=== PATIENT | male | born 1930 | race Hispanic/Latino ===

== ENCOUNTER 2017-02-14 12:34 | Day surgery (SDC) | payer OTHER ==
[2017-02-14 13:09] VITALS: BMI 14.3
[2017-02-14] MEDS ORDERED: Propofol 10 mg/ml Inj (20 ML) ONE (14:02)
[2017-02-14] MEDS ORDERED: ePHEDrine 50 mg/ml Inj ONE (14:03)
[2017-02-14] MEDS ORDERED: Methylene Blue 10 mg/ml (1ml) Inj ONE (15:14)
[2017-02-14] MEDS ORDERED: Sodium Chloride 0.9% 1,000 ML IV SCH (15:45)
[2017-02-14 16:48] VITALS: RESP 18
[2017-02-14 16:57] VITALS: BP 175/69; PULSE 66; TEMP 97.9; O2SAT 97
== END 2017-02-14 17:18 | disposition home or self-care (01) ==
LOC: ENDO 12:34
PROVIDERS: ATTEND Internal Medicine Gastroenterology
DX: D12.2 Benign neoplasm of ascending colon (principal); D37.4 Neoplasm of uncertain behavior of colon; K29.50 Unspecified chronic gastritis without bleeding; D64.9 Anemia, unspecified; R63.4 Abnormal weight loss; Z68.1 Body mass index [BMI] 19.9 or less, adult; K57.30 Diverticulosis of large intestine without perforation or abscess without bleeding; K64.8 Other hemorrhoids
CPT/HCPCS: 43239; 45380; 45381; 88305; 88342; J2001; J2704; J3010; J7040 ×2; Q9968

== ENCOUNTER 2017-03-31 10:35 | Inpatient (IN) | payer MEDICARE, OTHER ==
[2017-03-31] MEDS ORDERED: Sodium Chloride 0.9% 1,000 ML IV STA (11:15)
--- NOTE | 2017-03-31 11:18 | ED PDOC ---
Arrival/HPI - General Time Seen by Provider: 03/31/17 11:06 Historian: Patient - History of Present Illness Narrative History of Present Illness (Text): 03/31/17 11:07 Anjel Quinones is an 86 year old male, whose past medical history includes a hiatal hernia and gastritis, who presents to the emergency department complaining of 2 month duration of generalized weakness, near syncope, and lack of appetite. also states that patient has experienced urinary and fecal incontinence for the last two months. Patient notes that he has become so weak that he cannot get up without help. Patient denies any back pain or any other complaints at this time. PMD: Dr. Guy Time/Duration: Other (2 months) Symptom Onset: Gradual Symptom Course: Unchanged Activities at Onset: Rest Context: Home Past Medical History - Provider Review Nursing Documentation Reviewed: Yes - Cardiac Hx Pacemaker: No - Pulmonary Hx Respiratory Disorders: No - Neurological Hx Neurological Disorder: No - HEENT Hx Cataracts: Yes (b/l sched for sx on L eye end july) - Renal Hx Renal Disorder: No - Endocrine/Metabolic Hx Endocrine Disorders: No - Hematological/Oncological Hx Blood Transfusions: No - Integumentary Hx Dermatological Disorder: No - Musculoskeletal/Rheumatological Hx Musculoskeletal Disorders: No - Gastrointestinal Hx Gastrointestinal Disorders: No - Genitourinary/Gynecological Hx Hematuria: Yes (1989) Hx Prostate Problems: Yes (had turp 1989) Other/Comment: pt denies current prostate problems denies ever taking flomax - Psychiatric Hx Substance Use: No - Surgical History Other/Comment: prostate surgery - Anesthesia Hx Anesthesia Reactions: No Hx Malignant Hyperthermia: No Family/Social History - Physician Review Nursing Documentation Reviewed: Yes Family/Social History: No Known Family HX Smoking Status: Never Smoked Hx Alcohol Use: Yes (OCCASIONAL RED WINE) Hx Substance Use: No Allergies/Home Meds Allergies/Adverse Reactions: Allergies Sulfa (Sulfonamide Antibiotics) Allergy (Verified 07/06/16 13:03) RASH Home Medications: Home Meds Medication Instructions Recorded Confirmed Tamsulosin [Flomax] 0.4 mg PO DAILY 07/06/16 03/31/17 amLODIPine [Norvasc] 5 mg PO DAILY 07/10/16 03/31/17 Review of Systems - Physician Review All systems were reviewed & negative as marked: Yes Physical Exam - Physical Exam Narrative Physical Exam (Text): - Review of Systems Constitutional: Generalized weakness. Normal. absent: Fatigue, Weight Change, Fevers Eyes: Normal ENT: Normal Respiratory: Normal absent: SOB, Cough, Sputum Cardiovascular: Near syncope. Normal absent: Chest pain, Palpitations Gastrointestinal: Lack of appetite. absent: Abdominal pain, Diarrhea, Nausea, Vomiting Genitourinary: Urinary and Fecal incontinence. absent: Dysuria, Frequency, Hematuria Musculoskeletal: Normal. absent: Arthralgias, Back Pain, Neck Pain Skin: Normal Neurological: Normal absent: Focal Weakness Endocrine: Normal Hemo/Lymphatic: Normal Psychiatric: Normal - Physical exam Patient appears age appropriate, speaking full sentences without difficulty. Cachectic male. Lethargic. - Systems Exam Head: Present: Atraumatic, Normocephalic Pupils: Present: PERRL Extraocular Muscles: Present: EOMI Conjunctiva: Present: Normal Mouth: Present: Moist Mucous Membranes Neck: Present: Normal Range of Motion. No: MIDLINE TENDERNESS, Paraspinal Tenderness Respiratory/Chest: Present: Clear to Auscultation, Good Air Exchange. No: Respiratory Distress, Accessory Muscle Use, Tachypnic Cardiovascular: Present: Regular Rate and Rhythm, Normal S1, S2, Peripheral Pulses Present. No: Murmurs Abdomen: Slightly distended. No: Tenderness, Peritoneal Signs, Rebound, Guarding Back: Present: Normal Inspection. No: Midline Tenderness, Paraspinal Tenderness Upper Extremity: Present: Normal Inspection. No: Cyanosis, Edema Lower Extremity: Present: Normal Inspection. No: Edema Neurological: Present: GCS=15, Speech Normal, cranial nerves II through XII fully intact with no cerebellar abnormality, neuro-sensory fully intact. No focal neurological deficits. Skin: Present: Warm, Dry, Normal Color. No: Rashes Lymphatic: Present: OX3, NI, NC Psychiatric: Present: Alert, Oriented x 3, Normal Insight, Normal Concentration 03/31/17 11:54 Vital Signs Reviewed: Yes Vital Signs Temp Pulse Resp BP Pulse Ox 03/31/17 18:37 108 H 19 171/92 H 98 03/31/17 17:25 86 16 163/81 H 98 03/31/17 15:00 86 17 150/83 98 03/31/17 13:33 89 17 156/71 H 95 03/31/17 11:00 98.6 F 82 18 140/70 98 Temperature: Afebrile Blood Pressure: Normal Pulse: Regular Respiratory Rate: Normal Appearance: Positive for: Cachectic Pain Distress: None Mental Status: Positive for: Alert and Oriented X 3 Medical Decision Making ED Course and Treatment: 03/31/17 11:07 Impression: 86 year old male complaining of 2 month duration of generalized weakness, near syncope, lack of appetite, and urinary and fecal incontinence. Plan: -- EKG -- Chest X-ray -- Abdomen and Pelvis CT with IV contrast -- Lumbar Spine CT with contrast -- Blood Culture -- Urine Culture and Urinalysis -- Labs -- IV Fluids -- Reassess and disposition Prior Visits: Notes and results from previous visits were reviewed. Patient had an endoscopy on 02/14/17. He was found to have a hiatal hernia and gastritis. Progress Notes: EKG shows NSR at [address]-segment elevations, normal intervals. Interpreted by me. 03/31/17 12:[address] Guy in detail, who asked to consult Dr. Eid and Tammy and to admit patient into his service. 03/31/17 12:[address] Eid, who states that she will see patient. 03/31/17 13:[address] Munoz, [facility] will see pt in the ER pt seen by Dr. Eid in the ER 14:[address] Brooks Rosario again, states will evaluate pt 03/31/17 14:35 CT Abdomen and Pelvis without intravenous contrast Dictator : Sergio Ortega MD FINDINGS: LOWER THORAX:Scarring at the right lung base. LIVER:Unremarkable. No gross lesion or ductal dilatation. GALLBLADDER AND BILE DUCTS:Unremarkable. PANCREAS:Unremarkable. No gross lesion or ductal dilatation. SPLEEN:Unremarkable. ADRENALS:Unremarkable. No mass. KIDNEYS AND URETERS:There is moderate bilateral hydronephrosis and perinephric stranding. The previous study showed a mass in the right kidney that is more difficult to appreciate on this nonenhanced study. VASCULATURE:Unremarkable. No aortic aneurysm. BOWEL:Unremarkable. No obstruction. No gross mural thickening. There is severe constipation with fecal impaction APPENDIX:Unremarkable. Normal appendix. PERITONEUM:Unremarkable. No free fluid. No free air. LYMPH NODES:Unremarkable. No enlarged lymph nodes. BLADDER:There is severe distention of the bladder which measures 15 cm in diameter and 18 cm height. This extends above the level of the iliac crests REPRODUCTIVE:Unremarkable. BONES:No acute fracture. OTHER FINDINGS:None. IMPRESSION: Severe distention of the urinary bladder with bilateral hydronephrosis and perinephric stranding. 03/31/17 15:22 CT Lumbar Spine without contrast: Dictator : Sergio Ortega MD FINDINGS: VERTEBRAE:Unremarkable. No fracture. Normal alignment. DISCS/SPINAL CANAL/NEURAL FORAMINA: L1-2: Unremarkable. L2-3: Unremarkable. L3-4: Mild disc bulging and mild facet arthropathy without stenosis L4-5: Mild disc bulging and mild facet arthropathy without stenosis L5-S1: Disc degeneration at L5-S1 with right-sided osteophyte and mild right- sided foraminal stenosis PARASPINAL SOFT TISSUES:Unremarkable. OTHER FINDINGS:None. IMPRESSION: Degenerative changes at L5-S1 with right-sided foraminal stenosis. No evidence of compression fracture 03/31/17 15:36 on US, >2L of urine noted mult attempts at urinary cath. placement by mult RN's unsuccessfull, including coudet karen Munoz again, states will not be able to come in until later recommends suprapubic bladder drainage if necessary dw pt's and son, along with patient went over the pro's and con's of procedure verbal consent obtained zulema Desir Dr. pt to the MICU 03/31/17 15:41 PROCEDURE: emergent suprapubic catheter placement Performed by the emergency provider Consent: Informed consent, after discussion of the risks, benefits, and alternatives to the procedure. karen pt and , son was obtained. Timeout: A timeout to verify the correct patient, procedure, and site was performed. Procedure Site: suprapubic Indication: bladder outlet obstruction and acute renal failure with uremia Preparation: sterile procedure, prepped with chloraprep Procedure: US guidance, no bleeding, good urine drainage through TLC. seldinger technique. 1% lidocaine local anesthetic. Post-procedure: The patient tolerated the procedure well with no immediate complications 03/31/17 18:25 Chest X-ray: Dictator : Sergio Ortega MD FINDINGS: LUNGS:There is a patchy infiltrate in the right lower lobe consistent with pneumonia PLEURA:No pneumothorax or pleural fluid seen. CARDIOVASCULAR:Normal. OSSEOUS STRUCTURES:No significant abnormalities. VISUALIZED UPPER ABDOMEN:Normal. OTHER FINDINGS:None. IMPRESSION: Right lower lobe pneumonia - Lab Interpretations Microbiology Results: Microbiology Results 03/31/17 11:38 Blood-Venous Blood Culture - Preliminary NO GROWTH AFTER 3 DAYS 03/31/17 12:17 Blood-Venous Blood Culture - Preliminary NO GROWTH AFTER 48 HOURS 03/31/17 15:36 Urine Urine Culture - Final No Growth (<1,000 CFU/ML) Lab Results: 03/31/17 11:38 03/31/17 11:38 Lab Results 03/31/17 15:36: Urine Color Yellow, Urine Appearance Clear, Urine pH 6.0, Ur Specific [place] 1.015, Urine Protein Negative, Urine Glucose (UA) Negative, Urine Ketones Negative, Urine Blood Trace-intact H, Urine Nitrate Negative, Urine Bilirubin Negative, Urine Urobilinogen 0.2, Ur Leukocyte Esterase Negative , Urine RBC 2 - 5, Urine WBC 0 - 2 03/31/17 13:48: pCO2 33 L, pO2 76.0 L, HCO3 19.1 L, ABG pH 7.37, ABG Total CO2 20.1 L, ABG O2 Saturation 97.9, ABG O2 Content 14.5 L, ABG Base Excess -5.4 L, ABG Hemoglobin 10.8 L, ABG Carboxyhemoglobin 2.0 H, POC ABG HHb (Measured) 2.0, ABG Methemoglobin 1.1, ABG O2 Capacity 14.8 L, Hgb O2 Saturation 94.9 L, FiO2 21.0 03/31/17 11:38: Procalcitonin 0.18 L 03/31/17 11:38: Sodium 137, Potassium 5.5 H, Chloride 99, Carbon Dioxide 23, Anion Gap 21 H, BUN 104 H, Creatinine 7.9 H, Est GFR ( Amer) 8, Est GFR ( Non-Af Amer) 7, Random Glucose 114 H, Calcium 9.1, Total Bilirubin 0.6, AST 28, ALT 23, Alkaline Phosphatase 89, Total Protein 6.9, Albumin 3.7, Globulin 3.1, Albumin/Globulin Ratio 1.2 03/31/17 11:38: PT 11.6, INR 1.07, APTT 27.2 03/31/17 11:38: WBC 12.1 H D, RBC 3.65, Hgb 10.9 L, Hct 31.7 L, MCV 86.8, MCH 29.9, MCHC 34.4, RDW 13.7, Plt Count 320, MPV 9.2, Gran % 90.3 H, Lymph % (Auto ) 4.3 L, [place] % (Auto) 5.0, Eos % (Auto) 0.2 L, Baso % (Auto) 0.2, Gran # 10.95 H, Lymph # 0.5 L, [place] # 0.6, Eos # 0.0, Baso # 0.03 I have reviewed the lab results: Yes - RAD Interpretation Radiology Orders: 03/31/17 11:16 CHEST ONE VIEW [RAD] Stat 03/31/17 12:26 ABD & PELVIS W/O PO OR IV CONT [CT] Stat 03/31/17 12:57 LUMBAR SPINE W/O CONTRAST [CT] Stat - Medication Orders Current Medication Orders: Amlodipine Besylate (Norvasc) 5 mg PO DAILY [facility] Last Admin: 04/03/17 09:10 Dose: 5 mg Heparin Sodium (Porcine) (Heparin) 5,000 units SC Q12 [facility] PRN Reason: Protocol Last Admin: 04/03/17 09:10 Dose: 5,000 units Potassium Chloride 20 meq/ (Sodium Chloride) 1,010 mls @ 70 mls/hr IV .[id number] [facility] Last Admin: 04/03/17 11:09 Dose: 70 mls/hr Pantoprazole Sodium (Protonix Ec Tab) 40 mg PO 0600 [facility] Last Admin: 04/03/17 05:15 Dose: 40 mg Tamsulosin HCl (Flomax) 0.4 mg PO DAILY [facility] Last Admin: 04/03/17 09:09 Dose: 0.4 mg Discontinued Medications Diphenhydramine HCl (Benadryl) 25 mg PO ONCE ONE Stop: 04/01/17 00:04 Last Admin: 04/01/17 00:22 Dose: 25 mg Sodium Chloride (Sodium Chloride 0.9%) 1,000 mls @ 1,000 mls/hr IV .Q1H STA Stop: 03/31/17 12:14 Last Admin: 03/31/17 11:35 Dose: 1,000 mls/hr Sodium Chloride (Sodium Chloride 0.9%) 1,000 mls @ 150 mls/hr IV .[id number] [facility] Last Admin: 04/02/17 06:24 Dose: 150 mls/hr Ceftriaxone Sodium (Rocephin 1 Gram Ivpb) 1 gm in 100 mls @ 100 mls/hr IVPB DAILY [facility] PRN Reason: Protocol Last Admin: 04/03/17 09:10 Dose: 100 mls/hr Sodium Chloride (Sodium Chloride 0.9%) 1,000 mls @ 70 mls/hr IV .[id number] [facility] Last Admin: 04/02/17 18:25 Dose: 70 mls/hr Magnesium Sulfate/Dextrose (Magnesium Sulfate 1 Gm/100 Ml D5w) 1 gm in 100 mls @ 100 mls/hr IVPB ONCE ONE Stop: 04/02/17 15:29 Last Admin: 04/02/17 15:18 Dose: 100 mls/hr Potassium Chloride (Potassium Chloride 20 Meq/100 Ml) 20 meq in 100 mls @ 50 mls/hr IVPB Q2H JULIAN Stop: 04/02/17 18:29 Last Admin: 04/02/17 18:22 Dose: 50 mls/hr Magnesium Sulfate/Dextrose (Magnesium Sulfate 1 Gm/100 Ml D5w) 1 gm in 100 mls @ 100 mls/hr IVPB ONCE ONE Stop: 04/03/17 11:23 Last Admin: 04/03/17 11:07 Dose: 100 mls/hr Iohexol (Omnipaque 350 150 Ml) Confirm Administered Dose 150 ml .ROUTE .STK-MED ONE Stop: 03/31/17 11:58 Pantoprazole Sodium (Protonix Inj) 40 mg IVP DAILY [facility] Last Admin: 04/01/17 09:36 Dose: 40 mg Pneumococcal Polyvalent Vaccine (Pneumovax 23 Vaccine) 0.5 ml IM .ONCE ONE Stop: 03/31/17 22:21 Potassium Chloride (K-Dur 20 Meq Er Tab) 20 meq PO ONCE ONE Stop: 04/02/17 09:31 Last Admin: 04/02/17 09:45 Dose: 20 meq - Scribe Statement The provider has reviewed the documentation as recorded by the Scribe Kylie Lucas Provider Scribe Attestation: All medical record entries made by the Scribe were at my direction and personally dictated by me. I have reviewed the chart and agree that the record accurately reflects my personal performance of the history, physical exam, medical decision making, and the department course for this patient. I have also personally directed, reviewed, and agree with the discharge instructions and disposition. Disposition/Present on Arrival - Present on Arrival Any Indicators Present on Arrival: No History of DVT/PE: No History of Uncontrolled Diabetes: No Urinary Catheter: No History Surgical Site Infection Following: None - Disposition Have Diagnosis and Disposition been Completed?: Yes Diagnosis: Acute renal failure Disposition: HOSPITALIZED Disposition Time: 12:28 Patient Plan: ICU Patient Problems: Current Active Problems Problem Status Onset Bladder outlet obstruction Acute Hypokalemia Acute Renal cell carcinoma Suspected Acute renal failure Resolved Condition: CRITICAL
[2017-03-31 11:21] VITALS: BMI 15.2
[2017-03-31 11:40] LABS: ADD MANUAL DIFF? NO
[2017-03-31 11:48] LABS: BASO # 0.03 K/mm3 (0.0-2.0); BASO % 0.2 % (0.0-3.0); EOS % 0.2 % (1.5-5.0); GRAN # 10.95 (1.4-6.5); GRAN % 90.3 % (50.0-68.0); HEMATOCRIT 31.7 % (42.0-52.0); LYMPH # 0.5 (1.2-3.4); LYMPH % 4.3 % (22.0-35.0); MEAN CELL VOLUME 86.8 fl (80.0-105.0); MEAN CORPUSCULAR HEMOGLOBIN 29.9 pg (25.0-35.0); MEAN CORPUSCULAR HGB CONC 34.4 g/dl (31.0-37.0); MEAN PLATELET VOLUME 9.2 fl (7.0-11.0); MONO # 0.6 (0.1-0.6); PLATELET COUNT 320 10^3/uL (120.0-450.0); RED CELL DISTRIBUTION WIDTH 13.7 % (11.5-14.5); WHITE BLOOD COUNT 12.1 10^3/ul (4.5-11.0)
[2017-03-31 11:54] LABS: INR 1.07 (0.93-1.08); PARTIAL THROMBOPLASTIN TIME 27.2 Seconds (23.7-30.8)
[2017-03-31 11:55] LABS: ALB/GLOB RATIO 1.2 (1.1-1.8); BILIRUBIN,TOTAL 0.6 mg/dL (0.2-1.3); CALCIUM 9.1 mg/dL (8.4-10.5); POTASSIUM 5.5 mmol/L (3.6-5.0); TOTAL PROTEIN 6.9 g/dL (5.8-8.3)
[2017-03-31 13:50] LABS: ARTERIAL BLOOD GAS HCO3 19.1 mmol/L (21-28); ARTERIAL BLOOD GAS O2 CAPACITY 14.8 mL/dl (16-24); ARTERIAL BLOOD GAS O2 CONTENT 14.5 ML/dl (15-23); ARTERIAL BLOOD GAS PH 7.37 (7.35-7.45); ARTERIAL BLOOD HGB O2 SAT 94.9 % (95.0-98.0); METHEMOGLOBIN 1.1 % (0.0-3.0)
--- NOTE | 2017-03-31 14:31 | CT ---
PROCEDURE: CT Abdomen and Pelvis without intravenous contrast HISTORY: obstr. uropathy? COMPARISON: 11/11/2016 TECHNIQUE: Without contrast. Contrast Dose: Radiation dose: Total exam DLP = 243 mGy-cm. This CT exam was performed using one or more of the following dose reduction techniques: Automated exposure control, adjustment of the mA and/or kV according to patient size, and/or use of iterative reconstruction technique. FINDINGS: LOWER THORAX: Scarring at the right lung base. LIVER: Unremarkable. No gross lesion or ductal dilatation. GALLBLADDER AND BILE DUCTS: Unremarkable. PANCREAS: Unremarkable. No gross lesion or ductal dilatation. SPLEEN: Unremarkable. ADRENALS: Unremarkable. No mass. KIDNEYS AND URETERS: There is moderate bilateral hydronephrosis and perinephric stranding. The previous study showed a mass in the right kidney that is more difficult to appreciate on this nonenhanced study. VASCULATURE: Unremarkable. No aortic aneurysm. BOWEL: Unremarkable. No obstruction. No gross mural thickening. There is severe constipation with fecal impaction APPENDIX: Unremarkable. Normal appendix. PERITONEUM: Unremarkable. No free fluid. No free air. LYMPH NODES: Unremarkable. No enlarged lymph nodes. BLADDER: There is severe distention of the bladder which measures 15 cm in diameter and 18 cm height. This extends above the level of the iliac crests REPRODUCTIVE: Unremarkable. BONES: No acute fracture. OTHER FINDINGS: None. IMPRESSION: Severe distention of the urinary bladder with bilateral hydronephrosis and perinephric stranding.
--- NOTE | 2017-03-31 14:34 | CT ---
PROCEDURE: CT Lumbar Spine without contrast HISTORY: incontinence COMPARISON: None. TECHNIQUE: Axial computed tomography images were obtained of the lumbar spine without the use of intravenous contrast. Coronal and sagittal reformatted images were created and reviewed. Radiation dose: Total exam DLP = 180 mGy-cm. This CT exam was performed using one or more of the following dose reduction techniques: Automated exposure control, adjustment of the mA and/or kV according to patient size, and/or use of iterative reconstruction technique. FINDINGS: VERTEBRAE: Unremarkable. No fracture. Normal alignment. DISCS/SPINAL CANAL/NEURAL FORAMINA: L1-2: Unremarkable. L2-3: Unremarkable. L3-4: Mild disc bulging and mild facet arthropathy without stenosis L4-5: Mild disc bulging and mild facet arthropathy without stenosis L5-S1: Disc degeneration at L5-S1 with right-sided osteophyte and mild right-sided foraminal stenosis PARASPINAL SOFT TISSUES: Unremarkable. OTHER FINDINGS: None. IMPRESSION: Degenerative changes at L5-S1 with right-sided foraminal stenosis. No evidence of compression fracture
--- NOTE | 2017-03-31 15:31 | RAD ---
PROCEDURE: CHEST RADIOGRAPH, 1 VIEW HISTORY: cough COMPARISON: 07/10/2016 FINDINGS: LUNGS: There is a patchy infiltrate in the right lower lobe consistent with pneumonia PLEURA: No pneumothorax or pleural fluid seen. CARDIOVASCULAR: Normal. OSSEOUS STRUCTURES: No significant abnormalities. VISUALIZED UPPER ABDOMEN: Normal. OTHER FINDINGS: None. IMPRESSION: Right lower lobe pneumonia
--- NOTE | 2017-03-31 15:55 | CARD ---
APPROVED REPORT EKG Measurement Heart [id number] <Conclusion> Normal sinus rhythm Normal ECG
[2017-03-31 15:59] LABS: URINE BILIRUBIN NEGATIVE (NEGATIVE); URINE BLOOD TRACE-INTACT (NEGATIVE); URINE GLUCOSE (UA) NEGATIVE (NEGATIVE); URINE KETONE NEGATIVE (NEGATIVE); URINE LEUKOCYTE ESTERASE NEGATIVE Leu/uL (NEGATIVE); URINE PROTEIN NEGATIVE mg/dL (<30 mg/dL); URINE UROBILINOGEN 0.2 E.U./dL (<1 E.U./dL)
[2017-03-31 16:01] LABS: URINE APPEARANCE CLEAR (CLEAR); URINE COLOR YELLOW (YELLOW)
--- NOTE | 2017-03-31 16:03 | CP.PCM.HP ---
History of Present Illness - History of Present Illness History of Present Illness: 86 yo male presents with progessive edema, generalized weakness, poor appetite over several days. Seen in ED with ARF due to bladder outlet obstruction. ED unable to pass catheter, called Present on Admission - Present on Admission Any Indicators Present on Admission: No Review of Systems - Constitutional Constitutional: Anorexia, Fatigue, Malaise, Weight Loss, Weakness - Cardiovascular Cardiovascular: Dyspnea on Exertion, Edema - Gastrointestinal Gastrointestinal: Abdominal Pain - Genitourinary Genitourinary: Change in Urinary Stream, Difficulty Urinating, Bladder Distension - Musculoskeletal Musculoskeletal: Abnormal Gait, Arthralgias Past Patient History - Past Medical History & Family History Past Medical History?: Yes - Past Social History Smoking Status: Never Smoked - CARDIAC Hx Pacemaker: No - PULMONARY Hx Respiratory Disorders: No - NEUROLOGICAL Hx Neurological Disorder: No - HEENT Hx Cataracts: Yes (b/l sched for sx on L eye end july) - RENAL Hx Chronic Kidney Disease: No - ENDOCRINE/METABOLIC Hx Endocrine Disorders: No - HEMATOLOGICAL/ONCOLOGICAL Hx Blood Transfusions: No Hx Cancer: Yes (probable renal cell CA) - INTEGUMENTARY Hx Dermatological Problems: No - MUSCULOSKELETAL/RHEUMATOLOGICAL Hx Musculoskeletal Disorders: No Hx Arthritis: Yes - GASTROINTESTINAL Hx Gastrointestinal Disorders: No - GENITOURINARY/GYNECOLOGICAL Hx Hematuria: Yes (1989) Hx Prostate Problems: Yes (had turp 1989) Other/Comment: pt denies current prostate problems denies ever taking flomax - PSYCHIATRIC Hx Substance Use: No - SURGICAL HISTORY Other/Comment: prostate surgery - ANESTHESIA Hx Anesthesia Reactions: No Hx Malignant Hyperthermia: No Meds Allergies/Adverse Reactions: Allergies Allergy/AdvReac Type Severity Reaction Status Date / Time Sulfa (Sulfonamide Allergy RASH Verified 07/06/16 13:03 Antibiotics) Physical Exam - Constitutional Appears: Toxic, Cachectic, Chronically Ill - Eye Exam Eye Exam: EOMI Pupil Exam: PERRL - ENT Exam ENT Exam: Normal Exam - Neck Exam Neck exam: Positive for: Normal Inspection - Respiratory Exam Respiratory Exam: Clear to Auscultation Bilateral - Cardiovascular Exam Cardiovascular Exam: REGULAR RHYTHM - GI/Abdominal Exam GI & Abdominal Exam: Distended, Firm, Hypoactive Bowel Sounds, Tenderness - Exam Exam: Bladder Distension - Extremities Exam Extremities exam: Positive for: pedal edema - Neurological Exam Neurological exam: Alert, Oriented x3 - Skin Skin Exam: Dry, Warm Results - Vital Signs Recent Vital Signs: Last Vital Signs Temp 98.6 F 03/31/17 11:00 Pulse 89 03/31/17 13:33 Resp 17 03/31/17 13:33 BP 156/71 H 03/31/17 13:33 Pulse Ox 95 03/31/17 13:33 - Labs Result Diagrams: 03/31/17 11:38 03/31/17 11:38 Labs: Laboratory Results - last 24 hr 03/31/17 03/31/17 03/31/17 11:38 11:38 11:38 WBC 12.1 H D RBC 3.65 Hgb 10.9 L Hct 31.7 L MCV 86.8 MCH 29.9 MCHC 34.4 RDW 13.7 Plt Count 320 MPV 9.2 Gran % 90.3 H Lymph % (Auto) 4.3 L [place] % (Auto) 5.0 Eos % (Auto) 0.2 L Baso % (Auto) 0.2 Gran # 10.95 H Lymph # 0.5 L [place] # 0.6 Eos # 0.0 Baso # 0.03 PT 11.6 INR 1.07 APTT 27.2 pCO2 pO2 HCO3 ABG pH ABG Total CO2 ABG O2 Saturation ABG O2 Content ABG Base Excess ABG Hemoglobin ABG Carboxyhemoglobin POC ABG HHb (Measured) ABG Methemoglobin ABG O2 Capacity Hgb O2 Saturation FiO2 Sodium 137 Potassium 5.5 H Chloride 99 Carbon Dioxide 23 Anion Gap 21 H BUN 104 H Creatinine 7.9 H Est GFR ( Amer) 8 Est GFR (Non-Af Amer) 7 Random Glucose 114 H Calcium 9.1 Total Bilirubin 0.6 AST 28 ALT 23 Alkaline Phosphatase 89 Total Protein 6.9 Albumin 3.7 Globulin 3.1 Albumin/Globulin Ratio 1.2 03/31/17 13:48 WBC RBC Hgb Hct MCV MCH MCHC RDW Plt Count MPV Gran % Lymph % (Auto) [place] % (Auto) Eos % (Auto) Baso % (Auto) Gran # Lymph # [place] # Eos # Baso # PT INR APTT pCO2 33 L pO2 76.0 L HCO3 19.1 L ABG pH 7.37 ABG Total CO2 20.1 L ABG O2 Saturation 97.9 ABG O2 Content 14.5 L ABG Base Excess -5.4 L ABG Hemoglobin 10.8 L ABG Carboxyhemoglobin 2.0 H POC ABG HHb (Measured) 2.0 ABG Methemoglobin 1.1 ABG O2 Capacity 14.8 L Hgb O2 Saturation 94.9 L FiO2 21.0 Sodium Potassium Chloride Carbon Dioxide Anion Gap BUN Creatinine Est GFR ( Amer) Est GFR (Non-Af Amer) Random Glucose Calcium Total Bilirubin AST ALT Alkaline Phosphatase Total Protein Albumin Globulin Albumin/Globulin Ratio Assessment & Plan (1) Acute renal failure Status: Acute (2) Hypertension Status: Chronic (3) Bladder outlet obstruction Status: Acute (4) Renal cell carcinoma Status: Acute - Assessment and Plan (Free Text) Plan: consult dr. donald for catheter placement, renal consult dr. santoyo - Date & Time Date: 03/31/17 Time: 14:30
[2017-03-31 16:17] LABS: URINE WBC 0 - 2 /hpf (0-6)
--- NOTE | 2017-03-31 16:36 | CP.PCM.CON ---
<Abundio Landin - Last Filed: 03/31/17 17:30> History of Present Illness - History of Present Illness History of Present Illness: ICU Consult Note 85 M with a PMHx of HTN, rt renal tumor, gastritis, hiatal hernia and BPH presenting to [facility] ED with complaints of weakness, lethargy and worsening abdominal distention. Pt at bedside for additional history. Pt recently had a EGD/colonoscopy (02/14/17) which demonstrated a hiatal hernia and colonic polyp with cancerous cells, however was excised by GI, Dr. Owens with a subsequent fu in August. Pt also evaluated by , Dr. Sotelo/[place] regarding Nephrectomy for rt renal tumor approx 3 weeks ago. Pt states that for the past 2 -3 weeks he has been experiencing increasingly energy with poor appetite and subsequent weight loss. Pt also has complaints of urine/fecal incontinence for the past 2-3weeks. Pt was seen and examined at bedside. Pt has a distended abdomen with abdominal discomfort. Pt denied fever, chills, sob, chest pain, n/v /d/c. Pt unable to be catherterized due to bladder outlet obstruction. Suprapubic catheter placed by ED. PMHx: HTN, rt renal tumor, gastritis, hiatal hernia and BPH PSHx: Cataracts (b/l), TURP SHx: Denied tobacco, admits to social ETOH and denied illicits FamilyHx: Noncontributory Meds: Norvasc, flomax Allergies: Sulfa PMD: Dr. Guy Review of Systems - Review of Systems Review of Systems: as per HPI otherwise negative Past Patient History - Past Medical History & Family History Past Medical History?: Yes - Past Social History Smoking Status: Never Smoked - CARDIAC Hx Pacemaker: No - PULMONARY Hx Respiratory Disorders: No - NEUROLOGICAL Hx Neurological Disorder: No - HEENT Hx Cataracts: Yes (b/l sched for sx on L eye end july) - RENAL Hx Chronic Kidney Disease: No - ENDOCRINE/METABOLIC Hx Endocrine Disorders: No - HEMATOLOGICAL/ONCOLOGICAL Hx Blood Transfusions: No Hx Cancer: Yes (probable renal cell CA) - INTEGUMENTARY Hx Dermatological Problems: No - MUSCULOSKELETAL/RHEUMATOLOGICAL Hx Musculoskeletal Disorders: No Hx Arthritis: Yes - GASTROINTESTINAL Hx Gastrointestinal Disorders: No - GENITOURINARY/GYNECOLOGICAL Hx Hematuria: Yes (1989) Hx Prostate Problems: Yes (had turp 1989) Other/Comment: pt denies current prostate problems denies ever taking flomax - PSYCHIATRIC Hx Substance Use: No - SURGICAL HISTORY Other/Comment: prostate surgery - ANESTHESIA Hx Anesthesia Reactions: No Hx Malignant Hyperthermia: No Meds Allergies/Adverse Reactions: Allergies Allergy/AdvReac Type Severity Reaction Status Date / Time Sulfa (Sulfonamide Allergy RASH Verified 07/06/16 13:03 Antibiotics) Physical Exam - Constitutional Appears: Unkempt, Cachectic, Chronically Ill - Head Exam Head Exam: ATRAUMATIC, NORMAL INSPECTION, NORMOCEPHALIC - Eye Exam Eye Exam: EOMI, Normal appearance, PERRL Pupil Exam: NORMAL ACCOMODATION, PERRL - ENT Exam ENT Exam: Mucous Membranes Moist, Normal Exam - Neck Exam Neck exam: Positive for: Normal Inspection - Respiratory Exam Respiratory Exam: Clear to Auscultation Bilateral, NORMAL BREATHING PATTERN - Cardiovascular Exam Cardiovascular Exam: REGULAR RHYTHM, +S1, +S2 - GI/Abdominal Exam GI & Abdominal Exam: Distended, Normal Bowel Sounds, Soft, Tenderness - Exam Exam: Bladder Distension - Extremities Exam Extremities exam: Positive for: normal inspection, pedal pulses present. Negative for: pedal edema, tenderness - Neurological Exam Neurological exam: Alert, CN II-XII Intact, Normal Gait, Oriented x3, Reflexes Normal - Psychiatric Exam Psychiatric exam: Normal Affect, Normal Mood - Skin Skin Exam: Dry, Intact, Normal Color, Warm Results - Vital Signs Recent Vital Signs: Last Vital Signs Temp 98.6 F 03/31/17 11:00 Pulse 89 03/31/17 13:33 Resp 17 03/31/17 13:33 BP 156/71 H 03/31/17 13:33 Pulse Ox 95 03/31/17 13:33 - Labs Result Diagrams: 03/31/17 11:38 03/31/17 11:38 Labs: Laboratory Results - last 24 hr 03/31/17 03/31/17 03/31/17 11:38 11:38 11:38 WBC 12.1 H D RBC 3.65 Hgb 10.9 L Hct 31.7 L MCV 86.8 MCH 29.9 MCHC 34.4 RDW 13.7 Plt Count 320 MPV 9.2 Gran % 90.3 H Lymph % (Auto) 4.3 L [place] % (Auto) 5.0 Eos % (Auto) 0.2 L Baso % (Auto) 0.2 Gran # 10.95 H Lymph # 0.5 L [place] # 0.6 Eos # 0.0 Baso # 0.03 PT 11.6 INR 1.07 APTT 27.2 pCO2 pO2 HCO3 ABG pH ABG Total CO2 ABG O2 Saturation ABG O2 Content ABG Base Excess ABG Hemoglobin ABG Carboxyhemoglobin POC ABG HHb (Measured) ABG Methemoglobin ABG O2 Capacity Hgb O2 Saturation FiO2 Sodium 137 Potassium 5.5 H Chloride 99 Carbon Dioxide 23 Anion Gap 21 H BUN 104 H Creatinine 7.9 H Est GFR ( Amer) 8 Est GFR (Non-Af Amer) 7 Random Glucose 114 H Calcium 9.1 Total Bilirubin 0.6 AST 28 ALT 23 Alkaline Phosphatase 89 Total Protein 6.9 Albumin 3.7 Globulin 3.1 Albumin/Globulin Ratio 1.2 Urine Color Urine Appearance Urine pH Ur Specific [place] Urine Protein Urine Glucose (UA) Urine Ketones Urine Blood Urine Nitrate Urine Bilirubin Urine Urobilinogen Ur Leukocyte Esterase Urine RBC Urine WBC 03/31/17 03/31/17 13:48 15:36 WBC RBC Hgb Hct MCV MCH MCHC RDW Plt Count MPV Gran % Lymph % (Auto) [place] % (Auto) Eos % (Auto) Baso % (Auto) Gran # Lymph # [place] # Eos # Baso # PT INR APTT pCO2 33 L pO2 76.0 L HCO3 19.1 L ABG pH 7.37 ABG Total CO2 20.1 L ABG O2 Saturation 97.9 ABG O2 Content 14.5 L ABG Base Excess -5.4 L ABG Hemoglobin 10.8 L ABG Carboxyhemoglobin 2.0 H POC ABG HHb (Measured) 2.0 ABG Methemoglobin 1.1 ABG O2 Capacity 14.8 L Hgb O2 Saturation 94.9 L FiO2 21.0 Sodium Potassium Chloride Carbon Dioxide Anion Gap BUN Creatinine Est GFR ( Amer) Est GFR (Non-Af Amer) Random Glucose Calcium Total Bilirubin AST ALT Alkaline Phosphatase Total Protein Albumin Globulin Albumin/Globulin Ratio Urine Color Yellow Urine Appearance Clear Urine pH 6.0 Ur Specific [place] 1.015 Urine Protein Negative Urine Glucose (UA) Negative Urine Ketones Negative Urine Blood Trace-intact H Urine Nitrate Negative Urine Bilirubin Negative Urine Urobilinogen 0.2 Ur Leukocyte Esterase Negative Urine RBC 2 - 5 Urine WBC 0 - 2 Assessment & Plan - Assessment and Plan (Free Text) Assessment: 86 M admitted to ICU with acute renal failure 2/2 obstructive uropathy for HD and electrolyte monitoring to prevent further deterioration. Neuro: stable baseline dementia, however AAOx3 moving all extremities CT lumbar spine: Degenerative changes at L5-S1 with right-sided foraminal stenosis. No evidence of compression fracture Pulm: Stable 02 sat >90% on RA CVS: HD Stable continue norvasc Maintain MAP>70 continue to monitor maintain euvolemia GI: HHD GI ppx Renal: ARF 2/[address] Abd/pelvis: Severe distention of the urinary bladder with bilateral hydronephrosis and perinephric stranding. bladder scan >2L noted suprapubic catheter placed Urologist, Dr. Munoz consulted, fu recs Continue to monitor and replete electrolytes as needed ID: Afebrile, leukocytosis fu ua, ucx, blood cx, cxr, pct Rocephin continue to monitor Heme: H&H stable DVT ppx Endo: maintain euglycemia 140-180 seen reviewed and discussed with attending <Abraham CLAY,Momo H - Last Filed: 03/31/17 18:31> Meds - Medications Medications: Current Medications Amlodipine Besylate (Norvasc) 5 mg PO DAILY [facility] Heparin Sodium (Porcine) (Heparin) 5,000 units SC Q12 JULIAN PRN Reason: Protocol Sodium Chloride (Sodium Chloride 0.9%) 1,000 mls @ 150 mls/hr IV .Q6H40M [facility] Last Admin: 03/31/17 17:43 Dose: 150 mls/hr Ceftriaxone Sodium (Rocephin 1 Gram Ivpb) 1 gm in 100 mls @ 100 mls/hr IVPB DAILY [facility] PRN Reason: Protocol Last Admin: 03/31/17 17:43 Dose: 100 mls/hr Pantoprazole Sodium (Protonix Inj) 40 mg IVP DAILY [facility] Last Admin: 03/31/17 17:43 Dose: 40 mg Tamsulosin HCl (Flomax) 0.4 mg PO DAILY [facility] Last Admin: 03/31/17 17:43 Dose: 0.4 mg Results - Vital Signs Recent Vital Signs: Last Vital Signs Temp 98.6 F 03/31/17 11:00 Pulse 86 03/31/17 17:25 Resp 16 03/31/17 17:25 BP 163/81 H 03/31/17 17:25 Pulse Ox 98 03/31/17 17:25 - Labs Result Diagrams: 03/31/17 11:38 03/31/17 11:38 Attending/Attestation - Attestation I have personally seen and examined this patient.: Yes I have fully participated in the care of the patient.: Yes I have reviewed all pertinent clinical information: Yes Notes (Text): 03/31/17 18:20 86 y/ o M w/ Obstructive uropathy CT abd pelvis noted to show large obstructed bladder. Bladder mass noted. Needs Urology emergently to place veloz / suprapubic catheter CT shows also signs of Pyelo , abx to be start and cx to drawn . Malignancy concern and need for further evaluation . cc time 55 min
[2017-03-31] MEDS: Sodium Chloride 0.9% 1,000 ML IV SCH (17:43)
[2017-03-31] MEDS: cefTRIAXone 1 gm 1 GM/100 ML BAG IVPB SCH (17:43)
[2017-03-31] MEDS ORDERED: Pneumococcal 23-Valent Vaccine IM ONE (22:20)
[2017-04-01 00:38] LABS: ADD MANUAL DIFF? NO
[2017-04-01 00:41] LABS: BASO # 0.02 K/mm3 (0.0-2.0); BASO % 0.1 % (0.0-3.0); EOS # 0.1 (0.0-0.7); EOS % 0.5 % (1.5-5.0); GRAN # 12.96 (1.4-6.5); GRAN % 88.1 % (50.0-68.0); HEMATOCRIT 31.7 % (42.0-52.0); LYMPH # 0.8 (1.2-3.4); LYMPH % 5.4 % (22.0-35.0); MEAN CELL VOLUME 86.4 fl (80.0-105.0); MEAN CORPUSCULAR HEMOGLOBIN 29.4 pg (25.0-35.0); MEAN CORPUSCULAR HGB CONC 34.1 g/dl (31.0-37.0); MEAN PLATELET VOLUME 9.4 fl (7.0-11.0); MONO # 0.9 (0.1-0.6); MONO % 5.9 % (1.0-6.0); PLATELET COUNT 322 10^3/uL (120.0-450.0); RED CELL DISTRIBUTION WIDTH 13.6 % (11.5-14.5); WHITE BLOOD COUNT 14.7 10^3/ul (4.5-11.0)
[2017-04-01 00:57] LABS: ALB/GLOB RATIO 1.1 (1.1-1.8); BILIRUBIN,TOTAL 0.5 mg/dL (0.2-1.3); MAGNESIUM 2.2 mg/dL (1.7-2.2); POTASSIUM 4.5 mmol/L (3.6-5.0); TOTAL PROTEIN 6.7 g/dL (5.8-8.3)
[2017-04-01] MEDS: Sodium Chloride 0.9% 1,000 ML IV SCH (02:49)
--- NOTE | 2017-04-01 04:32 | CON ---
DATE: 03/31/2017 HISTORY OF PRESENT ILLNESS: An 86-year-old male previously unknown to me, was brought to the emergency room by family members because failure to thrive, lethargy, weight loss, incontinence of bowel and urine, and abdominal distention. 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 History is mostly obtained from ER doctors, chart. As per the chart, the patient has a history of hypertension, right renal mass, hiatal hernia, and BPH. The patient was being seen by Dr. Munoz as an outpatient. Right nephrostomy was being considered. The patient reports that he has been having decreased appetite and energy for the last 2-3 weeks, significant weight loss, urine and fecal incontinence. In the emergency room he was found to have potassium of 5.5, BUN of 109, creatinine was 1.0 on 01/31/2017. PAST MEDICAL/SURGICAL HISTORY: Hypertension, right renal mass, gastritis, hiatal hernia, weight loss, and poor appetite. FAMILY HISTORY: Noncontributory. SOCIAL HISTORY: No smoking, nonalcoholic, no IV drug abuse. ALLERGIES: NO KNOWN DRUG ALLERGIES. MEDICATIONS AT HOME: Amlodipine 5 mg daily and Flomax 0.4. REVIEW OF SYSTEMS: All systems are reviewed, pertinent positives as mentioned in the history of presenting illness, rest is unremarkable. PHYSICAL EXAMINATION: GENERAL: Cachectic thinly built male lying in bed in mild to moderate distress. VITAL SIGNS: Blood pressure 156/71, heart rate 89, respiratory rate 17, and temperature 98.6. HEENT: Normocephalic, atraumatic, positive pallor. NECK: Supple. No JVD. CARDIAC: S1 and S2. Regular rate and rhythm. No murmur. No rub. LUNGS: Bilateral equal air entry. No rales. ABDOMEN: Distended, firm in the lower abdomen. Positive tenderness. EXTREMITIES: No lower extremity edema. INTAKE AND OUTPUT: Not charted. LABORATORY DATA: WBC 12.1, hemoglobin 10.9 ,hematocrit 32, and platelet 320, 90% polys. Sodium 137, potassium 5.5, chloride 99, CO2 23, BUN 104, creatinine 7.9, glucose 114, calcium 9.1, AST 28, ALT 23, and albumin 3.7. Urinalysis not available, as the patient has not passed any urine. CT of the abdomen and pelvis, morbid bilateral hydronephrosis with perinephric stranding. Right renal mass seen in old CT, severe distention of the urinary bladder. ASSESSMENT: 1. Acute kidney injury largely secondary to obstructive uropathy/urinary retention. 2. Hyperkalemia secondary acute kidney injury. 3. Right renal mass. 4. Weight loss/failure to thrive/suspect for malignancy. 5. Leukocytosis. 6. Anemia. PLAN: 1. Urine evaluation for decompression of the bladder. 2. IV fluids once bladder is decompressed. 3. Monitor urine output closely. 4. Monitor for postobstructive diuresis. 5. Monitor electrolytes. 6. Urinalysis and urine culture. 7. Empiric antibiotics to cover for UTI/pyelonephritis. Thank you for the courtesy of this consultation. We will follow this patient closely with you. Nel Eid MD
[2017-04-01 06:49] LABS: ADD MANUAL DIFF? NO
[2017-04-01 07:06] LABS: ALB/GLOB RATIO 1.1 (1.1-1.8); BILIRUBIN,TOTAL 0.6 mg/dL (0.2-1.3); CALCIUM 8.6 mg/dL (8.4-10.5); POTASSIUM 4.4 mmol/L (3.6-5.0); TOTAL PROTEIN 6.1 g/dL (5.8-8.3)
[2017-04-01 07:10] LABS: BASO # 0.02 K/mm3 (0.0-2.0); BASO % 0.2 % (0.0-3.0); EOS # 0.1 (0.0-0.7); EOS % 0.5 % (1.5-5.0); GRAN # 11.61 (1.4-6.5); GRAN % 88.2 % (50.0-68.0); HEMATOCRIT 29.2 % (42.0-52.0); LYMPH # 0.7 (1.2-3.4); LYMPH % 5.6 % (22.0-35.0); MEAN CELL VOLUME 86.6 fl (80.0-105.0); MEAN CORPUSCULAR HEMOGLOBIN 29.1 pg (25.0-35.0); MEAN CORPUSCULAR HGB CONC 33.6 g/dl (31.0-37.0); MEAN PLATELET VOLUME 9.1 fl (7.0-11.0); MONO # 0.7 (0.1-0.6); MONO % 5.5 % (1.0-6.0); PLATELET COUNT 293 10^3/uL (120.0-450.0); RED CELL DISTRIBUTION WIDTH 13.7 % (11.5-14.5); WHITE BLOOD COUNT 13.1 10^3/ul (4.5-11.0)
--- NOTE | 2017-04-01 07:57 | CP.PCM.PN ---
Subjective - Date & Time of Evaluation Date of Evaluation: 04/01/17 Time of Evaluation: 07:40 - Subjective Subjective: NAD Objective - Vital Signs/Intake and Output Vital Signs (last 24 hours): Temp Pulse Resp BP Pulse Ox 97.8 F 97 H 19 171/92 H 93 L 03/31/17 22:06 04/01/17 04:00 03/31/17 22:06 03/31/17 22:06 03/31/17 20:46 Intake and Output: 04/01/17 04/01/17 06:59 18:59 Intake Total 1500 Output Total 2910 Balance -1410 - Medications Medications: Current Medications Amlodipine Besylate (Norvasc) 5 mg PO DAILY [facility] Heparin Sodium (Porcine) (Heparin) 5,000 units SC Q12 JULIAN PRN Reason: Protocol Last Admin: 03/31/17 21:42 Dose: Not Given Sodium Chloride (Sodium Chloride 0.9%) 1,000 mls @ 150 mls/hr IV .Q6H40M [facility] Last Admin: 04/01/17 02:49 Dose: 150 mls/hr Ceftriaxone Sodium (Rocephin 1 Gram Ivpb) 1 gm in 100 mls @ 100 mls/hr IVPB DAILY JULIAN PRN Reason: Protocol Last Admin: 03/31/17 17:43 Dose: 100 mls/hr Pantoprazole Sodium (Protonix Inj) 40 mg IVP DAILY [facility] Last Admin: 03/31/17 17:43 Dose: 40 mg Tamsulosin HCl (Flomax) 0.4 mg PO DAILY [facility] Last Admin: 03/31/17 17:43 Dose: 0.4 mg - Labs Labs: 04/01/17 06:40 04/01/17 06:40 PT 11.6 Seconds (9.9-11.8) 03/31/17 11:38 INR 1.07 (0.93-1.08) 03/31/17 11:38 APTT 27.2 Seconds (23.7-30.8) 03/31/17 11:38 - Respiratory Exam Respiratory Exam: Clear to Ausculation Bilateral, NORMAL BREATHING PATTERN - Cardiovascular Exam Cardiovascular Exam: REGULAR RHYTHM - GI/Abdominal Exam GI & Abdominal Exam: Soft, Normal Bowel Sounds - Exam Additional comments: indwelling veloz catheter intact, urine clear - Extremities Exam Extremities Exam: Pedal Edema - Neurological Exam Neurological Exam: Alert, Awake - Skin Skin Exam: Dry, Warm Assessment and Plan (1) Acute renal failure Status: Acute (2) Hypertension Status: Chronic (3) Bladder outlet obstruction Status: Acute (4) Renal cell carcinoma Status: Suspected - Assessment and Plan (Free Text) Assessment: ARF improving Plan: continue monitor kidney function, lytes, and renal follow-up, SW for dc planning
[2017-04-01] MEDS: cefTRIAXone 1 gm 1 GM/100 ML BAG IVPB SCH (09:31)
--- NOTE | 2017-04-01 12:43 | CP.CCUPN ---
CCU Subjective - Physician Review Events Since Last Encounter (Free Text): 04/01/17 12:37 No acute events overnight. Beck placed by urology and urine output improved. Pt has no other complaints and is feeling well. CCU Objective - Vital Signs / Intake & Output Vital Signs (Last 4 hours): Vital Signs Pulse Resp BP Pulse Ox 04/01/17 10:00 93 H 88 H 154/63 H 98 04/01/17 09:50 93 H 25 H 96 04/01/17 09:40 104 H 22 94 L 04/01/17 09:38 88 145/64 04/01/17 09:30 91 H 21 95 04/01/17 09:20 94 H 29 H 94 L 04/01/17 09:10 98 H 45 H 90 L 04/01/17 09:00 93 H 23 142/64 96 04/01/17 08:50 104 H 37 H 95 04/01/17 08:40 94 H 36 H 94 L Intake and Output (Last 8hrs): Intake & Output 03/31/17 04/01/17 04/01/17 22:59 06:59 14:59 Intake Total 150 1350 Output Total 2635 1775 Balance -2485 -425 Weight 100 lb Intake: IV 150 1200 Left Forearm 1200 Right Antecubital 150 Oral 150 Output: Urine 2635 1775 Urethral (Beck) 635 1775 Other: Voiding Method Indwelling Catheter Indwelling Catheter # Bowel Movements 2 1 - Physical Exam Head: Positive for: Atraumatic, Normocephalic Extroacular Muscles: Positive for: EOMI Conjunctiva: Positive for: Normal Mouth: Positive for: Moist Mucous Membranes Neck: Positive for: Normal Range of Motion Respiratory/Chest: Positive for: Clear to Auscultation, Good Air Exchange Cardiovascular: Positive for: Regular Rate and Rhythm Abdomen: Positive for: Normal Bowel Sounds Upper Extremity: Positive for: Normal Inspection Lower Extremity: Positive for: Normal Inspection Neurological: Positive for: GCS=15, CN II-XII Intact, Speech Normal - Medications Active Medications: Active Medications Generic Name Dose Route Start Last Admin Trade Name Freq PRN Reason Stop Dose Admin Amlodipine Besylate 5 mg 04/01/17 10:00 04/01/17 09:38 Norvasc PO 5 mg DAILY JULIAN Administration Heparin Sodium (Porcine) 5,000 units 03/31/17 22:00 04/01/17 09:36 Heparin SC 5,000 units Q12 JULIAN Administration Protocol Sodium Chloride 1,000 mls @ 150 mls/hr 03/31/17 17:30 04/01/17 02:49 Sodium Chloride 0.9% IV 150 mls/hr .Q6H40M JULIAN Administration Ceftriaxone Sodium 1 gm in 100 mls @ 100 mls/hr 03/31/17 17:30 04/01/17 09:31 Rocephin 1 Gram Ivpb IVPB 100 mls/hr DAILY JULIAN Administration Protocol Pantoprazole Sodium 40 mg 03/31/17 17:30 04/01/17 09:36 Protonix Inj IVP 40 mg DAILY JULIAN Administration Tamsulosin HCl 0.4 mg 03/31/17 17:30 04/01/17 09:39 Flomax PO 0.4 mg DAILY JULIAN Administration - Patient Studies Lab Studies: Lab Studies 04/01/17 04/01/17 04/01/17 Range/Units 06:40 06:40 00:20 WBC 13.1 H (4.5-11.0) 10^3/ul RBC 3.37 L (3.5-6.1) 10^6/uL Hgb 9.8 L (14.0-18.0) g/dL Hct 29.2 L (42.0-52.0) % MCV 86.6 (80.0-105.0) fl MCH 29.1 (25.0-35.0) pg MCHC 33.6 (31.0-37.0) g/dl RDW 13.7 (11.5-14.5) % Plt Count 293 (120.0-450.0) 10^3/uL MPV 9.1 (7.0-11.0) fl Gran % 88.2 H (50.0-68.0) % Lymph % (Auto) 5.6 L (22.0-35.0) % [place] % (Auto) 5.5 (1.0-6.0) % Eos % (Auto) 0.5 L (1.5-5.0) % Baso % (Auto) 0.2 (0.0-3.0) % Gran # 11.61 H (1.4-6.5) Lymph # 0.7 L (1.2-3.4) [place] # 0.7 H (0.1-0.6) Eos # 0.1 (0.0-0.7) Baso # 0.02 (0.0-2.0) K/mm3 Sodium 143 142 (132-148) mmol/L Potassium 4.4 4.5 (3.6-5.0) mmol/L Chloride 107 105 (95-110) mmol/L Carbon Dioxide 21 21 (21-33) mmol/L Anion Gap 19 21 H (10-20) BUN 53 H 69 H (7-21) mg/dL Creatinine 2.0 H 3.5 H (0.5-1.4) mg/dL Est GFR ( Amer) 38 20 Est GFR (Non-Af Amer) 32 17 Random Glucose 72 88 (70-110) mg/dL Calcium 8.6 9.0 (8.4-10.5) mg/dL Magnesium 2.2 (1.7-2.2) mg/dL Total Bilirubin 0.6 0.5 (0.2-1.3) mg/dL AST 26 24 (15-59) U/L ALT 13 28 (7-56) U/L Alkaline Phosphatase 75 89 (38-133) U/L Total Protein 6.1 6.7 (5.8-8.3) g/dL Albumin 3.2 3.5 (3.0-4.8) g/dL Globulin 2.9 3.2 gm/dL Albumin/Globulin Ratio 1.1 1.1 (1.1-1.8) 04/01/17 Range/Units 00:20 WBC 14.7 H D (4.5-11.0) 10^3/ul RBC 3.67 (3.5-6.1) 10^6/uL Hgb 10.8 L (14.0-18.0) g/dL Hct 31.7 L (42.0-52.0) % MCV 86.4 (80.0-105.0) fl MCH 29.4 (25.0-35.0) pg MCHC 34.1 (31.0-37.0) g/dl RDW 13.6 (11.5-14.5) % Plt Count 322 (120.0-450.0) 10^3/uL MPV 9.4 (7.0-11.0) fl Gran % 88.1 H (50.0-68.0) % Lymph % (Auto) 5.4 L (22.0-35.0) % [place] % (Auto) 5.9 (1.0-6.0) % Eos % (Auto) 0.5 L (1.5-5.0) % Baso % (Auto) 0.1 (0.0-3.0) % Gran # 12.96 H (1.4-6.5) Lymph # 0.8 L (1.2-3.4) [place] # 0.9 H (0.1-0.6) Eos # 0.1 (0.0-0.7) Baso # 0.02 (0.0-2.0) K/mm3 Sodium (132-148) mmol/L Potassium (3.6-5.0) mmol/L Chloride (95-110) mmol/L Carbon Dioxide (21-33) mmol/L Anion Gap (10-20) BUN (7-21) mg/dL Creatinine (0.5-1.4) mg/dL Est GFR ( Amer) Est GFR (Non-Af Amer) Random Glucose (70-110) mg/dL Calcium (8.4-10.5) mg/dL Magnesium (1.7-2.2) mg/dL Total Bilirubin (0.2-1.3) mg/dL AST (15-59) U/L ALT (7-56) U/L Alkaline Phosphatase (38-133) U/L Total Protein (5.8-8.3) g/dL Albumin (3.0-4.8) g/dL Globulin gm/dL Albumin/Globulin Ratio (1.1-1.8) Laboratory Results - last 24 hr 04/01/17 04/01/17 04/01/17 00:20 00:20 06:40 WBC 14.7 H D 13.1 H RBC 3.67 3.37 L Hgb 10.8 L 9.8 L Hct 31.7 L 29.2 L MCV 86.4 86.6 MCH 29.4 29.1 MCHC 34.1 33.6 RDW 13.6 13.7 Plt Count 322 293 MPV 9.4 9.1 Gran % 88.1 H 88.2 H Lymph % (Auto) 5.4 L 5.6 L [place] % (Auto) 5.9 5.5 Eos % (Auto) 0.5 L 0.5 L Baso % (Auto) 0.1 0.2 Gran # 12.96 H 11.61 H Lymph # 0.8 L 0.7 L [place] # 0.9 H 0.7 H Eos # 0.1 0.1 Baso # 0.02 0.02 Sodium 142 Potassium 4.5 Chloride 105 Carbon Dioxide 21 Anion Gap 21 H BUN 69 H Creatinine 3.5 H Est GFR ( Amer) 20 Est GFR (Non-Af Amer) 17 Random Glucose 88 Calcium 9.0 Magnesium 2.2 Total Bilirubin 0.5 AST 24 ALT 28 Alkaline Phosphatase 89 Total Protein 6.7 Albumin 3.5 Globulin 3.2 Albumin/Globulin Ratio 1.1 04/01/17 06:40 WBC RBC Hgb Hct MCV MCH MCHC RDW Plt Count MPV Gran % Lymph % (Auto) [place] % (Auto) Eos % (Auto) Baso % (Auto) Gran # Lymph # [place] # Eos # Baso # Sodium 143 Potassium 4.4 Chloride 107 Carbon Dioxide 21 Anion Gap 19 BUN 53 H Creatinine 2.0 H Est GFR ( Amer) 38 Est GFR (Non-Af Amer) 32 Random Glucose 72 Calcium 8.6 Magnesium Total Bilirubin 0.6 AST 26 ALT 13 Alkaline Phosphatase 75 Total Protein 6.1 Albumin 3.2 Globulin 2.9 Albumin/Globulin Ratio 1.1 Review of Systems - EENT Eyes: UNREMARKABLE Ears: UNREMARKABLE Nose/Mouth/Throat: UNREMARKABLE - Cardiovascular Cardiovascular: UNREMARKABLE - Respiratory Respiratory: UNREMARKABLE - Gastrointestinal Gastrointestinal: Loose Stools - Genitourinary Genitourinary: Change in Urinary Stream, Difficulty Urinating - Musculoskeletal Musculoskeletal: UNREMARKABLE Critical Care Progress Note - Nutrition Nutrition: Nutrition Category Date Time Status Heart Healthy Diet [DIET] Diets 03/31/17 Dinner Ordered Assessment/Plan - Assessment and Plan (Free Text) Assessment: 86 y/o M w/ Acute obstructive uropathy w/ CT signs of early Pyelonephritis Beck placed by urology and urine output improved greatly. > 5L Creatnine improving quickly with hydration and drainage On Rocephin empirically for elevated WBC and concern for UTi / Pyelo. cx following . Plan per work up for the patient's overall condition for malignancy and worsening status . dvt p cc time 45 min
--- NOTE | 2017-04-01 15:15 | PCM.URO ---
Urology Progress Note - Objective Lab Studies: Reviewed (new veloz inserted monitor pt sse dictated note) Lab Results Last 24 Hours: Laboratory Results - last 24 hr 04/01/17 04/01/17 04/01/17 00:20 00:20 06:40 WBC 14.7 H D 13.1 H RBC 3.67 3.37 L Hgb 10.8 L 9.8 L Hct 31.7 L 29.2 L MCV 86.4 86.6 MCH 29.4 29.1 MCHC 34.1 33.6 RDW 13.6 13.7 Plt Count 322 293 MPV 9.4 9.1 Gran % 88.1 H 88.2 H Lymph % (Auto) 5.4 L 5.6 L [place] % (Auto) 5.9 5.5 Eos % (Auto) 0.5 L 0.5 L Baso % (Auto) 0.1 0.2 Gran # 12.96 H 11.61 H Lymph # 0.8 L 0.7 L [place] # 0.9 H 0.7 H Eos # 0.1 0.1 Baso # 0.02 0.02 Sodium 142 Potassium 4.5 Chloride 105 Carbon Dioxide 21 Anion Gap 21 H BUN 69 H Creatinine 3.5 H Est GFR ( Amer) 20 Est GFR (Non-Af Amer) 17 Random Glucose 88 Calcium 9.0 Magnesium 2.2 Total Bilirubin 0.5 AST 24 ALT 28 Alkaline Phosphatase 89 Total Protein 6.7 Albumin 3.5 Globulin 3.2 Albumin/Globulin Ratio 1.1 04/01/17 06:40 WBC RBC Hgb Hct MCV MCH MCHC RDW Plt Count MPV Gran % Lymph % (Auto) [place] % (Auto) Eos % (Auto) Baso % (Auto) Gran # Lymph # [place] # Eos # Baso # Sodium 143 Potassium 4.4 Chloride 107 Carbon Dioxide 21 Anion Gap 19 BUN 53 H Creatinine 2.0 H Est GFR ( Amer) 38 Est GFR (Non-Af Amer) 32 Random Glucose 72 Calcium 8.6 Magnesium Total Bilirubin 0.6 AST 26 ALT 13 Alkaline Phosphatase 75 Total Protein 6.1 Albumin 3.2 Globulin 2.9 Albumin/Globulin Ratio 1.1 Intake & Output: Intake & Output 03/31/17 04/01/17 04/01/17 18:59 06:59 18:59 Intake Total 1500 450 Output Total 1500 2910 1700 Balance -1500 -1410 -1250 Weight 100 lb Intake: IV 1350 Left Forearm 1200 Right Antecubital 150 Oral 150 450 Output: Urine 1500 2910 1700 Urethral (Veloz) 2410 1700 Other: Voiding Method Indwelling Catheter Indwelling Catheter # Bowel Movements 1 2 Vital Signs: Vital Signs - 24 hr 03/31/17 03/31/17 03/31/17 17:25 18:37 20:46 Temperature 97.9 F Pulse Rate 86 108 H 91 H Pulse Rate [ Apical] Respiratory 16 19 18 Rate Blood Pressure 163/81 H 171/92 H 150/87 O2 Sat by Pulse 98 98 93 L Oximetry 03/31/17 04/01/17 04/01/17 22:06 00:46 03:10 Temperature 97.8 F Pulse Rate 108 H 90 91 H Pulse Rate [ 108 H Apical] Respiratory 19 25 H Rate Blood Pressure 171/92 H O2 Sat by Pulse 95 Oximetry 04/01/17 04/01/17 04/01/17 03:20 03:30 03:40 Temperature Pulse Rate 92 H 92 H 89 Pulse Rate [ Apical] Respiratory 26 H 25 H 22 Rate Blood Pressure O2 Sat by Pulse 95 95 96 Oximetry 04/01/17 04/01/17 04/01/17 03:50 04:00 04:01 Temperature Pulse Rate 97 H 97 H 93 H Pulse Rate [ Apical] Respiratory 31 H 24 19 Rate Blood Pressure 140/73 O2 Sat by Pulse 94 L 95 95 Oximetry 04/01/17 04/01/17 04/01/17 04:10 04:20 04:30 Temperature Pulse Rate 95 H 108 H 90 Pulse Rate [ Apical] Respiratory 27 H 39 H 24 Rate Blood Pressure O2 Sat by Pulse 95 95 96 Oximetry 04/01/17 04/01/17 04/01/17 04:40 04:50 05:00 Temperature Pulse Rate 87 86 89 Pulse Rate [ Apical] Respiratory 35 H 23 25 H Rate Blood Pressure 127/62 O2 Sat by Pulse 95 95 95 Oximetry 04/01/17 04/01/17 04/01/17 05:10 05:20 05:30 Temperature Pulse Rate 86 96 H 72 Pulse Rate [ Apical] Respiratory 22 32 H 18 Rate Blood Pressure O2 Sat by Pulse 95 97 94 L Oximetry 04/01/17 04/01/17 04/01/17 05:40 05:50 06:00 Temperature Pulse Rate 88 87 86 Pulse Rate [ Apical] Respiratory 27 H 30 H 24 Rate Blood Pressure 132/67 O2 Sat by Pulse 95 97 95 Oximetry 04/01/17 04/01/17 04/01/17 06:10 06:20 06:30 Temperature Pulse Rate 89 90 100 H Pulse Rate [ Apical] Respiratory 31 H 32 H 22 Rate Blood Pressure O2 Sat by Pulse 96 95 96 Oximetry 04/01/17 04/01/17 04/01/17 06:40 06:50 07:00 Temperature Pulse Rate 76 89 79 Pulse Rate [ Apical] Respiratory 19 22 20 Rate Blood Pressure 137/71 O2 Sat by Pulse 95 96 96 Oximetry 04/01/17 04/01/17 04/01/17 07:10 07:20 07:30 Temperature Pulse Rate 92 H 90 93 H Pulse Rate [ Apical] Respiratory 22 55 H 43 H Rate Blood Pressure O2 Sat by Pulse 94 L 92 L 94 L Oximetry 04/01/17 04/01/17 04/01/17 07:40 07:50 08:00 Temperature 98.3 F Pulse Rate 89 87 99 H Pulse Rate [ Apical] Respiratory 15 32 H 18 Rate Blood Pressure 133/72 O2 Sat by Pulse 95 94 L 96 Oximetry 04/01/17 04/01/17 04/01/17 08:10 08:20 08:30 Temperature Pulse Rate 104 H 102 H 101 H Pulse Rate [ Apical] Respiratory 23 17 32 H Rate Blood Pressure O2 Sat by Pulse 94 L 95 96 Oximetry 04/01/17 04/01/17 04/01/17 08:40 08:50 09:00 Temperature Pulse Rate 94 H 104 H 93 H Pulse Rate [ Apical] Respiratory 36 H 37 H 23 Rate Blood Pressure 142/64 O2 Sat by Pulse 94 L 95 96 Oximetry 04/01/17 04/01/17 04/01/17 09:10 09:20 09:30 Temperature Pulse Rate 98 H 94 H 91 H Pulse Rate [ Apical] Respiratory 45 H 29 H 21 Rate Blood Pressure O2 Sat by Pulse 90 L 94 L 95 Oximetry 04/01/17 04/01/17 04/01/17 09:38 09:40 09:50 Temperature Pulse Rate 88 104 H 93 H Pulse Rate [ Apical] Respiratory 22 25 H Rate Blood Pressure 145/64 O2 Sat by Pulse 94 L 96 Oximetry 04/01/17 04/01/17 04/01/17 10:00 10:10 10:20 Temperature Pulse Rate 93 H 83 93 H Pulse Rate [ Apical] Respiratory 88 H 21 28 H Rate Blood Pressure 154/63 H O2 Sat by Pulse 98 97 97 Oximetry 04/01/17 04/01/17 04/01/17 10:30 10:40 10:50 Temperature Pulse Rate 85 96 H 87 Pulse Rate [ Apical] Respiratory 25 H 50 H 25 H Rate Blood Pressure O2 Sat by Pulse 96 95 97 Oximetry 04/01/17 04/01/17 04/01/17 11:00 11:10 11:20 Temperature Pulse Rate 80 87 89 Pulse Rate [ Apical] Respiratory 25 H 18 26 H Rate Blood Pressure 144/67 O2 Sat by Pulse 96 97 96 Oximetry 04/01/17 04/01/17 04/01/17 11:30 11:40 11:50 Temperature Pulse Rate 77 76 80 Pulse Rate [ Apical] Respiratory 21 21 21 Rate Blood Pressure O2 Sat by Pulse 97 96 96 Oximetry 04/01/17 04/01/17 04/01/17 12:00 12:10 12:20 Temperature 98.7 F Pulse Rate 73 91 H 91 H Pulse Rate [ Apical] Respiratory 20 23 21 Rate Blood Pressure 123/52 L O2 Sat by Pulse 96 96 96 Oximetry 04/01/17 04/01/17 04/01/17 12:30 12:40 12:50 Temperature Pulse Rate 88 89 93 H Pulse Rate [ Apical] Respiratory 24 25 H 37 H Rate Blood Pressure O2 Sat by Pulse 94 L 97 96 Oximetry 04/01/17 04/01/17 04/01/17 13:00 13:10 13:20 Temperature Pulse Rate 85 74 74 Pulse Rate [ Apical] Respiratory 24 19 43 H Rate Blood Pressure 130/63 O2 Sat by Pulse 96 94 L 95 Oximetry 04/01/17 04/01/17 04/01/17 13:30 13:40 13:50 Temperature Pulse Rate 82 73 80 Pulse Rate [ Apical] Respiratory 23 79 H Rate Blood Pressure O2 Sat by Pulse 95 95 95 Oximetry 04/01/17 04/01/17 04/01/17 14:00 14:10 14:20 Temperature Pulse Rate 85 74 75 Pulse Rate [ Apical] Respiratory 26 H 38 H 70 H Rate Blood Pressure 118/46 L O2 Sat by Pulse 95 94 L 94 L Oximetry 04/01/17 14:30 Temperature Pulse Rate 87 Pulse Rate [ Apical] Respiratory 25 H Rate Blood Pressure O2 Sat by Pulse 96 Oximetry
--- NOTE | 2017-04-01 19:34 | PN ---
SUBJECTIVE: The patient is currently seen on 3R. He was transferred from the ICU. He appears to be stable. He has a Beck catheter in place. He has less discomfort in/or around the bladder area. His BUN and creatinine have been falling nicely with hydration and improvement in his urine output. MEDICATIONS: Medication list reviewed. The patient is currently on Flomax, heparin, Norvasc, Protonix, Rocephin, normal saline at 150 mL an hour. OBJECTIVE: INTAKE/OUTPUT: Intake is 1500 plus, output is 4410. VITAL SIGNS: Blood pressure ranging from 118 to 160 systolic, diastolic ranging from 46 to 81, heart rate 86, temperature 97.8, respiratory rate 20. HEENT: Shows significant temporomandibular wasting. Normocephalic and atraumatic. Conjunctivae are pale. Sclerae nonicteric. NECK: Supple. No neck vein distention. CHEST: Clear to auscultation and percussion. No rales, no rhonchi, no wheezing. CARDIOVASCULAR: Showed a regular rate and rhythm with a soft systolic murmur in left lower sternal border. ABDOMEN: Soft. Bowel sounds are normal. No suprapubic dullness. No rebound, no guarding, no masses. Diagnosed CBAT. No spinal tenderness. EXTREMITIES: Show no cyanosis, clubbing or edema. The patient does have an indwelling Beck catheter. LABORATORY DATA AND IMAGING: Admitting abdominal CT scan showed bilateral hydronephrosis with perinephric stranding. There was no mass seen in the right kidney which had been seen on earlier imaging study. His bladder was distended. This is all prior to placement of a Beck catheter. Labs: CBC; white blood cell count 13.1, hemoglobin of 9.8 with a platelet count of 2,93,000. Chemistries show normal electrolytes. BUN is down from 105 to 53. Baseline is in the low 20s. Creatinine is down from 7.9 to 2.0. His baseline creatinine is 1.0. Urine, 2 to 5 red blood cells, 0 to 2 white blood cells. Microbiology normal and blood cultures are negative in 24 hours. Stool for C. diff is negative. ASSESSMENT: 1. Acute renal failure secondary to obstructive uropathy likely secondary to benign prostatic hypertrophy with bladder outlet obstruction and all likely busch with placement of a Beck catheter, the entire urinary tract symptoms has decompressed and his BUN and creatine continues to ball to baseline levels. The patient is awaiting urology evaluation. He remains on Flomax. 2. Status post hyperkalemia secondary to acute failure, this has resolved. 3. Past history of right renal mass. This is not well seen on present noncontrast CT of the abdomen and pelvis. 4. Concerned about continued weight loss, failure to thrive, possible occult malignancy. Workup is in progress. 5. Mild anemia likely secondary to acute renal failure and perhaps underlying malignancy. PLAN: 1. Wait evaluation. 2. Continue to monitor accurate I's and O's. Once BUN and creatinine fall to baseline levels which should likely occur by tomorrow, IV fluids can be significantly cut back as long as long his oral intake is adequate. 3. Monitor electrolytes for any supplements necessary in his IV fluid hydration. 4. The patient is on empiric antibiotic therapy with no evidence of UTI on the admitting urinalysis. Unlikely that he has pyelonephritis. *------* accurate I's and O's. 5. Continued workup for occult malignancy and perhaps reevaluation for the right renal mass that on a previous imaging study. Derrick Bowden MD
--- NOTE | 2017-04-01 21:55 | OP ---
PROCEDURE DATE: 03/31/2017 PREOPERATIVE DIAGNOSIS: Urinary retention, voiding dysfunction, and renal failure. POSTOPERATIVE DIAGNOSIS: Urinary retention, voiding dysfunction, and renal failure. PROCEDURE: Insertion of a Beck catheter. COMPLICATIONS: There were no complications. INDICATION: See the history and physical and consultation. The patient has renal failure. DESCRIPTION OF PROCEDURE: Under sterile technique, we inserted a Beck catheter, it was somewhat difficult. First, we had to adjust the hair and skin to make sure that we can see the meatus well. Then, the urethra is mostly normal limits. At the bladder neck, it was somewhat difficult to negotiate, but we were able to with a little gentle force inserted a Beck catheter, we got clear yellow urine. The patient tolerated the procedure well without complication. Blaine Munoz MD
[2017-04-02] MEDS: Sodium Chloride 0.9% 1,000 ML IV SCH ×2 (00:02→06:24)
--- NOTE | 2017-04-02 01:47 | CON ---
DATE: 04/01/2017 HISTORY OF PRESENT ILLNESS: Mr. Quinones is a very pleasant gentleman, he is 86 years old. He is coming in now with renal failure and urinary retention. In the ER, it was unable to insert a Beck catheter, so they have asked me to consult on patient. The patient is previously known to me, he had a renal mass. I treated the patient and I have seen his before who actually referred the patient for a second opinion and that is currently under workup and evaluation, but meanwhile he comes into the ER today with creatinine and renal failure with urinary retention with more than a liter in his bladder. The emergency room doctor has called me, Dr. Guy has called me on consultation and we are requested to insert a Beck catheter. See the labs listed below, but basically his creatinine is noted be 7.9, almost 8. The past medical and surgical history is listed on the chart. The patient's doctor is Dr. Griffin Guy. Otherwise, unremarkable from urology standpoint. He has no history of prostate surgery. He may have had some kind of penile surgery, but he is not positive. REVIEW OF SYSTEMS: (The review of systems listed above is noncontributory). He says to me he has dementia, but when I walked near the bed, he said "Oh hi Dr. Munoz." So he has good facial recognition at least as a minimum. I have not seen him in a little while. SOCIAL HISTORY: On a social note, he is , his also attends to his care. PHYSICAL EXAMINATION GENERAL: A well-nourished male appearing younger than his stated age, in some mild distress. VITAL SIGNS: Within normal limits included in the chart. ABDOMEN: The abdomen is relatively grossly distended. There is no rebound or guarding (it all seems to be the bladder). LABORATORY DATA: See chart, but as mentioned the BUN and creatinine is 104 and 7.9, potassium is also a little elevated at 5.5. Calcium noted. Sodium also noted to be 137. White count is 12, hematocrit is 32%. The remainder of the labs is otherwise unremarkable. See the separately dictated procedure note where we inserted a Beck catheter with some difficulty. We were able to insert one. DIAGNOSES: 1. Renal mass. 2. Urinary retention. 3. Hematuria. 4. Renal failure. 5. Gross urinary retention PLAN: The plan as follows; we inserted a Beck catheter. Routine watch and monitor the patient. We will monitor his I's and O's, observe for any post-obstructive diuresis, we will leave this to medical team. We will follow up BUN and creatinine. Regarding the renal masses, this is not the acute problem, but we will keep an eye on it and if it is able to settle itself, we will monitor closely and then further plans will follow. Thank you for the urology consultation. Blaine Munoz MD
[2017-04-02] MEDS: Pantoprazole 40 mg EC Tab PO SCH (06:18)
[2017-04-02 07:46] LABS: ADD MANUAL DIFF? NO
[2017-04-02 07:50] LABS: BASO # 0.02 K/mm3 (0.0-2.0); BASO % 0.2 % (0.0-3.0); EOS # 0.2 (0.0-0.7); EOS % 1.6 % (1.5-5.0); GRAN % 81.7 % (50.0-68.0); HEMATOCRIT 26.6 % (42.0-52.0); LYMPH % 9.7 % (22.0-35.0); MEAN CELL VOLUME 86.9 fl (80.0-105.0); MEAN CORPUSCULAR HEMOGLOBIN 28.8 pg (25.0-35.0); MEAN CORPUSCULAR HGB CONC 33.1 g/dl (31.0-37.0); MEAN PLATELET VOLUME 9.2 fl (7.0-11.0); MONO # 0.7 (0.1-0.6); MONO % 6.8 % (1.0-6.0); PLATELET COUNT 320 10^3/uL (120.0-450.0); RED CELL DISTRIBUTION WIDTH 13.5 % (11.5-14.5); WHITE BLOOD COUNT 10.6 10^3/ul (4.5-11.0)
[2017-04-02 07:55] LABS: ALKALINE PHOSPHATASE 61 U/L (38-133); ALT/SGPT 27 U/L (7-56); AST/SGOT 28 U/L (15-59); BILIRUBIN,TOTAL 0.3 mg/dL (0.2-1.3); BLOOD UREA NITROGEN 21 mg/dL (7-21); CALCIUM 7.9 mg/dL (8.4-10.5); CARBON DIOXIDE 26 mmol/L (21-33); CHLORIDE 108 mmol/L (95-110); GFR AFRICAN-AMERICAN > 60; GLUCOSE,RANDOM 88 mg/dL (70-110); MAGNESIUM 1.6 mg/dL (1.7-2.2); POTASSIUM 3.3 mmol/L (3.6-5.0); SODIUM 142 mmol/L (132-148); TOTAL PROTEIN 5.4 g/dL (5.8-8.3)
[2017-04-02] MEDS ORDERED: Potassium Chloride 20 mEq ER Tab PO ONE (09:30)
[2017-04-02] MEDS ORDERED: Sodium Chloride 0.9% 1,000 ML IV SCH (09:30)
--- NOTE | 2017-04-02 09:34 | CP.PCM.PN ---
Subjective - Date & Time of Evaluation Date of Evaluation: 04/02/17 Time of Evaluation: 09:15 - Subjective Subjective: c/o pain/stiffness of legs, no sob. no cp Objective - Vital Signs/Intake and Output Vital Signs (last 24 hours): Temp Pulse Resp BP Pulse Ox 98.9 F 75 18 152/67 H 96 04/02/17 06:00 04/02/17 06:00 04/02/17 06:00 04/02/17 06:00 04/02/17 06:00 Intake and Output: 04/02/17 04/02/17 06:59 18:59 Intake Total 2795 Output Total 1900 Balance 895 - Medications Medications: Current Medications Amlodipine Besylate (Norvasc) 5 mg PO DAILY [facility] Last Admin: 04/01/17 09:38 Dose: 5 mg Heparin Sodium (Porcine) (Heparin) 5,000 units SC Q12 [facility] PRN Reason: Protocol Last Admin: 04/01/17 21:36 Dose: 5,000 units Ceftriaxone Sodium (Rocephin 1 Gram Ivpb) 1 gm in 100 mls @ 100 mls/hr IVPB DAILY [facility] PRN Reason: Protocol Last Admin: 04/01/17 09:31 Dose: 100 mls/hr Sodium Chloride (Sodium Chloride 0.9%) 1,000 mls @ 70 mls/hr IV .[id number] [facility] Pantoprazole Sodium (Protonix Ec Tab) 40 mg PO 0600 [facility] Last Admin: 04/02/17 06:18 Dose: 40 mg Potassium Chloride (K-Dur 20 Meq Er Tab) 20 meq PO ONCE ONE Stop: 04/02/17 09:31 Tamsulosin HCl (Flomax) 0.4 mg PO DAILY [facility] Last Admin: 04/01/17 09:39 Dose: 0.4 mg - Labs Labs: 04/02/17 07:00 04/02/17 07:00 PT 11.6 Seconds (9.9-11.8) 03/31/17 11:38 INR 1.07 (0.93-1.08) 03/31/17 11:38 APTT 27.2 Seconds (23.7-30.8) 03/31/17 11:38 - Respiratory Exam Respiratory Exam: Clear to Ausculation Bilateral, NORMAL BREATHING PATTERN - Cardiovascular Exam Cardiovascular Exam: REGULAR RHYTHM - GI/Abdominal Exam GI & Abdominal Exam: Soft, Normal Bowel Sounds - Extremities Exam Extremities Exam: Normal Inspection, Pedal Edema - Neurological Exam Neurological Exam: Alert, Awake - Skin Skin Exam: Dry, Warm Assessment and Plan (1) Acute renal failure Status: Resolved (2) Hypertension Status: Chronic (3) Bladder outlet obstruction Status: Acute (4) Renal cell carcinoma Status: Suspected (5) Hypokalemia Status: Acute - Assessment and Plan (Free Text) Plan: supplement potassium, follow-up, PT eval and tx, SW for dc palnning
[2017-04-02] MEDS: cefTRIAXone 1 gm 1 GM/100 ML BAG IVPB SCH (09:43)
[2017-04-02] MEDS ORDERED: Magnesium Sulfate 1 gm in D5W 1 GM/100 ML BAG IVPB ONE (14:30)
--- NOTE | 2017-04-02 15:16 | PN ---
DATE: 04/02/2017 SUBJECTIVE: The patient is seen lying in bed. He appears cachectic. He complains of pain in his lower extremities. He denies any chest tightness, shortness of breath as per the nursing staff. PO intake is very poor. PHYSICAL EXAMINATION: GENERAL: Cachectic elderly male, lying in bed. VITAL SIGNS: Blood pressure 152/67, heart rate 75, respiratory rate 18, temperature 98.9. HEENT: Normocephalic, atraumatic, positive pallor. NECK: Supple, no JVD. LUNGS: Bilateral equal air entry. CARDIAC: S1, S2, regular rate and rhythm. No murmur, no rub. ABDOMEN: Soft, nondistended, nontender, bowel sounds present. EXTREMITIES: No lower extremity edema. INTAKE AND OUTPUT: 1500/4410. LABORATORY DATA: WBC 10, hemoglobin 8.8, hematocrit 26.6, platelets 320. Sodium 142, potassium 3.3, chloride 108, CO2 of 26, BUN 21, creatinine 0.7, glucose 88, calcium 7.9, phosphorus 3.0, magnesium 1.6, albumin 2.7, corrected calcium is 8.8. Culture is negative. CURRENT MEDICATIONS: Flomax 0.4, heparin, amlodipine 5, Protonix 40, Rocephin 1 g daily, normal saline at 70. Potassium 20 mEq given x1. ASSESSMENT: 1. Resolved acute kidney injury, largely obstructive uropathy secondary to urinary retention. 2. Hypokalemia. 3. Hypomagnesemia. 4. Severe hypoalbuminemia. 5. Malnutrition, weight loss. 6. Right renal mass, suspicious for renal cell CA. PLAN: 1. Replace potassium IV. 2. Replace magnesium IV. 3. Push p.o. intake. 4. Plan for nephrectomy?? 5. Avoid nephrotoxins. Nel Eid MD
--- NOTE | 2017-04-02 18:45 | PCM.URO ---
Urology Progress Note - Subjective Abdominal Pain: Yes - Objective Lab Studies: Reviewed (markedly improved) Lab Results Last 24 Hours: Laboratory Results - last 24 hr 04/02/17 04/02/17 07:00 07:00 WBC 10.6 RBC 3.06 L Hgb 8.8 L Hct 26.6 L MCV 86.9 MCH 28.8 MCHC 33.1 RDW 13.5 Plt Count 320 MPV 9.2 Gran % 81.7 H Lymph % (Auto) 9.7 L [place] % (Auto) 6.8 H Eos % (Auto) 1.6 Baso % (Auto) 0.2 Gran # 8.70 H Lymph # 1.0 L [place] # 0.7 H Eos # 0.2 Baso # 0.02 Sodium 142 Potassium 3.3 L Chloride 108 Carbon Dioxide 26 Anion Gap 11 BUN 21 Creatinine 0.7 Est GFR ( Amer) > 60 Est GFR (Non-Af Amer) > 60 Random Glucose 88 Calcium 7.9 L Phosphorus 3.0 Magnesium 1.6 L Total Bilirubin 0.3 AST 28 ALT 27 Alkaline Phosphatase 61 Total Protein 5.4 L Albumin 2.7 L Globulin 2.7 Albumin/Globulin Ratio 1.0 L Intake & Output: Intake & Output 04/01/17 04/02/17 04/02/17 18:59 06:59 18:59 Intake Total 450 2795 480 Output Total 1700 1900 700 Balance -1250 895 -220 Intake: IV 2375 Left Forearm 2375 Oral 450 420 480 Output: Urine 1700 1900 700 Urethral (Veloz) 1700 1900 700 Other: Voiding Method Indwelling Catheter # Bowel Movements 2 1 1 Vital Signs: Vital Signs - 24 hr 04/02/17 04/02/17 04/02/17 06:00 09:42 16:21 Temperature 98.9 F 98.3 F Pulse Rate 75 83 Respiratory 18 19 Rate Blood Pressure 152/67 H 152/67 H 155/84 H O2 Sat by Pulse 96 95 Oximetry - Plan Advance Diet: Yes Additional Information: two issues: 1) renal failure, retention ---plan: flomax , maintain veloz. 2) renal mass-- plans: various options available- surgical extirpation is the standard but given his age and general health there are other options to be considered. Oncology with dr shah is on consult. Perhaps a biopsy with Dr. Sony coffman to confirm the diagnosis. Perhaps treatment with embolization or cryotherapy or RFA are options.
[2017-04-03] MEDS: Pantoprazole 40 mg EC Tab PO SCH (05:15)
[2017-04-03 08:23] LABS: ADD MANUAL DIFF? NO
[2017-04-03 08:32] LABS: BASO # 0.02 K/mm3 (0.0-2.0); BASO % 0.2 % (0.0-3.0); EOS # 0.2 (0.0-0.7); EOS % 2.5 % (1.5-5.0); GRAN % 80.3 % (50.0-68.0); HEMATOCRIT 27.7 % (42.0-52.0); LYMPH % 11.1 % (22.0-35.0); MEAN CELL VOLUME 87.1 fl (80.0-105.0); MEAN CORPUSCULAR HEMOGLOBIN 28.9 pg (25.0-35.0); MEAN CORPUSCULAR HGB CONC 33.2 g/dl (31.0-37.0); MEAN PLATELET VOLUME 9.1 fl (7.0-11.0); MONO # 0.5 (0.1-0.6); MONO % 5.9 % (1.0-6.0); PLATELET COUNT 320 10^3/uL (120.0-450.0); RED CELL DISTRIBUTION WIDTH 13.4 % (11.5-14.5); WHITE BLOOD COUNT 9.2 10^3/ul (4.5-11.0)
[2017-04-03 08:40] LABS: ALKALINE PHOSPHATASE 62 U/L (38-133); ALT/SGPT 28 U/L (7-56); AST/SGOT 28 U/L (15-59); BILIRUBIN,TOTAL 0.3 mg/dL (0.2-1.3); BLOOD UREA NITROGEN 15 mg/dL (7-21); CALCIUM 7.9 mg/dL (8.4-10.5); CARBON DIOXIDE 26 mmol/L (21-33); CHLORIDE 106 mmol/L (95-110); GFR AFRICAN-AMERICAN > 60; GLUCOSE,RANDOM 91 mg/dL (70-110); POTASSIUM 3.6 mmol/L (3.6-5.0); SODIUM 140 mmol/L (132-148); TOTAL PROTEIN 5.6 g/dL (5.8-8.3)
[2017-04-03] MEDS: cefTRIAXone 1 gm 1 GM/100 ML BAG IVPB SCH (09:10)
[2017-04-03] MEDS ORDERED: Magnesium Sulfate 1 gm in D5W 1 GM/100 ML BAG IVPB ONE (10:24)
[2017-04-03 12:07] LABS: MAGNESIUM 1.7 mg/dL (1.7-2.2)
--- NOTE | 2017-04-03 13:39 | CP.PCM.PN ---
Subjective - Date & Time of Evaluation Date of Evaluation: 04/03/17 Time of Evaluation: 12:45 - Subjective Subjective: NAD, no cp or sob Objective - Vital Signs/Intake and Output Vital Signs (last 24 hours): Temp Pulse Resp BP Pulse Ox 99 F 77 22 149/64 95 04/03/17 07:44 04/03/17 09:10 04/03/17 07:44 04/03/17 09:10 04/03/17 07:44 Intake and Output: 04/03/17 04/03/17 06:59 18:59 Intake Total 1260 Output Total 1100 Balance 160 - Medications Medications: Current Medications Amlodipine Besylate (Norvasc) 5 mg PO DAILY [facility] Last Admin: 04/03/17 09:10 Dose: 5 mg Heparin Sodium (Porcine) (Heparin) 5,000 units SC Q12 [facility] PRN Reason: Protocol Last Admin: 04/03/17 09:10 Dose: 5,000 units Potassium Chloride 20 meq/ (Sodium Chloride) 1,010 mls @ 70 mls/hr IV .[id number] [facility] Last Admin: 04/03/17 11:09 Dose: 70 mls/hr Pantoprazole Sodium (Protonix Ec Tab) 40 mg PO 0600 [facility] Last Admin: 04/03/17 05:15 Dose: 40 mg Tamsulosin HCl (Flomax) 0.4 mg PO DAILY [facility] Last Admin: 04/03/17 09:09 Dose: 0.4 mg - Labs Labs: 04/03/17 08:20 04/03/17 08:20 PT 11.6 Seconds (9.9-11.8) 03/31/17 11:38 INR 1.07 (0.93-1.08) 03/31/17 11:38 APTT 27.2 Seconds (23.7-30.8) 03/31/17 11:38 - Respiratory Exam Respiratory Exam: Clear to Ausculation Bilateral, NORMAL BREATHING PATTERN - Cardiovascular Exam Cardiovascular Exam: REGULAR RHYTHM - GI/Abdominal Exam GI & Abdominal Exam: Soft, Normal Bowel Sounds - Exam Additional comments: indwelling veloz inatct urine clear - Neurological Exam Neurological Exam: Alert, Awake, Oriented x3 - Skin Skin Exam: Dry, Warm Assessment and Plan (1) Acute renal failure Status: Resolved (2) Hypertension Status: Chronic (3) Bladder outlet obstruction Status: Resolved (4) Renal cell carcinoma Status: Suspected (5) Hypokalemia Status: Resolved - Assessment and Plan (Free Text) Plan: repeat cxr, consider CT chest if lung infiltrate persist r/o lung mets, oncology consult, follow-up, PT, possible TCU eval
--- NOTE | 2017-04-03 14:38 | PN ---
DATE: 04/03/2017 SUBJECTIVE: The patient is seen sitting in the chair. He is awake, he is alert and he is comfortable. He is very weak. He is cachectic. PHYSICAL EXAMINATION: GENERAL: Thinly built, cachectic elderly male. VITAL SIGNS: Blood pressure of 149/64, heart rate of 77, respiratory rate of 22, and temperature of 99 and T-max is 99. HEENT: Normocephalic and atraumatic. Positive pallor. NECK: Supple and no JVD. LUNGS: Bilateral equal air entry. No rales. CARDIAC: S1 and S2. Regular rate and rhythm. No murmur and no rub. ABDOMEN: Soft, nondistended and nontender, bowel sounds are present. EXTREMITIES: No lower extremity edema. INTAKE AND OUTPUT: 1740/1800. LABORATORY DATA: WBC of 9.2, hemoglobin of 9.2, hematocrit of 27.7, and platelets of 320. Sodium of 140, potassium of 3.6, chloride of 106, CO2 of 26, BUN of 15, creatinine of 0.7, and glucose of 91. Calcium is 7.9, albumin of 2.8, corrected calcium is 8.6, phosphorus is 3.0 and magnesium is 1.6. Culture is negative. CURRENT MEDICATIONS: Flomax, heparin, amlodipine 5 mg daily, Protonix, Rocephin, and normal saline at 70. Status post magnesium and K-riders. ASSESSMENT: 1. Resolved acute kidney injury, secondary to urinary retention. 2. Right renal mass, possibly renal cell carcinoma. 3. Hypokalemia. 4. Hypomagnesemia. 5. History of hypertension. 6. Anemia. PLAN: 1. Continue normal saline. Add potassium 20 mEq to each bag. 2. Replace magnesium. 3. Check iron, TIBC and ferritin. 4. Management of right renal mass which is most likely cancer, all options being considered. 5. Discontinue antibiotics? Nel Eid MD
[2017-04-03 14:56] LABS: IRON 35 ug/dL (45-180)
--- NOTE | 2017-04-03 16:19 | RAD ---
HISTORY: lung infiltrate COMPARISON: 03/31/2017 TECHNIQUE: Chest PA and lateral FINDINGS: LUNGS: There is slight improvement in the patchy infiltrate in the right lower lobe PLEURA: No significant pleural effusion identified. No pneumothorax apparent. CARDIOVASCULAR: Normal. OSSEOUS STRUCTURES: No significant abnormalities. VISUALIZED UPPER ABDOMEN: Normal. OTHER FINDINGS: None. IMPRESSION: Slight improvement in right lower lobe infiltrate
[2017-04-04] MEDS: Pantoprazole 40 mg EC Tab PO SCH (05:15)
[2017-04-04 10:48] LABS: ALKALINE PHOSPHATASE 69 U/L (38-133); ALT/SGPT 33 U/L (7-56); AST/SGOT 28 U/L (15-59); BILIRUBIN,TOTAL 0.3 mg/dL (0.2-1.3); BLOOD UREA NITROGEN 14 mg/dL (7-21); CARBON DIOXIDE 27 mmol/L (21-33); CHLORIDE 103 mmol/L (98-107); GFR AFRICAN-AMERICAN > 60; GLUCOSE,RANDOM 142 mg/dL (70-110); POTASSIUM 3.6 mmol/L (3.6-5.0); SODIUM 139 mmol/L (132-148)
--- NOTE | 2017-04-04 13:44 | CP.PCM.PN ---
Subjective - Date & Time of Evaluation Date of Evaluation: 04/04/17 Time of Evaluation: 10:00 - Subjective Subjective: NAD, appetite remains poor Objective - Vital Signs/Intake and Output Vital Signs (last 24 hours): Temp Pulse Resp BP Pulse Ox 98.3 F 83 20 163/66 H 96 04/04/17 08:01 04/04/17 08:01 04/04/17 08:01 04/04/17 10:39 04/04/17 08:01 Intake and Output: 04/04/17 04/04/17 06:59 18:59 Intake Total 1070 0 Output Total 700 700 Balance 370 -700 - Medications Medications: Current Medications Amlodipine Besylate (Norvasc) 5 mg PO DAILY [facility] Last Admin: 04/04/17 10:39 Dose: 5 mg Heparin Sodium (Porcine) (Heparin) 5,000 units SC Q12 [facility] PRN Reason: Protocol Last Admin: 04/04/17 10:37 Dose: 5,000 units Pantoprazole Sodium (Protonix Ec Tab) 40 mg PO 0600 [facility] Last Admin: 04/04/17 05:15 Dose: 40 mg Tamsulosin HCl (Flomax) 0.4 mg PO DAILY [facility] Last Admin: 04/04/17 10:36 Dose: 0.4 mg - Labs Labs: 04/03/17 08:20 04/04/17 10:33 PT 11.6 Seconds (9.9-11.8) 03/31/17 11:38 INR 1.07 (0.93-1.08) 03/31/17 11:38 APTT 27.2 Seconds (23.7-30.8) 03/31/17 11:38 - Constitutional Appears: Cachectic - Respiratory Exam Respiratory Exam: Clear to Ausculation Bilateral, NORMAL BREATHING PATTERN - Cardiovascular Exam Cardiovascular Exam: REGULAR RHYTHM - GI/Abdominal Exam GI & Abdominal Exam: Soft, Normal Bowel Sounds - Extremities Exam Extremities Exam: Normal Inspection - Neurological Exam Neurological Exam: Alert, Awake - Skin Skin Exam: Dry, Warm Assessment and Plan (1) Acute renal failure Status: Resolved (2) Hypertension Status: Chronic (3) Bladder outlet obstruction Status: Chronic (4) Renal cell carcinoma Status: Suspected (5) Hypokalemia Status: Resolved - Assessment and Plan (Free Text) Plan: PT/TCU RADHA bejarano to decide re: further mgmt of outlet obstruction and renal tumor
--- NOTE | 2017-04-04 15:56 | CON ---
HISTORY OF PRESENT ILLNESS: This is an 86-year-old man with a renal mass. The patient has no typical history, but says that he has been feeling weak and tired for the last couple of months; losing weight, he says, about 100 pounds' worth over the last possibly 6 months and slowly deteriorating, so he came to the hospital, was found to have a BUN of over 100 and the creatinine of 7.9. On hydration, this has gone down to BUN of 20 and a 0.7 creatinine. PHYSICAL EXAMINATION: SKIN: No petechiae and no bruise. HEENT: Shows temporal wasting. NODES: Nonpalpable in axillary, cervical, supraclavicular, inguinal regions. LUNGS: At present clear. He is able to lie flat in bed. HEART: S1, S2. No rub, gallops, or murmur. No vertebral tenderness. ABDOMEN: Shows no liver, no spleen. No tenderness. No mass. Bowel sounds are present. EXTREMITIES: No edema. OPTOMETRIST ASSISTANT: No focal finding. LABORATORY DATA: At this point, his BUN and creatinine have come done to 0.7 creatinine with a hemoglobin of 8.8. I believe the anemia is most likely due to the renal insufficiency over a period of time that should improved, now his creatinine is down to normal at 0.7. So, I will hold off on his Procrit and transfusions and observe him for now. In terms of the renal mass, I would not biopsy and I would not operate on it and seems to be an incidental finding as to why he went into a renal insufficiency and bilateral hydronephrosis. We are awaiting further evaluations by the Urology. For now, however, I would hold off on workup of the renal cell mass. Benjy Escobar MD
--- NOTE | 2017-04-04 22:41 | PN ---
DATE: 04/04/2017 SUBJECTIVE: The patient is seen lying in bed. He is awake, he is alert, he is comfortable. He reports being very weak. He reports nausea. He ate his breakfast. PHYSICAL EXAMINATION VITAL SIGNS: Blood pressure 163/66, heart rate 83, respiratory rate 20, temperature 98.3. HEENT: Normocephalic, atraumatic. NECK: Supple, no JVD. LUNGS: Bilateral equal air entry, no rhonchi. CARDIAC: S1, S2, regular rate and rhythm, no murmur, no rub. ABDOMEN: Obese, soft, nontender, bowel sounds present. EXTREMITIES: No lower extremity edema. INTAKE AND OUTPUT: 1070/700. LABORATORY DATA: Hemoglobin 9.2, hematocrit 27.7, platelets 320. Sodium 139, potassium 3.6, chloride 103, CO2 of 27, BUN 14, creatinine 0.7, glucose 142, calcium 8.0, albumin 3.1, corrected calcium 8.7. MEDICATIONS: List reviewed. ASSESSMENT: 1. Resolved acute kidney injury, obstructive uropathy/urinary retention. 2. Right renal mass, most likely renal cell cancer. 3. Hypokalemia, resolved. 4. Cachexia. 5. Malnutrition. 6. History of hypertension. PLAN 1. Discontinue IV fluids. 2. Push p.o. intake. 3. Continue Flomax. 4. Continue amlodipine. 5. Plan for right renal mass as per primary team and urology. Nel Eid MD
[2017-04-05 09:57] VITALS: RESP 18; TEMP 98.2; O2SAT 96
[2017-04-05 10:31] VITALS: BP 162/85; PULSE 81
--- NOTE | 2017-04-06 06:56 | DS ---
HOSPITAL COURSE: The patient is an 86-year-old male admitted through the Emergency Department on 03/31/2017 with acute bladder outlet obstruction due to an enlarged prostate. The patient was in acute renal failure due to the obstruction. He was seen in consultation by Urology Dr. Munoz who placed the Beck catheter with relief of the obstruction and improvement of the renal function. The patient was also seen by Nephrology Dr. Eid. He had an uneventful hospital course with resolution of his renal failure, and he is medically stable for discharge. There are no complaints of abdominal pain. No nausea, vomiting. No chest pain or shortness of breath. PHYSICAL EXAMINATION: VITAL SIGNS: Blood pressure 162/85, pulse 81, temperature 98.2, respiratory rate 18. LUNGS: Clear. HEART: Regular rate and rhythm. ABDOMEN: Soft and nontender. Bowel sounds are normoactive. GENITOURINARY: Indwelling Beck is intact. Urine is clear. EXTREMITIES: Without cyanosis, clubbing, or edema. There is bilateral severe muscle wasting and atrophy. NEUROLOGIC: The patient is awake and oriented x3 without focal, sensory, or motor deficits. SKIN: Warm and dry. IMPRESSION: 1. Acute bladder outlet obstruction secondary to benign prostatic hypertrophy, resolved. 2. Acute renal failure secondary to #1, improved. 3. Hypertension. 4. Cachexia, rule out occult malignancy. 5. Probable renal cell carcinoma. PLAN: The patient will be discharged to [facility] for subacute rehab in stable condition on the following medications; Flomax 0.4 mg daily, Norvasc 5 mg daily, and Protonix 40 mg daily. Activities as per the rehab facility. He will be maintained on a heart-healthy diet. He will follow up in my office post discharge in the rehab facility. JANAE Gil MD
== END 2017-04-05 15:38 | DRG 682 ==
LOC: ED 10:35 → ERH 15:39 → CCU 19:47 → 3RNO 04-01 15:05
PROVIDERS: ADMIT Internal Medicine; ATTEND Internal Medicine
PROC: 0T9B70Z Drainage of Bladder with Drainage Device, Via Natural or Artificial Opening (ICD-10-PCS; principal; 2017-04-01)
DX: N17.9 Acute kidney failure, unspecified (principal); J18.9 Pneumonia, unspecified organism; E46 Unspecified protein-calorie malnutrition; C64.1 Malignant neoplasm of right kidney, except renal pelvis; R64 Cachexia; I10 Essential (primary) hypertension; N13.8 Other obstructive and reflux uropathy; Z68.1 Body mass index [BMI] 19.9 or less, adult; N40.1 Benign prostatic hyperplasia with lower urinary tract symptoms; R33.8 Other retention of urine; N32.0 Bladder-neck obstruction; E83.42 Hypomagnesemia; E87.5 Hyperkalemia; D64.9 Anemia, unspecified; F03.90 Unspecified dementia, unspecified severity, without behavioral disturbance, psychotic disturbance, mood disturbance, and anxiety; N13.30 Unspecified hydronephrosis; R62.7 Adult failure to thrive; E87.6 Hypokalemia; K44.9 Diaphragmatic hernia without obstruction or gangrene; K29.70 Gastritis, unspecified, without bleeding; H26.9 Unspecified cataract; M48.07 Spinal stenosis, lumbosacral region; Z88.2 Allergy status to sulfonamides

== ENCOUNTER 2017-05-24 13:22 | Inpatient (IN) | payer MEDICARE, OTHER ==
[2017-05-24 13:22] VITALS: BMI 15.2
--- NOTE | 2017-05-24 13:40 | ED PDOC ---
Arrival/HPI - General Time Seen by Provider: 05/24/17 13:24 Historian: Patient - History of Present Illness Narrative History of Present Illness (Text): 05/24/17 13:39 A 86 year old male presents to the emergency department accompanied by family complaining of progressively worsening fatigue over the past 1-2 weeks. reports increased weight loss. Patient denies any pain or discomfort at this time. Patient denies any fever, chills, nausea, vomiting, abdominal pain, chest pain, shortness of breath or any other complaints. PMD: Dr. Sinclair Urologist: Dr. Vaughn Munoz Time/Duration: > week Symptom Course: Worsening Quality: Other Context: Home Past Medical History - Provider Review Nursing Documentation Reviewed: Yes - Cardiac Hx Pacemaker: No - Pulmonary Hx Respiratory Disorders: No - Neurological Hx Neurological Disorder: No - HEENT Hx Cataracts: Yes (b/l sched for sx on L eye end of july) - Renal Hx Renal Disorder: No - Endocrine/Metabolic Hx Endocrine Disorders: No - Hematological/Oncological Hx Blood Transfusions: No - Integumentary Hx Dermatological Disorder: No - Musculoskeletal/Rheumatological Hx Musculoskeletal Disorders: No - Gastrointestinal Hx Gastrointestinal Disorders: No - Genitourinary/Gynecological Hx Hematuria: Yes (1989) Hx Prostate Problems: Yes (had turp 1989) Other/Comment: pt denies current prostate problems denies ever taking flomax - Psychiatric Hx Substance Use: No - Surgical History Other/Comment: prostate surgery - Anesthesia Hx Anesthesia Reactions: No Hx Malignant Hyperthermia: No Family/Social History - Physician Review Nursing Documentation Reviewed: Yes Family/Social History: No Known Family HX Smoking Status: Never Smoked Hx Alcohol Use: Yes (OCCASIONAL RED WINE) Hx Substance Use: No Allergies/Home Meds Allergies/Adverse Reactions: Allergies Sulfa (Sulfonamide Antibiotics) Allergy (Verified 05/24/17 13:33) RASH Home Medications: Home Meds Medication Instructions Recorded Confirmed Dronabinol [Marinol] 5 mg PO DAILY 05/24/17 05/24/17 Nitrofurantoin Macrocrystals 100 mg PO BID 05/24/17 05/24/17 [Macrobid] Pantoprazole [Protonix EC Tab] 40 mg PO DAILY 05/24/17 05/24/17 Review of Systems - Physician Review All systems were reviewed & negative as marked: Yes - Review of Systems Constitutional: Fatigue, Weight Change. absent: Fevers, Night Sweats Respiratory: absent: SOB Cardiovascular: absent: Chest Pain Gastrointestinal: absent: Abdominal Pain, Nausea, Vomiting Physical Exam Vital Signs Reviewed: Yes Vital Signs Temp Pulse Resp BP Pulse Ox 05/24/17 13:45 97.3 F L 96 H 16 122/69 95 05/24/17 13:34 97 H 20 122/69 97 Temperature: Afebrile Blood Pressure: Normal Pulse: Tachycardic Respiratory Rate: Normal Appearance: Positive for: Cachectic Pain Distress: None Mental Status: Positive for: Alert and Oriented X 3 - Systems Exam Head: Present: Atraumatic, Normocephalic Pupils: Present: PERRL Extroacular Muscles: Present: EOMI Conjunctiva: Present: Normal Mouth: Present: Dry Neck: Present: Normal Range of Motion Respiratory/Chest: Present: Clear to Auscultation, Good Air Exchange. No: Respiratory Distress, Accessory Muscle Use Cardiovascular: Present: Regular Rate and Rhythm, Normal S1, S2. No: Murmurs Abdomen: Present: Normal Bowel Sounds. No: Tenderness, Distention, Peritoneal Signs Back: Present: Normal Inspection Upper Extremity: Present: Normal Inspection. No: Cyanosis, Edema Lower Extremity: Present: Normal Inspection. No: Edema Neurological: Present: GCS=15, CN II-XII Intact, Speech Normal Skin: Present: Warm, Dry, Normal Color, Other (skin tenting, sacral ulcer (see nursing documentation)). No: Rashes Psychiatric: Present: Alert, Oriented x 3, Normal Insight, Normal Concentration Medical Decision Making ED Course and Treatment: 05/24/17 13:39 Impression: A 86 year old male with increased fatigue and weight loss. Differential Diagnosis included but are not limited to: Dehydration rule out infectious ideology Plan: -- Chest xray -- EKG -- Labs -- Blood and Urine culture -- Urinalysis -- IV fluids -- Reassess and disposition Progress Notes: EKG shows NSR at 93 BPM with PVCs, nonspecific ST changes. Interpreted by me. Report Date : 05/24/2017 14:26:33 Procedure: Chest xray Dictator : Darwin Brand MD IMPRESSION: Interval improvement in aeration of the lungs compared to 2016. Underlying chronic interstitial lung disease bilaterally lower lobe predilection right greater than left. 05/24/17 14:51 Patient noted to have elevated BUN/Cr. Family and patient state they changed their primary care doctor to Dr. Claros. Case was discussed with Dr. Claros who states to please get Dr. Guy on geriatric consult. Consult order placed. IV hydration continued. - Lab Interpretations Lab Results: 05/24/17 14:08 05/24/17 14:08 Lab Results 05/24/17 14:08: Sodium 137, Chloride 98, Potassium 4.8, Carbon Dioxide 19 L, Anion Gap 25 H, BUN 131 H*, Creatinine 3.5 H, Est GFR ( Amer) 20, Est GFR (Non-Af Amer) 17, Random Glucose 142 H, Calcium 9.4, Phosphorus 7.5 H, Magnesium 3.0 H, Total Bilirubin 0.6, AST 28, ALT 21, Alkaline Phosphatase 112, Total Protein 8.5 H, Albumin 4.1, Globulin 4.4, Albumin/Globulin Ratio 0.9 L 05/24/17 14:08: pO2 37, VBG pH 7.27 L, VBG pCO2 43.0, VBG HCO3 19.7 L, VBG Total CO2 21.0 L, VBG O2 Sat (Calc) 70.5 H, VBG Base Excess -7.0 L, VBG Potassium 7.2 H*, Sodium 129.0 L, Chloride 100.0, Glucose 147 H, Lactate 2.2 H, FiO2 21.0, Venous Blood Potassium 7.2 H* 05/24/17 14:08: PT 11.4, INR 1.06, APTT 29.9 05/24/17 14:08: WBC 10.7, RBC 4.07, Hgb 12.5 L D, Hct 35.6 L, MCV 87.5, MCH 30.7 , MCHC 35.1, RDW 14.6 H, Plt Count 539 H, MPV 9.8, Gran % 79.7 H, Lymph % (Auto ) 9.5 L, Hitchcock % (Auto) 10.1 H, Eos % (Auto) 0.6 L, Baso % (Auto) 0.1, Gran # 8.50 H, Lymph # 1.0 L, Hitchcock # 1.1 H, Eos # 0.1, Baso # 0.01 - RAD Interpretation Radiology Orders: 05/24/17 13:39 CHEST PORTABLE [RAD] Stat - Medication Orders Current Medication Orders: Discontinued Medications Sodium Chloride (Sodium Chloride 0.9%) 1,000 mls @ 999 mls/hr IV .Q1H1M STA Stop: 05/24/17 14:41 Last Admin: 05/24/17 14:19 Dose: 999 mls/hr eMAR Start Stop Document 05/24/17 14:19 MD (Rec: 05/24/17 14:19 [facility] [id number] Intravenous Solution Start Date 05/24/17 Start Time 14:19 Sodium Chloride (Sodium Chloride 0.9%) 1,000 mls @ 999 mls/hr IV .Q1H1M STA Stop: 05/24/17 15:36 - Scribe Statement The provider has reviewed the documentation as recorded by the Almaibjordy Garland Provider Scribe Attestation: All medical record entries made by the Scribe were at my direction and personally dictated by me. I have reviewed the chart and agree that the record accurately reflects my personal performance of the history, physical exam, medical decision making, and the department course for this patient. I have also personally directed, reviewed, and agree with the discharge instructions and disposition. Disposition/Present on Arrival - Present on Arrival Any Indicators Present on Arrival: No History of DVT/PE: No History of Uncontrolled Diabetes: No Urinary Catheter: No History Surgical Site Infection Following: None - Disposition Have Diagnosis and Disposition been Completed?: Yes Diagnosis: Dehydration Disposition: HOSPITALIZED Disposition Time: 14:50 Patient Plan: Admission Condition: FAIR
[2017-05-24] MEDS ORDERED: Sodium Chloride 0.9% 1,000 ML IV STA ×3 (13:41→15:44)
[2017-05-24 14:15] LABS: BASO # 0.01 K/mm3 (0.0-2.0); BASO % 0.1 % (0.0-3.0); EOS # 0.1 (0.0-0.7); EOS % 0.6 % (1.5-5.0); GRAN # 8.5 (1.4-6.5); GRAN % 79.7 % (50.0-68.0); HEMATOCRIT 35.6 % (42.0-52.0); LYMPH % 9.5 % (22.0-35.0); MEAN CELL VOLUME 87.5 fl (80.0-105.0); MEAN CORPUSCULAR HEMOGLOBIN 30.7 pg (25.0-35.0); MEAN CORPUSCULAR HGB CONC 35.1 g/dl (31.0-37.0); MEAN PLATELET VOLUME 9.8 fl (7.0-11.0); MONO # 1.1 (0.1-0.6); MONO % 10.1 % (1.0-6.0); RED CELL DISTRIBUTION WIDTH 14.6 % (11.5-14.5); WHITE BLOOD COUNT 10.7 10^3/ul (4.5-11.0)
[2017-05-24 14:18] LABS: VENOUS BLOOD PH 7.27 (7.32-7.43)
[2017-05-24 14:26] LABS: INR 1.06 (0.93-1.08); PARTIAL THROMBOPLASTIN TIME 29.9 Seconds (23.7-30.8)
--- NOTE | 2017-05-24 14:27 | RAD ---
HISTORY: Sepsis Patient COMPARISON: 04/03/2017 and 07/10/2016 FINDINGS: LUNGS: Improved aeration of the lungs, persistent interstitial lung disease bilaterally right greater than left with a reticulonodular appearance. PLEURA: No significant pleural effusion identified, no pneumothorax apparent. CARDIOVASCULAR: No radiographic findings to suggest acute or significant cardiovascular disease. OSSEOUS STRUCTURES: No significant abnormalities. VISUALIZED UPPER ABDOMEN: Normal. OTHER FINDINGS: None. IMPRESSION: Interval improvement in aeration of the lungs compared to 04/03/2017. Underlying chronic interstitial lung disease bilaterally lower lobe predilection right greater than left.
[2017-05-24 14:30] LABS: BILIRUBIN,TOTAL 0.6 mg/dL (0.2-1.3); CALCIUM 9.4 mg/dL (8.4-10.5); PHOSPHOROUS 7.5 mg/dL (2.5-4.5); POTASSIUM 4.8 mmol/L (3.6-5.0)
[2017-05-24 14:31] LABS: TOTAL PROTEIN 8.5 g/dL (5.8-8.3)
[2017-05-24 14:32] LABS: ALB/GLOB RATIO 0.9 (1.1-1.8)
[2017-05-24] MEDS ORDERED: Pneumococcal 23-Valent Vaccine IM ONE (18:50)
[2017-05-24 20:01] LABS: VENOUS BLOOD GAS BASE EXCESS -4.1 mmol/L (0.0-2.0); VENOUS BLOOD PH 7.28 (7.32-7.43)
[2017-05-25] MEDS: Pantoprazole 40 mg EC Tab PO SCH (09:15)
--- NOTE | 2017-05-25 14:57 | CP.PCM.CON ---
History of Present Illness - History of Present Illness History of Present Illness: 86 yo male admitted for progressive weakness, weight loss, poor appetite, gait dysfunction. Seen in ED, elevated BUN/Creat. h/o ARF due to obstructive uropathy seen by Dr. René Munoz in past. Review of Systems - Constitutional Constitutional: Fatigue, Weight Loss, Weakness Past Patient History - Past Medical History & Family History Past Medical History?: Yes - Past Social History Smoking Status: Former Smoker - CARDIAC Hx Hypertension: Yes - PULMONARY Hx Respiratory Disorders: No - NEUROLOGICAL Hx Neurological Disorder: No - HEENT Hx Cataracts: Yes (b/l sched for sx on L eye end july) - RENAL Hx Chronic Kidney Disease: No - ENDOCRINE/METABOLIC Hx Endocrine Disorders: No - HEMATOLOGICAL/ONCOLOGICAL Hx Anemia: Yes Hx Cancer: Yes (probable renal cell CA) Other/Comment: small tumor r kidney - INTEGUMENTARY Other/Comment: right hip stage 2 1cm x 1cm open wound, redness to b/l ears st 1 , redness to right groin, skin discolorations b/l arms - MUSCULOSKELETAL/RHEUMATOLOGICAL Hx Falls: No - GASTROINTESTINAL Hx Gastrointestinal Disorders: Yes (weight loss poor appetite) - GENITOURINARY/GYNECOLOGICAL Hx Hematuria: Yes (1989) Hx Incontinence: Yes (urine and stool) Hx Prostate Problems: Yes (had turp 1989) Other/Comment: pt denies current prostate problems denies ever taking flomax - PSYCHIATRIC Hx Substance Use: No - SURGICAL HISTORY Other/Comment: prostate surgery, colon polyps - ANESTHESIA Hx Anesthesia Reactions: No Hx Malignant Hyperthermia: No Meds Allergies/Adverse Reactions: Allergies Allergy/AdvReac Type Severity Reaction Status Date / Time Sulfa (Sulfonamide Allergy RASH Verified 05/24/17 13:33 Antibiotics) - Medications Medications: Current Medications Acetaminophen (Tylenol 325mg Tab) 650 mg PO Q4H PRN PRN Reason: Fever >100.5 F Amlodipine Besylate (Norvasc) 5 mg PO DAILY [facility] Last Admin: 05/25/17 09:14 Dose: 5 mg Dronabinol (Marinol) 5 mg PO DAILY [facility] Last Admin: 05/25/17 09:15 Dose: 5 mg Ondansetron HCl (Zofran Inj) 4 mg IVP Q4H PRN PRN Reason: Nausea/Vomiting Pantoprazole Sodium (Protonix Ec Tab) 40 mg PO DAILY [facility] Last Admin: 05/25/17 09:15 Dose: 40 mg Tamsulosin HCl (Flomax) 0.4 mg PO PCB [facility] Last Admin: 05/25/17 09:15 Dose: 0.4 mg Physical Exam - Constitutional Appears: Cachectic, Chronically Ill - Head Exam Head Exam: ATRAUMATIC, NORMOCEPHALIC - Eye Exam Eye Exam: EOMI, PERRL - ENT Exam ENT Exam: Mucous Membranes Moist - Neck Exam Neck exam: Positive for: Normal Inspection - Respiratory Exam Respiratory Exam: Clear to Auscultation Bilateral, NORMAL BREATHING PATTERN - Cardiovascular Exam Cardiovascular Exam: REGULAR RHYTHM - GI/Abdominal Exam GI & Abdominal Exam: Normal Bowel Sounds, Soft - Exam Exam: Bladder Distension - Neurological Exam Neurological exam: Abnormal Gait, Alert, Oriented x3 - Skin Skin Exam: Dry, Warm Results - Vital Signs Recent Vital Signs: Last Vital Signs Temp 97.7 F 05/25/17 08:28 Pulse 72 05/25/17 09:14 Resp 20 05/25/17 08:28 BP 133/55 L 05/25/17 09:14 Pulse Ox 96 05/25/17 08:28 - Labs Result Diagrams: 05/24/17 14:08 05/24/17 14:08 Labs: Laboratory Results - last 24 hr 05/24/17 19:30 pO2 50 VBG pH 7.28 L VBG pCO2 49.0 VBG HCO3 23.0 VBG Total CO2 24.5 VBG O2 Sat (Calc) 85.2 H VBG Base Excess -4.1 L VBG Potassium 5.4 H Sodium 134.0 Chloride 102.0 Glucose 124 H Lactate 1.8 FiO2 21.0 Venous Blood Potassium 5.4 H Assessment & Plan (1) Dehydration Status: Acute (2) Bladder outlet obstruction Status: Suspected (3) Hypertension Status: Chronic (4) Renal cell carcinoma Status: Suspected (5) Acute renal failure Status: Acute - Assessment and Plan (Free Text) Plan: consult Dr. René Munoz, check bladder US, IV hydration, monitor lytes & renal funct - Date & Time Date: 05/25/17 Time: 13:30
[2017-05-25] MEDS ORDERED: cefTRIAXone 1 gm 1 GM/100 ML BAG IVPB STA (16:33)
[2017-05-25 16:59] LABS: URINE BILIRUBIN NEGATIVE (NEGATIVE); URINE BLOOD LARGE (NEGATIVE); URINE GLUCOSE (UA) NEGATIVE (NEGATIVE); URINE KETONE NEGATIVE (NEGATIVE); URINE LEUKOCYTE ESTERASE LARGE Leu/uL (NEGATIVE); URINE PROTEIN 100 mg/dL (<30 mg/dL); URINE UROBILINOGEN 0.2 E.U./dL (<1 E.U./dL)
[2017-05-25] MEDS: Bacitracin 500 Units/gm Oint Foilpak UD TOP SCH (17:00)
[2017-05-25 17:01] LABS: URINE APPEARANCE TURBID (CLEAR); URINE COLOR LIGHT YELLOW (YELLOW)
[2017-05-25 17:16] LABS: URINE BACTERIA MOD (NEG); URINE EPITHELIAL CELLS 0 - 2 /hpf (0-5); URINE RBC 25 - 30 /hpf (0-2); URINE WBC TNTC /hpf (0-6)
[2017-05-25] MEDS: Oxycodone/Acetaminophen 5/325 mg Tab PO PRN (17:57)
[2017-05-25] MEDS: Sodium Chloride 0.9% 1,000 ML IV SCH (18:33)
--- NOTE | 2017-05-25 19:55 | CARD ---
APPROVED REPORT EKG Measurement Heart [id number] <Conclusion> Sinus rhythm with frequent premature ventricular complexes Minimal voltage criteria for LVH, may be normal variant Nonspecific T wave abnormality Abnormal ECG
[2017-05-26] MEDS: Oxycodone/Acetaminophen 5/325 mg Tab PO PRN (00:33)
[2017-05-26] MEDS: Sodium Chloride 0.9% 1,000 ML IV SCH ×3 (03:45→23:04)
--- NOTE | 2017-05-26 06:05 | HP ---
CHIEF COMPLAINT: Fatigue, lethargy, no appetite. HISTORY OF PRESENT ILLNESS: Mr. Anjel Quinones is an 86-year-old patient of Dr. Griffin Guy. I took care of him in [facility], was discharged from [facility] a couple of weeks ago with the family, then called me that the patient is not feeling very well, very fatigued, tired, has altered mental status, and progressively worsening fatigue over the past one to two weeks. reports increased weight loss. The patient denies any pain or discomfort at this time. The patient denies any fever, chills, nausea, vomiting, abdominal pain, chest pain, shortness of breath, or diarrhea. PAST MEDICAL HISTORY: History of cataract surgery, hematuria, had TURP. FAMILY HISTORY: Father and mother noncontributory. HABITS: Never a smoker. Occasionally red wine. No substance abuse. ALLERGIES: THE PATIENT IS ALLERGIC WITH SULFA. HOME MEDICATIONS: Marinol, Macrobid, Protonix. REVIEW OF SYSTEMS: The patient is seen and examined on the bedside in the telemetry, feeling fatigued and tired. No nausea, vomiting or diarrhea. No hematuria or hematochezia. No swelling of the leg. No chest pain. No palpitation. No headache. No dizziness. PHYSICAL EXAMINATION: VITAL SIGNS: Temperature 97.8, pulse 54, blood pressure 130/63, and respiratory rate 19. HEENT: Head: Normocephalic, atraumatic. Eyes: PERRLA. Extraocular muscles are intact. Conjunctivae are clear. Nose patent. NECK: Supple. No carotid bruits, JVD, or thyromegaly. CHEST: Bilaterally symmetrical. HEART: S1 and S2 positive. LUNGS: Clear to auscultation. ABDOMEN: Soft. Bowel sounds positive. No organomegaly. EXTREMITIES: No edema. No cyanosis. NEUROLOGIC: The patient is awake and alert. Moving all four extremities. No focal deficits. LABORATORY DATA: White blood cells 7.7, hemoglobin 12.5, hematocrit 35.6, platelets 539. Sodium 137, potassium 4.8, BUN 131, creatinine 3.5, random glucose 142. Venous potassium was 7.4, repeat is 5.4. ASSESSMENT AND PLAN: Mr. Anjel Quinones is an 86-year-old male with anemia, dehydration, renal insufficiency, hyperglycemia, hyperphosphatemia, hypermagnesemia, proteinuria, hematuria, urinary tract infection, seen by Dr. 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 The patient has bladder outlet obstruction, hypertension, renal cell carcinoma, [id number] renal insufficiency. The patient's urologist is Dr. Munoz. IV hydration and we will do bladder ultrasound, monitor the lytes. We will continue present treatment and repeat labs. We will follow up. Chandrika Claros MD
[2017-05-26 07:07] LABS: BASO # 0.02 K/mm3 (0.0-2.0); BASO % 0.2 % (0.0-3.0); EOS # 0.2 (0.0-0.7); EOS % 2.6 % (1.5-5.0); GRAN # 6.89 (1.4-6.5); GRAN % 75.1 % (50.0-68.0); HEMATOCRIT 27.7 % (42.0-52.0); LYMPH # 1.2 (1.2-3.4); LYMPH % 13.1 % (22.0-35.0); MEAN CELL VOLUME 88.8 fl (80.0-105.0); MEAN CORPUSCULAR HEMOGLOBIN 29.2 pg (25.0-35.0); MEAN CORPUSCULAR HGB CONC 32.9 g/dl (31.0-37.0); MEAN PLATELET VOLUME 9.5 fl (7.0-11.0); MONO # 0.8 (0.1-0.6); RED CELL DISTRIBUTION WIDTH 14.8 % (11.5-14.5); WHITE BLOOD COUNT 9.2 10^3/ul (4.5-11.0)
[2017-05-26 07:24] LABS: ALB/GLOB RATIO 0.9 (1.1-1.8); ALKALINE PHOSPHATASE 74 U/L (38-126); ALT/SGPT 22 U/L (7-56); AST/SGOT 20 U/L (17-59); BILIRUBIN,TOTAL 0.3 mg/dL (0.2-1.3); BLOOD UREA NITROGEN 63 mg/dL (7-21); CALCIUM 8.1 mg/dL (8.4-10.5); CARBON DIOXIDE 20 mmol/L (21-33); CHLORIDE 111 mmol/L (98-107); CHOLESTEROL 135 mg/dL (130-200); GFR AFRICAN-AMERICAN > 60; GLUCOSE,RANDOM 97 mg/dL (70-110); POTASSIUM 4.7 mmol/L (3.6-5.0); SODIUM 140 mmol/L (132-148); TOTAL PROTEIN 6.1 g/dL (5.8-8.3)
[2017-05-26 07:27] LABS: IRON 40 ug/dL (45-180)
[2017-05-26] MEDS: Pantoprazole 40 mg EC Tab PO SCH (09:57)
[2017-05-26] MEDS: Bacitracin 500 Units/gm Oint Foilpak UD TOP SCH ×3 (09:57→17:44)
--- NOTE | 2017-05-26 12:23 | CP.PCM.PN ---
Subjective - Date & Time of Evaluation Date of Evaluation: 05/26/17 Time of Evaluation: 12:00 - Subjective Subjective: NAD, denies chest pain, no SOB Objective - Vital Signs/Intake and Output Vital Signs (last 24 hours): Temp Pulse Resp BP Pulse Ox 97.5 F L 74 20 110/59 L 96 05/26/17 07:36 05/26/17 09:57 05/26/17 07:36 05/26/17 09:57 05/26/17 07:36 Intake and Output: 05/26/17 05/26/17 06:59 18:59 Intake Total 120 Output Total 1425 Balance -1305 - Medications Medications: Current Medications Acetaminophen (Tylenol 325mg Tab) 650 mg PO Q4H PRN PRN Reason: Fever >100.5 F Amlodipine Besylate (Norvasc) 5 mg PO DAILY [facility] Last Admin: 05/26/17 09:57 Dose: 5 mg Bacitracin (Bacitracin) 1 ea TOP TID [facility] Last Admin: 05/26/17 09:57 Dose: 1 ea Dronabinol (Marinol) 5 mg PO DAILY [facility] Last Admin: 05/26/17 09:56 Dose: 5 mg Sodium Chloride (Sodium Chloride 0.9%) 1,000 mls @ 100 mls/hr IV .Q10H [facility] Last Admin: 05/26/17 03:45 Dose: 100 mls/hr Ondansetron HCl (Zofran Inj) 4 mg IVP Q4H PRN PRN Reason: Nausea/Vomiting Oxycodone/Acetaminophen (Percocet 5/325 Mg Tab) 1 tab PO Q6H PRN PRN Reason: Pain, moderate (4-7) Stop: 05/28/17 16:30 Last Admin: 05/26/17 00:33 Dose: 1 tab Pantoprazole Sodium (Protonix Ec Tab) 40 mg PO DAILY [facility] Last Admin: 05/26/17 09:57 Dose: 40 mg Tamsulosin HCl (Flomax) 0.4 mg PO PCB [facility] Last Admin: 05/26/17 09:57 Dose: 0.4 mg - Labs Labs: 05/26/17 06:40 05/26/17 06:40 PT 11.4 Seconds (9.9-11.8) 05/24/17 14:08 INR 1.06 (0.93-1.08) 05/24/17 14:08 APTT 29.9 Seconds (23.7-30.8) 05/24/17 14:08 - Respiratory Exam Respiratory Exam: Clear to Ausculation Bilateral, NORMAL BREATHING PATTERN - Cardiovascular Exam Cardiovascular Exam: REGULAR RHYTHM - GI/Abdominal Exam GI & Abdominal Exam: Soft, Normal Bowel Sounds - Exam Additional comments: indwelling veloz cath intact, urine clear - Extremities Exam Extremities Exam: Normal Inspection - Neurological Exam Neurological Exam: Alert, Awake - Skin Skin Exam: Dry, Warm Assessment and Plan (1) Dehydration Status: Acute (2) Bladder outlet obstruction Status: Suspected (3) Hypertension Status: Chronic (4) Renal cell carcinoma Status: Suspected (5) Acute renal failure Status: Resolved - Assessment and Plan (Free Text) Plan: renal funct improving, will defer decision re: further work-up for occult malignancy to Dr. Claros/family
[2017-05-26 12:32] LABS: FOLATE 12.1 ng/mL
--- NOTE | 2017-05-26 13:48 | PCM.URO ---
Urology Progress Note - Subjective Abdominal Pain: Yes - Objective Lab Studies: Reviewed (incontinennce3 /overflow will discuss plans // full note to be dictated) Lab Results Last 24 Hours: Laboratory Results - last 24 hr 05/25/17 05/26/17 05/26/17 16:30 06:40 06:40 WBC RBC Hgb Hct MCV MCH MCHC RDW Plt Count MPV Gran % Lymph % (Auto) Carbon % (Auto) Eos % (Auto) Baso % (Auto) Gran # Lymph # Carbon # Eos # Baso # Sodium 140 Potassium 4.7 Chloride 111 H Carbon Dioxide 20 L Anion Gap 14 BUN 63 H Creatinine 1.3 Est GFR ( Amer) > 60 Est GFR (Non-Af Amer) 52 Random Glucose 97 Hemoglobin A1c Calcium 8.1 L Iron 40 L TIBC 190 L % Saturation 21 Total Bilirubin 0.3 AST 20 ALT 22 Alkaline Phosphatase 74 Total Protein 6.1 Albumin 2.9 L Globulin 3.1 Albumin/Globulin Ratio 0.9 L Triglycerides 136 Cholesterol 135 LDL Cholesterol Direct 94 HDL Cholesterol 17 L Vitamin B12 885 Folate 12.1 TSH 3rd Generation Urine Color Light yellow Urine Appearance Turbid Urine pH 7.0 Ur Specific [place] 1.015 Urine Protein 100 H Urine Glucose (UA) Negative Urine Ketones Negative Urine Blood Large H Urine Nitrate Negative Urine Bilirubin Negative Urine Urobilinogen 0.2 Ur Leukocyte Esterase Large H Urine RBC 25 - 30 Urine WBC Tntc Ur Epithelial Cells 0 - 2 Urine Bacteria Mod 05/26/17 05/26/17 05/26/17 06:40 06:40 06:40 WBC 9.2 RBC 3.12 L Hgb 9.1 L D Hct 27.7 L MCV 88.8 MCH 29.2 MCHC 32.9 RDW 14.8 H Plt Count 376 MPV 9.5 Gran % 75.1 H Lymph % (Auto) 13.1 L Carbon % (Auto) 9.0 H Eos % (Auto) 2.6 Baso % (Auto) 0.2 Gran # 6.89 H Lymph # 1.2 Carbon # 0.8 H Eos # 0.2 Baso # 0.02 Sodium Potassium Chloride Carbon Dioxide Anion Gap BUN Creatinine Est GFR ( Amer) Est GFR (Non-Af Amer) Random Glucose Hemoglobin A1c 6.1 Calcium Iron TIBC % Saturation Total Bilirubin AST ALT Alkaline Phosphatase Total Protein Albumin Globulin Albumin/Globulin Ratio Triglycerides Cholesterol LDL Cholesterol Direct HDL Cholesterol Vitamin B12 Folate TSH 3rd Generation 2.09 Urine Color Urine Appearance Urine pH Ur Specific [place] Urine Protein Urine Glucose (UA) Urine Ketones Urine Blood Urine Nitrate Urine Bilirubin Urine Urobilinogen Ur Leukocyte Esterase Urine RBC Urine WBC Ur Epithelial Cells Urine Bacteria Intake & Output: Intake & Output 05/25/17 05/26/17 05/26/17 18:59 06:59 18:59 Intake Total 1300 120 Output Total 1425 Balance 1300 -1305 Intake: Oral 1300 120 Output: Urine 1425 Urethral (Beck) 1425 Other: # Bowel Movements 2 0 Vital Signs: Vital Signs - 24 hr 05/25/17 05/26/17 05/26/17 16:36 07:36 09:57 Temperature 97.8 F 97.5 F L Pulse Rate 84 74 74 Respiratory 19 20 Rate Blood Pressure 131/63 110/59 L 110/59 L O2 Sat by Pulse 97 96 Oximetry
--- NOTE | 2017-05-27 06:08 | CON ---
UROLOGY CONSULTATION DATE: REASON FOR CONSULTATION: Urinary retention and urinary incontinence. HISTORY OF PRESENT ILLNESS: What actually will disturb you on the patient more is 86 years old. He is a very pleasant gentleman. He has a renal mass that we are not treating. He has been seeing by me and another urologist. We have discussed options with the patient and his . Over the last week or so, I have been following the patient as an outpatient and have been asking him to come to the office. He is not feeling up to it. He asked for a voiding trial a couple of weeks back. I pulled the Beck catheter out, have been talking to his , I know he is in retention, comes in today and he is again in retention. She states it is unmanageable for her. See the plans listed below for various options. PAST MEDICAL AND SURGICAL HISTORY: As listed on the chart. Patient is of Dr. Griffin Guy. SOCIAL HISTORY: He is for years and years. REVIEW OF SYSTEMS: As listed above, otherwise noncontributory. PHYSICAL EXAMINATION: GENERAL: He is remarkably young in appearance, much younger than stated age. VITAL SIGNS: Noted. ABDOMEN: At this point, not grossly distended. : There is a Beck catheter. Blood in the urine is noted. See the bladder scan, see the previous notes. DIAGNOSES: Urinary retention, voiding dysfunction, and overflow urinary incontinence. PLAN: As follows: I discussed with the patient's many options. He does not like the cath in his penis and he is greatly disturbed with that. I discussed the options with the patient; intermittent catheterization is one possibility. He does not seem to be amenable to that. Trying to do any kind of prostatic surgery may be limited. I did discuss the possibility that he might agree with thermal therapy and I did discuss that specifically the success rate was extremely limited, 50% or less in his given setting, but it does have a role that he does not require anesthesia unlike. Another very good option I would think is, even with his medical and surgical history, to offer the patient an insertion of a cystostomy tube. This could be done without too much anesthesia and too much requirement and too much risk; although, bowel perforation is certainly a risk in this setting, but after discussing all those options, perhaps the patient has to consider different options. Maintenance of the Beck catheter via the urethra in a standard fashion would be one very good option, but the patient is very uncomfortable with this. For now we are going with as follows: 1. Maintain the Beck catheter. 2. Irrigate the Bcek catheter. 3. Consider cystostomy tube and then consider other options including emigrate. Further plans will follow depending on what we find clinically. Risks, benefits, and alternatives will be discussed further. I have got a chance to speak to the patient and his . Blaine Munoz MD
[2017-05-27 06:47] LABS: HEMATOCRIT 25.4 % (42.0-52.0); MEAN CELL VOLUME 89.1 fl (80.0-105.0); MEAN CORPUSCULAR HEMOGLOBIN 29.1 pg (25.0-35.0); MEAN CORPUSCULAR HGB CONC 32.7 g/dl (31.0-37.0); MEAN PLATELET VOLUME 9.5 fl (7.0-11.0); RED CELL DISTRIBUTION WIDTH 14.9 % (11.5-14.5); WHITE BLOOD COUNT 10.1 10^3/ul (4.5-11.0)
[2017-05-27 07:02] LABS: BLOOD UREA NITROGEN 42 mg/dL (7-21); CALCIUM 7.7 mg/dL (8.4-10.5); CARBON DIOXIDE 22 mmol/L (21-33); CHLORIDE 108 mmol/L (98-107); GFR AFRICAN-AMERICAN > 60; GLUCOSE,RANDOM 96 mg/dL (70-110); POTASSIUM 4.5 mmol/L (3.6-5.0); SODIUM 138 mmol/L (132-148)
--- NOTE | 2017-05-27 09:05 | PN ---
DATE: 05/26/2017 SUBJECTIVE: The patient is an 86-year-old male. The patient was seen and examined on the bedside, looking comfortable. No nausea, vomiting, or diarrhea. Feeling fatigue and tired. No headache. No dizziness. No chest pain. No palpitation. No fever. No chills. PHYSICAL EXAMINATION: VITAL SIGNS: Temperature 97.8, pulse 77, blood pressure 120/80 , and respiratory rate 19. HEENT: Head is normocephalic and atraumatic. Eyes: PERRLA. Extraocular muscles intact. Conjunctivae clear. Nose is patent. Mucous membranes are moist. NECK: Supple. No carotid bruits, JVD, or thyromegaly. CHEST: Bilaterally symmetrical. HEART: S1 and S2 positive. LUNGS: Clear to auscultation. ABDOMEN: Soft. Bowel sounds positive. No organomegaly. EXTREMITIES: No edema. No cyanosis. NEUROLOGIC: The patient is awake and alert. Moving all four extremities. No focal deficits. MEDICATIONS: Bacitracin, Flomax, Marinol, Norvasc, Percocet, Protonix, NS, Tylenol, and Zofran. LABORATORY DATA: White blood cell 9.2, hemoglobin 9.1, hematocrit 27.7, and platelets 376. Sodium 140, potassium 4.7, BUN 53, creatinine 1.3, on admission BUN was 131, creatinine was 3.5, and calcium 8.1. Iron for TIBC is 190. ASSESSMENT AND PLAN: Mr. Saenz is an 86-year-old male with anemia, came with dehydration, getting IV fluids, getting better, renal insufficiency is improving, hypocalcemia, iron deficiency, proteinuria, hematuria, UTI, and seen by Dr. Blaine Munoz, the patient's urologist. The patient has incontinency and overflow, getting handled by Dr. Munoz, seen by Dr. 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 The patient is feeling very fatigue and tired. We will do physical therapy, status post transurethral resection of the prostate. The patient is getting IV hydration, out of bed, physical therapy, gastrointestinal and deep venous thrombosis prophylaxis, and repeat labs. Chandrika Claros MD [facility]
[2017-05-27] MEDS: Pantoprazole 40 mg EC Tab PO SCH (09:39)
[2017-05-27] MEDS: Bacitracin 500 Units/gm Oint Foilpak UD TOP SCH ×3 (09:40→17:31)
[2017-05-27] MEDS ORDERED: Meropenem 1g/NS 100mL IVPB 1 GM/100 ML PIGGYBACK IVPB SCH (10:00)
[2017-05-27] MEDS: Sodium Chloride 0.9% 1,000 ML IV SCH (10:56)
--- NOTE | 2017-05-27 12:04 | CP.PCM.PN ---
Subjective - Date & Time of Evaluation Date of Evaluation: 05/27/17 Time of Evaluation: 09:30 - Subjective Subjective: NAD, denies SOB, no chest pain Objective - Vital Signs/Intake and Output Vital Signs (last 24 hours): Temp Pulse Resp BP Pulse Ox 98.4 F 79 20 115/66 95 05/27/17 08:05 05/27/17 08:05 05/27/17 08:05 05/27/17 09:39 05/27/17 08:05 Intake and Output: 05/27/17 05/27/17 06:59 18:59 Intake Total 480 Output Total 1200 Balance -720 - Medications Medications: Current Medications Acetaminophen (Tylenol 325mg Tab) 650 mg PO Q4H PRN PRN Reason: Fever >100.5 F Amlodipine Besylate (Norvasc) 5 mg PO DAILY [facility] Last Admin: 05/27/17 09:39 Dose: 5 mg Bacitracin (Bacitracin) 1 ea TOP TID [facility] Last Admin: 05/27/17 09:40 Dose: Not Given Dronabinol (Marinol) 5 mg PO DAILY [facility] Last Admin: 05/27/17 09:39 Dose: 5 mg Sodium Chloride (Sodium Chloride 0.9%) 1,000 mls @ 100 mls/hr IV .Q10H [facility] Last Admin: 05/27/17 10:56 Dose: 100 mls/hr Ondansetron HCl (Zofran Inj) 4 mg IVP Q4H PRN PRN Reason: Nausea/Vomiting Oxycodone/Acetaminophen (Percocet 5/325 Mg Tab) 1 tab PO Q6H PRN PRN Reason: Pain, moderate (4-7) Stop: 05/28/17 16:30 Last Admin: 05/26/17 00:33 Dose: 1 tab Pantoprazole Sodium (Protonix Ec Tab) 40 mg PO DAILY [facility] Last Admin: 05/27/17 09:39 Dose: 40 mg Tamsulosin HCl (Flomax) 0.4 mg PO PCB [facility] Last Admin: 05/27/17 09:39 Dose: 0.4 mg - Labs Labs: 05/27/17 06:20 05/27/17 06:20 PT 11.4 Seconds (9.9-11.8) 05/24/17 14:08 INR 1.06 (0.93-1.08) 05/24/17 14:08 APTT 29.9 Seconds (23.7-30.8) 05/24/17 14:08 - Constitutional Appears: Cachectic, Chronically Ill - Respiratory Exam Respiratory Exam: Clear to Ausculation Bilateral, NORMAL BREATHING PATTERN - Cardiovascular Exam Cardiovascular Exam: REGULAR RHYTHM - GI/Abdominal Exam GI & Abdominal Exam: Soft, Normal Bowel Sounds - Neurological Exam Neurological Exam: Alert, Awake - Skin Skin Exam: Dry, Warm Assessment and Plan (1) Dehydration Status: Resolved (2) Bladder outlet obstruction Status: Resolved (3) Hypertension Status: Chronic (4) Renal cell carcinoma Status: Suspected - Assessment and Plan (Free Text) Plan: Physical therapy, social work for discharge planning, work-up for occult malignancy/cachexia/weight loss per family/PMD
[2017-05-27] MEDS ORDERED: cefTRIAXone 1 gm 1 GM/100 ML BAG IVPB SCH (17:14)
[2017-05-27 17:33] VITALS: BP 130/59; PULSE 71; RESP 18; TEMP 98; O2SAT 98
--- NOTE | 2017-05-27 21:09 | CON ---
DATE: 05/27/2017 The patient seen in room 362, bed #1. CHIEF COMPLAINT: Urinary incontinence x1 day duration. HISTORY OF PRESENT ILLNESS: An 86-year-old male with history of cataract, which is bilateral; history of renal cell carcinoma; history of colonic polyps; arthritis; and hypertension who was admitted with a urinary retention and the patient had a Beck placed in. The urine cultures were done are positive. Infectious Disease consultation requested. REVIEW OF SYSTEMS: Reveals the patient has no chest pain, shortness of breath, or cough. No hemoptysis. No fever and chills. He states he came in urinary incontinence. PAST MEDICAL HISTORY: Significant for bilateral cataracts, hypertension, renal cell carcinoma, colonic polyps, and arthritis. PAST SURGICAL HISTORY: Significant for TURP. ALLERGIES: The patient is allergic to sulfa. MEDICATIONS: Medications are listed. PHYSICAL EXAMINATION: GENERAL: The patient is seen in bed appearing chronically ill, debilitated, and cachectic. VITAL SIGNS: Temperature of 97, blood pressure is 115/60, respiratory rate of 18, heart rate of 77. HEENT: Unremarkable. NECK: Supple. LUNGS: Decreased breath sounds. HEART: Normal S1, S2. ABDOMEN: Soft and nontender. LABORATORY EXAMINATION: Reveals a white count of 10, hemoglobin of 12, platelets of 539. Coagulation is noted. Chemistries reveals a BUN of 63, creatinine of 1.3. Urinalysis reveals the patient has too numerous to count WBCs, moderate bacteria, large leukocyte esterase and 100 protein, large blood. Blood cultures are no growth. Urine cultures, sensitive Proteus mirabilis. The patient had a CT scan of the abdomen results are pending. ASSESSMENT/PLAN An 86-year-old male with history of bilateral cataracts, hypertension, renal cell carcinoma, colonic polyps, and arthritis, admitted with cystitis with this pansensitive Proteus mirabilis and waned with acute kidney injury. Creatinine was up to 3.5. We will treat the patient with ceftriaxone a gram q. 24 hours and may be we will switch to p.o. antibiotics and Urology on the consultation, Dr. Munoz's note is reviewed. We Will follow with you. Eder Torres MD
--- NOTE | 2017-05-28 01:41 | PN ---
DATE: SUBJECTIVE: The patient seen and examined on the bedside. Having dinner, looking comfortable. No nausea, vomiting or diarrhea. No hematuria or hematochezia. No swelling of the leg. No chest pain. No palpitation. Feeling fatigue and tired. No fever. No chills. PHYSICAL EXAMINATION: VITAL SIGNS: Temperature 98, pulse 71, blood pressure 130/59 and respiratory rate 18. HEENT: Head: Normocephalic and atraumatic. Eyes: PERRLA. Extraocular muscles are intact. Conjunctivae are clear. Nose patent. Mucous membrane moist. NECK: Supple. No carotid bruits. No JVD or thyromegaly. CHEST: Bilaterally symmetrical. HEART: S1 and S2 positive. LUNGS: Clear to auscultation. ABDOMEN: Soft. Bowel sounds positive. No organomegaly. EXTREMITIES: No edema. No cyanosis. NEUROLOGIC: The patient is awake and alert. Moving all four extremities. No focal deficits. MEDICATIONS: Bacitracin, Flomax, Marinol, amlodipine, Percocet, Protonix, Rocephin, NS, Tylenol and Zofran. LABORATORY DATA: White blood cell 10.1, hemoglobin 8.3, hematocrit 25.4, platelets 359. Sodium 138, potassium 4.5, BUN 42, creatinine 1, calcium 7.7. ASSESSMENT AND PLAN: Mr. Anjel Quinones is an 86-year-old male with hyperchloremia improving, increased BUN improving, dehydration improving, hypocalcemia, iron deficiency anemia, proteinuria, hematuria, urinary tract infection. Seen by Dr. Torres, Infectious Disease. The patient has history of bilateral cataract surgery, hypertension, renal cell carcinoma, colonic polyps, arthritis, had cystitis with pansensitive Proteus mirabilis and waned with acute kidney injury. The patient was started on ceftriaxone for 24 hours and after that, he will be switched to p.o. antibiotics. Urologist is on the case. Review urologist and Dr. Torres's notes. Went for CAT scan of the abdomen and pelvis. The patient has bladder outlet obstruction. Ordered physical therapy. Workup for malignancy/cachexia, weight loss as per family. We will call Gastroenterology consult also. Review Dr. Guy's notes. Dr. Munoz knows this patient very well, was trying to solve the problem as outpatient about the patient's renal mass and options have been discussed with the patient and his and now, said he is manageable by her at home. Now, urologist suggested to maintain Beck catheter, irrigate the Beck catheter, consider cystoscopy tube and then consider other options including Emigrate. Risks, benefits and alternatives explained to the patient. Dr. Munoz spoke to the patient's also. The patient does not like the catheter in his penis, he is greatly disturbed with that. Dr. Munoz gave option of intermittent catheterization. He does not seem to be amendable to that, time to see any kind of prostate surgery may be limited. Dr. Munoz offered thermal therapy. Option will be that a cystotomy tube. This could be done without too much anesthesia and too much requirements and too much risk. Also bowel perforation is certainly a risk to this setting, but after discussing all these options, perhaps the patient has to consider different options, but we are not clear, they are still working on that. Gastrointestinal and deep vein thrombosis prophylaxis. Repeat labs. We will follow up. Chandrika Claros MD
--- NOTE | 2017-05-28 03:15 | DS ---
CHIEF COMPLAINT: Fatigue, tired. HISTORY OF PRESENT ILLNESS: Mr. Anjel Quinones is an 86-year-old male, was seen by me in [facility] when he was getting rehab, discharged from [facility] with his and son. Now, called me day before admission that she cannot take care of him, she is very sick. Then, the patient came to the Emergency Room, losing weight, feeling fatigued and tired. The patient denies any discomfort. We admitted the patient, did CAT scan of the abdomen and pelvis, results are pending, echocardiography, seen by Dr. Torres, Infectious Disease for UTI, Dr. Blaine Munoz, Urologist. The patient is still getting antibiotics, need good physical therapy, transferred to TCU for continuity of care and good physical therapy and occupational therapy. PAST MEDICAL HISTORY: Cataract surgery, hematuria, had TURP. FAMILY HISTORY: Father and mother noncontributory. HABITS: Never smoked. Occasionally red wine. No substance abuse. ALLERGIES: THE PATIENT IS ALLERGIC WITH SULFA. HOME MEDICATIONS: Reviewed by me. REVIEW OF SYSTEMS: The patient was seen and examined on the bedside during dinner, looks comfortable. No nausea, vomiting or diarrhea. No hematuria or hematochezia. No swelling of the leg. I reviewed Dr. Blaine Munoz's notes. The patient has renal mass. Diagnosis is still pending, consult with Dr. Sony Watts, we will work on that. For more detail, see my progress notes of 05/27/2017. Chandrika Claros MD [facility]
--- NOTE | 2017-05-28 10:12 | CT ---
PROCEDURE: CT Abdomen and Pelvis without intravenous contrast HISTORY: weight loss COMPARISON: 03/31/2017 TECHNIQUE: Without contrast.. Contrast Dose: Radiation dose: Total exam DLP = 205 mGy-cm. This CT exam was performed using one or more of the following dose reduction techniques: Automated exposure control, adjustment of the mA and/or kV according to patient size, and/or use of iterative reconstruction technique. FINDINGS: LOWER THORAX: Patchy nodular infiltrates are seen in both lung bases as well as right middle lobe and lingular segment of the left upper lobe. Similar findings were seen on the prior exam LIVER: Unremarkable. No gross lesion or ductal dilatation. GALLBLADDER AND BILE DUCTS: Unremarkable. PANCREAS: Unremarkable. No gross lesion or ductal dilatation. SPLEEN: Unremarkable. ADRENALS: Unremarkable. No mass. KIDNEYS AND URETERS: Unremarkable. No hydronephrosis. No solid mass. VASCULATURE: Unremarkable. No aortic aneurysm. BOWEL: There is moderate amount a constipation APPENDIX: Unremarkable. Normal appendix. PERITONEUM: Unremarkable. No free fluid. No free air. LYMPH NODES: Unremarkable. No enlarged lymph nodes. BLADDER: There is a Beck catheter in place. On the prior study the urinary bladder was grossly distended. It is decompressed on the current study. REPRODUCTIVE: Unremarkable. BONES: No acute fracture. OTHER FINDINGS: None. IMPRESSION: Patchy and nodular infiltrates of both lung bases. No acute findings
--- NOTE | 2017-05-28 14:55 | US ---
PROCEDURE: HISTORY: renal failure r/o obstruction COMPARISON: None TECHNIQUE: Transabdominal ultrasound scanning of the bladder performed FINDINGS: A Beck catheter is noted within the bladder. The prevoid urine volume is 382 mL. Pre void was filling via IV and clamping via Beck -per technologist's notes. The postvoid urine volume is 76 mL Neither ureteral jet noted. No bladder wall thickening. No other intraluminal masses the size a Beck catheter noted IMPRESSION: Intraluminal Beck catheter with pre and postvoid urine volumes as above. No intraluminal bladder masses or bladder wall thickening. No ureteral jets noted. Comments: Preliminary report provided by [facility] -in agreement
== END 2017-05-27 20:40 | DRG 683 ==
LOC: ED 13:22 → ERH 14:51 → 3RNO 16:04
PROVIDERS: ADMIT Internal Medicine; ATTEND Internal Medicine
DX: N17.9 Acute kidney failure, unspecified (principal); C64.9 Malignant neoplasm of unspecified kidney, except renal pelvis; J84.9 Interstitial pulmonary disease, unspecified; R64 Cachexia; N30.90 Cystitis, unspecified without hematuria; B96.4 Proteus (mirabilis) (morganii) as the cause of diseases classified elsewhere; E87.8 Other disorders of electrolyte and fluid balance, not elsewhere classified; E83.41 Hypermagnesemia; I12.9 Hypertensive chronic kidney disease with stage 1 through stage 4 chronic kidney disease, or unspecified chronic kidney disease; E86.0 Dehydration; E83.39 Other disorders of phosphorus metabolism; N32.0 Bladder-neck obstruction; E83.51 Hypocalcemia; D50.9 Iron deficiency anemia, unspecified; N18.9 Chronic kidney disease, unspecified; R32 Unspecified urinary incontinence; Z85.528 Personal history of other malignant neoplasm of kidney; Z86.010 Personal history of colon polyps; Z87.891 Personal history of nicotine dependence; Z90.79 Acquired absence of other genital organ(s); Z88.2 Allergy status to sulfonamides; R40.2412 Glasgow coma scale score 13-15, at arrival to emergency department; R80.9 Proteinuria, unspecified; Z98.42 Cataract extraction status, left eye; Z98.41 Cataract extraction status, right eye; M19.90 Unspecified osteoarthritis, unspecified site

== ENCOUNTER 2017-05-27 20:40 | Inpatient (IN) | payer OTHER ==
[2017-05-27] MEDS: Oxycodone/Acetaminophen 5/325 mg Tab PO PRN (23:56)
[2017-05-27] MEDS: Sodium Chloride 0.9% 1,000 ML IV SCH (23:58)
[2017-05-28 01:31] VITALS: BMI 18.2
[2017-05-28] MEDS: Oxycodone/Acetaminophen 5/325 mg Tab PO PRN ×2 (05:52→21:37)
[2017-05-28] MEDS: Pantoprazole 40 mg EC Tab PO SCH (05:52)
[2017-05-28 07:23] LABS: HEMATOCRIT 24.7 % (42.0-52.0); MEAN CELL VOLUME 89.5 fl (80.0-105.0); MEAN CORPUSCULAR HEMOGLOBIN 30.4 pg (25.0-35.0); RED CELL DISTRIBUTION WIDTH 14.9 % (11.5-14.5); WHITE BLOOD COUNT 9.6 10^3/ul (4.5-11.0)
[2017-05-28] MEDS: Bacitracin 500 Units/gm Oint Foilpak UD TOP SCH ×3 (10:11→17:14)
[2017-05-28] MEDS: Sodium Chloride 0.9% 1,000 ML IV SCH ×2 (10:14→21:35)
[2017-05-28] MEDS: cefTRIAXone 1 gm 1 GM/100 ML BAG IVPB SCH (15:58)
--- NOTE | 2017-05-28 17:47 | CON ---
DATE: 05/28/2017 HISTORY OF PRESENT ILLNESS: The patient is an 86-year-old male, status post hospitalization for obstructive uropathy with acute renal failure which was relieved by placement of a Beck catheter with improvement in renal function. The patient was seen by urology, Dr. Sotelo. He has a history of obstructive uropathy in the past due to enlarged prostate. The patient is transferred to the transitional care unit for further therapy for deconditioning and gait dysfunction. 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 The patient has no significant past surgical history. SOCIAL HISTORY: The patient is a former smoker. He has no history of alcohol abuse. He is dependent with IADLs and needs assistance with ADLs. CURRENT MEDICATIONS: Include Flomax 0.4 mg daily, Marinol 5 mg daily, Norvasc 5 mg daily, Percocet 5/325 one tablet q. 6 p.r.n. and Protonix 40 mg daily. ALLERGIES: THE PATIENT HAS AN ALLERGY TO SULFA WHERE HE HAS A RASH. REVIEW OF SYSTEMS: Positive for fatigue, weight loss and generalized weakness. There is no chest pain or shortness of breath. No fever. No chills. PHYSICAL EXAMINATION: GENERAL: The patient is a cachectic male, in no acute distress. VITAL SIGNS: Blood pressure 118/52, pulse 67, temperature 98.7 and respiratory rate 20. HEENT: Head is normocephalic and atraumatic. Pupils are equal round and reactive to light. Extraocular moments intact. NECK: Supple with no thyromegaly, no carotid bruits. LUNGS: Clear. HEART: Regular rate and rhythm. ABDOMEN: Soft and nontender. Bowel sounds are normoactive. Indwelling Beck catheter is intact. Urine is clear. EXTREMITIES: There is generalized muscle wasting and atrophy bilaterally. NEUROLOGIC: The patient is awake and oriented x3 without focal sensory or motor deficits. SKIN: Warm and dry. LABORATORY DATA: WBC is 9.6, hemoglobin 8.4 and hematocrit 24.7. IMPRESSION: 1. Cachexia/failure to thrive syndrome, rule out occult malignancy. 2. Probable renal cell carcinoma. 3. Benign prostatic hypertrophy, obstructive uropathy, status post acute renal failure. 4. Hypertension. PLAN: The patient is admitted to transitional care unit for physical therapy and subacute rehabilitation. Continue followup by urology, Dr. Sotelo. Further workup for causes of cachexia is per PMD and family. Thank you for this consultation. JANAE Gil MD
--- NOTE | 2017-05-29 00:31 | CON ---
DATE: 05/28/2017 CHIEF COMPLAINT: Weakness. HISTORY OF PRESENT ILLNESS: This is an 86-year-old male with past medical history of cataract, which is bilateral and a history of renal cell cancer, colonic polyps, arthritis with urinary retention, was admitted with urinary retention, had a Beck catheter placement and Infectious Disease consultation requested. REVIEW OF SYSTEMS: Reveals the patient had urinary retention and low grade fevers. No chest pain, shortness of breath or cough. No abdominal pain or diarrhea. PAST MEDICAL HISTORY: Significant for hypertension, arthritis, colonic polyps, renal cell cancer and bilateral cataracts. PAST SURGICAL HISTORY: Significant for TURP. ALLERGIES: THE PATIENT'S ALLERGIES REPORTED TO BE SULFA. THE TYPE OF ALLERGY HE STATES IS NOT CLEAR. MEDICATIONS AT HOME: Reviewed and noted. PHYSICAL EXAMINATION: GENERAL: The patient is in bed, appearing weak and chronically ill. VITAL SIGNS: Temperature of 98, blood pressure is 112/70, respiratory rate 18 and heart rate of 77. HEENT: Unremarkable. NECK: Supple. LUNGS: Decreased breath sounds: HEART: Normal S1 and S2. ABDOMEN: Soft and nontender. LABORATORY DATA: The patient had a CAT scan of the abdomen and pelvis in the acute care, which reveals patchy, nodular infiltrates in both lung bases with no findings in the abdomen and review of the cultures reveal the patient did have blood cultures that were negative. The patient had a pansensitive Proteus mirabilis. ASSESSMENT AND PLAN: This is an 86-year-old male with urinary retention, history of renal cell carcinoma, colonic polyps, hypertension, arthritis with Proteus mirabilis cystitis, which is pansensitive Proteus with acute kidney injury. We will treat the patient with ceftriaxone 1 g once daily and we will be able to switch to p.o. antibiotics. We will make further recommendations. We will follow closely with you. Eder Torres MD
--- NOTE | 2017-05-29 04:33 | HP ---
CHIEF COMPLAINT: Fatigue and tired. HISTORY OF PRESENT ILLNESS: Mr. Anjel Quinones is an 86-year-old male was seen by me at [facility]. He was getting rehab there and I met the patient's and son there. The patient was discharged home with his son and and finally was decided that she cannot take care of him and the patient was brought back to medical floor. The patient has obstructive uropathy. Urology consult called with Dr. Munoz. Dr. Munoz met with the and gave different options. The patient has rule out renal CA. Now, the patient was improving, transferred to TCU for physical therapy and continuity of care. Now, I saw the patient in the TCU and feeling better. No nausea, vomiting, or diarrhea. PAST MEDICAL HISTORY: Cataract surgery, hematuria, and TURP. FAMILY HISTORY: Father and mother noncontributory. HABITS: Never smoked. No drugs. No ethanol. Occasionally red wine. ALLERGIES: THE PATIENT IS ALLERGIC WITH SULFA. HOME MEDICATIONS: Reviewed by me. REVIEW OF SYSTEMS: The patient is seen and examined on the bedside, looking comfortable. No fever. No chills. No nausea, vomiting, or diarrhea. No hematuria. No hematochezia. No swelling of the legs. No chest pain. No palpitations. No fever. No chills. Has deconditioned and dyspnea on exertion. PHYSICAL EXAMINATION: VITAL SIGNS: Temperature 97.4, pulse 77, blood pressure 133/58, and respiratory rate 20. HEENT: Head is normocephalic and atraumatic. Eyes: PERRLA. Extraocular muscles are intact. Conjunctivae are clear. Nose is patent. Mucous membranes moist. NECK: Supple. No carotid bruit. No JVD or thyromegaly. CHEST: Bilaterally symmetrical. HEART: S1 and S2 positive. LUNGS: Clear to auscultation. ABDOMEN: Soft. Bowel sounds positive. No organomegaly. EXTREMITIES: No edema. No cyanosis. NEUROLOGIC: The patient is awake and alert. Moving all four extremities. No focal deficit. LABORATORY DATA: White blood cell 9.6, hemoglobin 8.4, hematocrit 24.7, and platelets 373. ASSESSMENT AND PLAN: Mr. Anjel Quinones is an 86-year-old male with history of benign prostatic hypertrophy with obstructive uropathy, probably renal cell carcinoma, hypertension, generalize cachexia of unknown etiology with renal failure to thrive, failure to thrive syndrome or may be due to malignancy. The patient has no surgical or past medical history as per Dr. Guy. Now, the patient is not eating very well, rule out malignancy, status post acute renal failure improving, and hypertension. The patient was admitted on the medical site, now brought to Transitional Care Unit for physical therapy and subacute rehab for continuity of care. Continue to follow with the urologist, Dr. Munoz. We will try to call consult with Dr. Sony Watts, may be the patient need a biopsy. The patient looks depressed. We will call consult with the psychiatrist. We will followup. Chandrika Claros MD
[2017-05-29] MEDS: Pantoprazole 40 mg EC Tab PO SCH (06:16)
--- NOTE | 2017-05-29 10:22 | CP.PCM.CON ---
History of Present Illness - History of Present Illness History of Present Illness: Heme/Onc Consult Note for Dr. Cui's service HPI: Patient is an 86yo male with past medical history of BPH with obstructive uropathy, hypertension, failure to thrive that presented to [facility] with acute renal failure secondary to obstructive uropathy due to BPH. He underwent urologic intervention and was subsequently transferred to the TCU for physical therapy/rehabilitation. CT abd/pelvis from 11/11/16 revealed a solid enhancing mass in the right kidney measuring 2.8cm in diameter, concerning for neoplasm. Oncology consulted for further evaluation. PMH: see above Allergies: Sulfa Social Hx: denies alcohol, tobacco and illicit drug use Family Hx: reviewed, non-contributory Past Patient History - Past Medical History & Family History Past Medical History?: Yes - Past Social History Smoking Status: Former Smoker - CARDIAC Hx Hypertension: Yes - PULMONARY Hx Respiratory Disorders: No - NEUROLOGICAL Hx Neurological Disorder: No - HEENT Hx Cataracts: Yes (b/l sched for sx on L eye end of july) - RENAL Hx Chronic Kidney Disease: No - ENDOCRINE/METABOLIC Hx Endocrine Disorders: No - HEMATOLOGICAL/ONCOLOGICAL Hx Anemia: Yes Hx Cancer: Yes (probable renal cell CA) Other/Comment: small tumor r kidney - INTEGUMENTARY Other/Comment: right hip stage 2 1cm x 1cm open wound, redness to b/l ears st 1 , redness to right groin, skin discolorations b/l arms - MUSCULOSKELETAL/RHEUMATOLOGICAL Hx Falls: No - GASTROINTESTINAL Hx Gastrointestinal Disorders: Yes (weight loss poor appetite) - GENITOURINARY/GYNECOLOGICAL Hx Genitourinary Disorders: Yes Hx Reproductive Disorders: No - PSYCHIATRIC Hx Substance Use: No - SURGICAL HISTORY Other/Comment: prostate surgery, colon polyps - ANESTHESIA Hx Anesthesia Reactions: No Hx Malignant Hyperthermia: No Meds Allergies/Adverse Reactions: Allergies Allergy/AdvReac Type Severity Reaction Status Date / Time Sulfa (Sulfonamide Allergy RASH Verified 05/29/17 08:30 Antibiotics) - Medications Medications: Current Medications Acetaminophen (Tylenol 325mg Tab) 650 mg PO Q4 PRN; Protocol PRN Reason: Fever >100.5 F Amlodipine Besylate (Norvasc) 5 mg PO DAILY JULIAN PRN Reason: Protocol Last Admin: 05/28/17 10:20 Dose: Not Given Bacitracin (Bacitracin) 1 ea TOP TID JULIAN PRN Reason: Protocol Last Admin: 05/28/17 17:14 Dose: Not Given Dronabinol (Marinol) 5 mg PO DAILY [facility] PRN Reason: Protocol Last Admin: 05/28/17 11:30 Dose: Not Given Sodium Chloride (Sodium Chloride 0.9%) 1,000 mls @ 100 mls/hr IV .Q10H JULIAN PRN Reason: Protocol Last Admin: 05/28/17 21:35 Dose: 100 mls/hr Ceftriaxone Sodium (Rocephin 1 Gram Ivpb) 1 gm in 100 mls @ 100 mls/hr IVPB DAILY JULIAN PRN Reason: Protocol Stop: 06/06/17 14:59 Last Admin: 05/28/17 15:58 Dose: 100 mls/hr Ondansetron HCl (Zofran Inj) 4 mg IVP Q4H PRN; Protocol PRN Reason: Nausea/Vomiting Oxycodone/Acetaminophen (Percocet 5/325 Mg Tab) 1 tab PO Q6H PRN; Protocol PRN Reason: Pain, moderate (4-7) Stop: 05/30/17 22:45 Last Admin: 05/28/17 21:37 Dose: 1 tab Pantoprazole Sodium (Protonix Ec Tab) 40 mg PO 0600 [facility] PRN Reason: Protocol Last Admin: 05/29/17 06:16 Dose: Not Given Tamsulosin HCl (Flomax) 0.4 mg PO PCB [facility] PRN Reason: Protocol Last Admin: 05/29/17 08:11 Dose: 0.4 mg Physical Exam - Constitutional Appears: Cachectic - Head Exam Head Exam: ATRAUMATIC, NORMAL INSPECTION, NORMOCEPHALIC - Eye Exam Eye Exam: EOMI, PERRL - ENT Exam ENT Exam: Mucous Membranes Moist - Respiratory Exam Respiratory Exam: Decreased Breath Sounds. absent: Rales, Rhonchi, Wheezes - Cardiovascular Exam Cardiovascular Exam: +S1, +S2. absent: Gallop, Rubs, Systolic Murmur - GI/Abdominal Exam GI & Abdominal Exam: Soft. absent: Distended, Firm, Guarding, Rebound, Tenderness - Extremities Exam Extremities exam: Positive for: normal inspection - Neurological Exam Neurological exam: Alert, Oriented x3 - Psychiatric Exam Psychiatric exam: Depressed - Skin Skin Exam: Dry, Intact, Normal Color, Warm Results - Vital Signs Recent Vital Signs: Last Vital Signs Temp 97.4 F L 05/28/17 17:32 Pulse 77 05/28/17 17:32 Resp 20 05/28/17 17:32 BP 133/68 05/28/17 17:32 Pulse Ox 96 05/28/17 17:32 - Labs Result Diagrams: 05/28/17 06:50 Assessment & Plan - Assessment and Plan (Free Text) Plan: 86yo male with history of BPH with obstructive uropathy, hypertension, failure to thrive that presented to [facility] with acute renal failure secondary to obstructive uropathy. Noted to have a 2.8cm right renal mass. Oncology consulted for further evaluation 1. Solitary right renal mass 2. Obstructive uropathy 3. Acute kidney injury 4. BPH 5. hypertension 6. failure to thrive -CT abd/pelvis from 10/2016 reviewed; revealed a solitary right renal mass 2.8cm in diameter -Differential for solitary renal mass could include but are not limited to renal cell carcinoma (clear cell vs non-clear cell), angiomyolipoma and lymphoma which may also present as a solitary tumor -Discussed with patient the need for further workup which would include biopsy of the mass -Treatment options to be discussed with patient should be decide to proceed with biopsy -In the meantime, continue current medical management -Further recommendations as per Dr. Cui Patient seen and case discussed with attending, Dr. Cui - Date & Time Date: 05/29/17 Time: 10:56
[2017-05-29] MEDS: cefTRIAXone 1 gm 1 GM/100 ML BAG IVPB SCH (11:00)
[2017-05-29] MEDS: Bacitracin 500 Units/gm Oint Foilpak UD TOP SCH ×3 (11:03→17:20)
[2017-05-29] MEDS: Sodium Chloride 0.9% 1,000 ML IV SCH ×2 (11:04→21:26)
--- NOTE | 2017-05-29 13:31 | CP.PCM.PN ---
Subjective - Date & Time of Evaluation Date of Evaluation: 05/29/17 Time of Evaluation: 08:45 - Subjective Subjective: NAD, denies abd pain, no nausea/vomiting, eating ok Objective - Vital Signs/Intake and Output Vital Signs (last 24 hours): Temp Pulse Resp BP Pulse Ox 97.4 F L 77 20 115/72 96 05/28/17 17:32 05/28/17 17:32 05/28/17 17:32 05/29/17 11:01 05/28/17 17:32 Intake and Output: 05/29/17 05/29/17 06:59 18:59 Intake Total 420 Output Total 1650 Balance -1230 - Medications Medications: Current Medications Acetaminophen (Tylenol 325mg Tab) 650 mg PO Q4 PRN; Protocol PRN Reason: Fever >100.5 F Amlodipine Besylate (Norvasc) 5 mg PO DAILY [facility]UL[facility] PRN Reason: Protocol Last Admin: 05/29/17 11:01 Dose: 5 mg Bacitracin (Bacitracin) 1 ea TOP TID JULIAN PRN Reason: Protocol Last Admin: 05/29/17 11:03 Dose: 1 ea Dronabinol (Marinol) 5 mg PO DAILY [facility]ULIAN PRN Reason: Protocol Last Admin: 05/29/17 11:02 Dose: 5 mg Sodium Chloride (Sodium Chloride 0.9%) 1,000 mls @ 100 mls/hr IV .Q10H [facility]ULIAN PRN Reason: Protocol Last Admin: 05/29/17 11:04 Dose: 100 mls/hr Ceftriaxone Sodium (Rocephin 1 Gram Ivpb) 1 gm in 100 mls @ 100 mls/hr IVPB DAILY [facility]UL[facility] PRN Reason: Protocol Stop: 06/06/17 14:59 Last Admin: 05/29/17 11:00 Dose: 100 mls/hr Ondansetron HCl (Zofran Inj) 4 mg IVP Q4H PRN; Protocol PRN Reason: Nausea/Vomiting Oxycodone/Acetaminophen (Percocet 5/325 Mg Tab) 1 tab PO Q6H PRN; Protocol PRN Reason: Pain, moderate (4-7) Stop: 05/30/17 22:45 Last Admin: 05/28/17 21:37 Dose: 1 tab Pantoprazole Sodium (Protonix Ec Tab) 40 mg PO 0600 [facility]ULIAN PRN Reason: Protocol Last Admin: 05/29/17 06:16 Dose: Not Given Tamsulosin HCl (Flomax) 0.4 mg PO PCB [facility]ULIAN PRN Reason: Protocol Last Admin: 05/29/17 08:11 Dose: 0.4 mg - Labs Labs: 05/28/17 06:50 - Constitutional Appears: Cachectic - Respiratory Exam Respiratory Exam: Chest Wall Tenderness, NORMAL BREATHING PATTERN - Cardiovascular Exam Cardiovascular Exam: REGULAR RHYTHM - GI/Abdominal Exam GI & Abdominal Exam: Soft, Normal Bowel Sounds - Neurological Exam Neurological Exam: Alert, Awake - Skin Skin Exam: Dry, Warm Assessment and Plan (1) Failure to thrive in adult Status: Acute (2) Weight loss, unintentional Status: Acute (3) Renal cell carcinoma Status: Suspected (4) Bladder outlet obstruction Status: Resolved - Assessment and Plan (Free Text) Plan: possible malignancy work-up, continue PT/SW for discharge planning
--- NOTE | 2017-05-29 16:02 | PN ---
DATE: 05/29/2017 SUBJECTIVE: The patient seen earlier this morning in no acute distress, nontoxic. PHYSICAL EXAMINATION: VITAL SIGNS: Temperature is 98, blood pressure is 130/60, respiratory rate of 16. HEENT: Unremarkable. NECK: Supple. LUNGS: Have decreased breath sounds. HEART: Normal S1, S2. ABDOMEN: Soft, nontender. LABORATORY EXAMINATION: Reveals the patient's white count is 9.6, hemoglobin of 8, platelets of 373. Microbiology is noted. 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 Dr. Guy's note is reviewed. May switch to p.o. antibiotics upon discharge. Eder Torres MD
--- NOTE | 2017-05-30 00:50 | PN ---
SUBJECTIVE: The patient is 86-year-old male. The patient was seen and examined at the bedside, looking comfortable. No nausea, vomiting or diarrhea. No hematuria or hematochezia. No swelling of the legs. No chest pain. No palpitations. No headache, no dizziness. PHYSICAL EXAMINATION VITAL SIGNS: Temperature 98.2, pulse 77, blood pressure 118/54, respiratory rate 20. HEENT: Head is normocephalic, atraumatic. Eyes; PERRLA. Extraocular muscles intact. Conjunctivae clear. Nose patent. Mucous membrane moist. NECK: Supple. No carotid bruits, JVD, or thyromegaly. CHEST: Bilaterally symmetrical. HEART: S1 and S2 positive. LUNGS: Clear to auscultation. ABDOMEN: Soft. Bowel sounds positive. No organomegaly. EXTREMITIES: No edema. No cyanosis. NEUROLOGICAL: The patient is awake and alert. Moving all four extremities. No focal deficit. MEDICATIONS: Bacitracin, Flomax, Marinol, Norvasc, Percocet, Protonix, Remeron, Rocephin, NS, Tylenol and Zofran. LABORATORY DATA: White blood cell 9.6, hemoglobin 8.4, hematocrit 24.7 and platelets 373. ASSESSMENT AND PLAN: The patient is an 86-year-old male with history of cataract bilaterally; renal cell cancer; colonic polyps; arthritis; urinary tract infection; urinary retention and a Beck catheter; colonic polyps with infection with Proteus mirabilis cystitis which is sensitive to, currently on ceftriaxone, getting IV antibiotics, ID is thinking about switching to p.o. antibiotics; history of benign prostatic hypertrophy; failure to thrive; renal failure secondary to obstructive uropathy; 2.8 cm right renal mass, solitary mass. CT of the abdomen and pelvis from 11/11 reviewed, revealed solitary right renal mass, 2.8 cm in diameter. Differential diagnosis could be solitary renal mass, could be renal carcinoma, angiomyolipoma, lymphoma. The patient needs further workup that was refused last admission; at this admission, again trying. Appreciate Dr. Cui's input. Review Dr. Guy's notes also. Gastrointestinal and deep venous thrombosis prophylaxis. Repeat labs. We will follow up. Chandrika Claros MD [facility] # [id number]
[2017-05-30] MEDS: Oxycodone/Acetaminophen 5/325 mg Tab PO PRN (03:36)
[2017-05-30] MEDS: Pantoprazole 40 mg EC Tab PO SCH (06:19)
--- NOTE | 2017-05-30 06:37 | CON ---
DATE: HISTORY OF PRESENT ILLNESS: The patient is 86-year-old male with not known previous psychiatric history. The patient has multiple medical issues including BPH, obstructive uropathy, hypertension, failure to thrive. The patient was admitted on the medical side and was transferred to the TCU unit for evaluation of obstructive uropathy due to BPH. Currently, the patient is in TCU for Physical Therapy and rehabilitation. Psych consult was called for evaluation of failure to thrive and possible underlying depression. The patient was seen and examined today. The patient presented to be irritable and not willing to have interview. The patient said that he does not want to talk because he wants to sleep. The patient complained that he was not sleeping that well. During the interview, the patient had a attitude that he was annoyed by this service writer, but obviously the patient has flat affect and irritability. The patient denied history of mental illness, denied history of being admitted to the psychiatric inpatient unit. The patient denied thoughts of harming himself or others. Denied intent or plan. PHYSICAL EXAMINATION: This service writer reviewed vital signs. Vital signs seems to be stable. Temperature 98.3, pulse is 77, blood pressure 118/54. Respirations 20, oxygen saturation is within normal limits. MEDICATIONS: This service writer reviewed the medications, medication is Tylenol, Norvasc, bacitracin, Rocephin, mannitol. The patient will benefit from Remeron 7.5 mg at the nighttime for insomnia as well as to boost his appetite and to address depressive symptoms and irritability. Also it will not affect kidneys and the patient is on Zofran. The patient is on Percocet, Protonix, sodium chloride, tamsulosin. Labs reviewed. Most recent was from yesterday. MENTAL STATUS EXAM: The patient presented to be irritable and angry, not willing to have interview right. No eye contact, poor personal hygiene, look much older than chronological age. Speech was under productive, low volume. Mood described; I do not want to talk, I want to sleep, affect was irritable. Mood congruent. Thought process concrete. Thought content, the patient denied visual, auditory or tactile hallucinations. Denied paranoid ideation. The patient denied thoughts of harming himself or others. Denied intent or plan. Insight and judgment limited. Impulses are well controlled. IMPRESSION: Rule out mood disorder due to general medical condition, rule out major depressive disorder. PLAN: Continue current management. Continue current medication. The patient might benefit from the small dose of Remeron for depression as well as for insomnia and to boost appetite. The patient is in TCU. The patient is having therapy will follow up and advise accordingly. Should you have any questions give me a call back. Arely Lara MD
[2017-05-30] MEDS: Sodium Chloride 0.9% 1,000 ML IV SCH ×3 (08:31→21:15)
--- NOTE | 2017-05-30 09:54 | CP.PCM.PN ---
<Pepito Valencia - Last Filed: 05/30/17 17:51> Subjective - Date & Time of Evaluation Date of Evaluation: 05/30/17 Time of Evaluation: 09:49 - Subjective Subjective: Heme/Onc progress note for Dr. Cui's service Patient seen and examined at bedside this morning. No acute overnight events or new complaints reported. Denies cp, palpitations, SOB. Objective - Vital Signs/Intake and Output Vital Signs (last 24 hours): Temp Pulse Resp BP Pulse Ox 98.2 F 77 20 118/54 L 96 05/29/17 16:00 05/29/17 16:00 05/29/17 16:00 05/29/17 16:00 05/29/17 16:00 Intake and Output: 05/30/17 05/30/17 06:59 18:59 Intake Total 180 Output Total 1700 Balance -1520 - Medications Medications: Current Medications Acetaminophen (Tylenol 325mg Tab) 650 mg PO Q4 PRN; Protocol PRN Reason: Fever >100.5 F Amlodipine Besylate (Norvasc) 5 mg PO DAILY JULIAN PRN Reason: Protocol Last Admin: 05/29/17 11:01 Dose: 5 mg Bacitracin (Bacitracin) 1 ea TOP TID JULIAN PRN Reason: Protocol Last Admin: 05/29/17 17:20 Dose: 1 ea Cefpodoxime Proxetil (Vantin) 200 mg PO Q12 JULIAN PRN Reason: Protocol Stop: 06/04/17 10:01 Dronabinol (Marinol) 5 mg PO DAILY JULIAN PRN Reason: Protocol Last Admin: 05/29/17 11:02 Dose: 5 mg Sodium Chloride (Sodium Chloride 0.9%) 1,000 mls @ 100 mls/hr IV .Q10H JULIAN PRN Reason: Protocol Last Admin: 05/30/17 08:31 Dose: 100 mls/hr Mirtazapine (Remeron) 7.5 mg PO HS JULIAN Last Admin: 05/29/17 21:26 Dose: 7.5 mg Ondansetron HCl (Zofran Inj) 4 mg IVP Q4H PRN; Protocol PRN Reason: Nausea/Vomiting Oxycodone/Acetaminophen (Percocet 5/325 Mg Tab) 1 tab PO Q6H PRN; Protocol PRN Reason: Pain, moderate (4-7) Stop: 05/30/17 22:45 Last Admin: 05/30/17 03:36 Dose: 1 tab Pantoprazole Sodium (Protonix Ec Tab) 40 mg PO 0600 JULIAN PRN Reason: Protocol Last Admin: 05/30/17 06:19 Dose: Not Given Tamsulosin HCl (Flomax) 0.4 mg PO PCB JULIAN PRN Reason: Protocol Last Admin: 05/30/17 08:31 Dose: 0.4 mg - Labs Labs: 05/28/17 06:50 - Constitutional Appears: Cachectic, Chronically Ill - Head Exam Head Exam: ATRAUMATIC, NORMAL INSPECTION, NORMOCEPHALIC - Eye Exam Eye Exam: EOMI - ENT Exam ENT Exam: Mucous Membranes Moist - Respiratory Exam Respiratory Exam: Decreased Breath Sounds. absent: Rales, Rhonchi, Wheezes - Cardiovascular Exam Cardiovascular Exam: +S1, +S2. absent: Clicks, Gallop, Murmur - GI/Abdominal Exam GI & Abdominal Exam: Soft. absent: Distended, Firm, Guarding, Rigid, Tenderness , Rebound - Extremities Exam Extremities Exam: Normal Inspection. absent: Pedal Edema - Neurological Exam Neurological Exam: Alert, Awake, Oriented x3 - Psychiatric Exam Psychiatric exam: Depressed - Skin Skin Exam: Dry, Intact, Normal Color, Warm Assessment and Plan - Assessment and Plan (Free Text) Plan: 86yo male with history of BPH with obstructive uropathy, hypertension, failure to thrive that presented to [facility] [place] with acute renal failure secondary to obstructive uropathy. Noted to have a 2.8cm right renal mass. Oncology consulted for further evaluation 1. Solitary right renal mass 2. Obstructive uropathy 3. Acute kidney injury 4. BPH 5. hypertension 6. failure to thrive -CT abd/pelvis from 10/2016 reviewed; revealed a solitary right renal mass 2.8cm in diameter -Differential for solitary renal mass could include but are not limited to renal cell carcinoma (clear cell vs non-clear cell), angiomyolipoma and lymphoma which may also present as a solitary tumor -Patient was seen today in conjunction with Dr. Cui and discussed that a renal tumor was found on imaging and a biopsy would be needed to guide diagnosis /treatment -Treatment options will be discussed should the patient decide to proceed with biopsy -In the meantime, continue current medical management -Further recommendations as per Dr. Cui Patient seen and case discussed with attending, Dr. Cui <Brody Cui P - Last Filed: 05/31/17 10:26> Objective - Vital Signs/Intake and Output Vital Signs (last 24 hours): Temp Pulse Resp BP Pulse Ox 98.3 F 65 14 131/63 94 L 05/30/17 17:15 05/30/17 17:15 05/30/17 17:15 05/30/17 17:15 05/30/17 17:15 Intake and Output: 05/31/17 05/31/17 06:59 18:59 Intake Total 250 Output Total 800 Balance -550 - Medications Medications: Current Medications Acetaminophen (Tylenol 325mg Tab) 650 mg PO Q4 PRN; Protocol PRN Reason: Fever >100.5 F Amlodipine Besylate (Norvasc) 5 mg PO DAILY JULIAN PRN Reason: Protocol Last Admin: 05/30/17 11:12 Dose: Not Given Bacitracin (Bacitracin) 1 ea TOP TID JULIAN PRN Reason: Protocol Last Admin: 05/30/17 17:12 Dose: 1 ea Cefpodoxime Proxetil (Vantin) 200 mg PO Q12 JULIAN PRN Reason: Protocol Stop: 06/04/17 10:01 Last Admin: 05/30/17 21:09 Dose: 200 mg Dronabinol (Marinol) 5 mg PO DAILY JULIAN PRN Reason: Protocol Last Admin: 05/30/17 11:10 Dose: 5 mg Sodium Chloride (Sodium Chloride 0.9%) 1,000 mls @ 100 mls/hr IV .Q10H JULIAN PRN Reason: Protocol Last Admin: 05/31/17 06:49 Dose: 100 mls/hr Mirtazapine (Remeron) 7.5 mg PO HS JULIAN Last Admin: 05/30/17 21:09 Dose: 7.5 mg Ondansetron HCl (Zofran Inj) 4 mg IVP Q4H PRN; Protocol PRN Reason: Nausea/Vomiting Pantoprazole Sodium (Protonix Ec Tab) 40 mg PO 0600 JULIAN PRN Reason: Protocol Last Admin: 05/31/17 05:47 Dose: 40 mg Tamsulosin HCl (Flomax) 0.4 mg PO PCB JULIAN PRN Reason: Protocol Last Admin: 05/31/17 08:07 Dose: 0.4 mg - Labs Labs: 05/28/17 06:50 Attending/Attestation - Attestation I have personally seen and examined this patient.: Yes I have fully participated in the care of the patient.: Yes I have reviewed all pertinent clinical information, including history, physical exam and plan: Yes
[2017-05-30] MEDS: Bacitracin 500 Units/gm Oint Foilpak UD TOP SCH ×3 (11:09→17:12)
[2017-05-30] MEDS: Cefpodoxime (Vantin) 200 mg Tab PO SCH ×2 (11:12→21:09)
--- NOTE | 2017-05-30 11:19 | CP.PCM.PN ---
Subjective - Date & Time of Evaluation Date of Evaluation: 05/30/17 Time of Evaluation: 10:45 - Subjective Subjective: NAD, denies chest pain or SOB Objective - Vital Signs/Intake and Output Vital Signs (last 24 hours): Temp Pulse Resp BP Pulse Ox 98.2 F 61 20 109/59 L 96 05/29/17 16:00 05/30/17 11:12 05/29/17 16:00 05/30/17 11:12 05/29/17 16:00 Intake and Output: 05/30/17 05/30/17 06:59 18:59 Intake Total 180 Output Total 1700 Balance -1520 - Medications Medications: Current Medications Acetaminophen (Tylenol 325mg Tab) 650 mg PO Q4 PRN; Protocol PRN Reason: Fever >100.5 F Amlodipine Besylate (Norvasc) 5 mg PO DAILY JULIAN PRN Reason: Protocol Last Admin: 05/30/17 11:12 Dose: Not Given Bacitracin (Bacitracin) 1 ea TOP TID JULIAN PRN Reason: Protocol Last Admin: 05/30/17 11:09 Dose: 1 ea Cefpodoxime Proxetil (Vantin) 200 mg PO Q12 JULIAN PRN Reason: Protocol Stop: 06/04/17 10:01 Last Admin: 05/30/17 11:12 Dose: 200 mg Dronabinol (Marinol) 5 mg PO DAILY JULIAN PRN Reason: Protocol Last Admin: 05/30/17 11:10 Dose: 5 mg Sodium Chloride (Sodium Chloride 0.9%) 1,000 mls @ 100 mls/hr IV .Q10H JULIAN PRN Reason: Protocol Last Admin: 05/30/17 11:10 Dose: Not Given Mirtazapine (Remeron) 7.5 mg PO HS [facility] Last Admin: 05/29/17 21:26 Dose: 7.5 mg Ondansetron HCl (Zofran Inj) 4 mg IVP Q4H PRN; Protocol PRN Reason: Nausea/Vomiting Oxycodone/Acetaminophen (Percocet 5/325 Mg Tab) 1 tab PO Q6H PRN; Protocol PRN Reason: Pain, moderate (4-7) Stop: 05/30/17 22:45 Last Admin: 05/30/17 03:36 Dose: 1 tab Pantoprazole Sodium (Protonix Ec Tab) 40 mg PO 0600 [facility] PRN Reason: Protocol Last Admin: 05/30/17 06:19 Dose: Not Given Tamsulosin HCl (Flomax) 0.4 mg PO PCB JULIAN PRN Reason: Protocol Last Admin: 05/30/17 08:31 Dose: 0.4 mg - Labs Labs: 05/28/17 06:50 - Respiratory Exam Respiratory Exam: Clear to Ausculation Bilateral, NORMAL BREATHING PATTERN - Cardiovascular Exam Cardiovascular Exam: REGULAR RHYTHM - GI/Abdominal Exam GI & Abdominal Exam: Soft, Normal Bowel Sounds - Neurological Exam Neurological Exam: Alert, Awake - Skin Skin Exam: Dry, Warm Assessment and Plan (1) Failure to thrive in adult Status: Acute (2) Weight loss, unintentional Status: Acute (3) Renal cell carcinoma Status: Suspected (4) Bladder outlet obstruction Status: Resolved - Assessment and Plan (Free Text) Plan: continue PT, SW for discharge planning, possible malignancy work-up
--- NOTE | 2017-05-30 11:23 | PN ---
DATE: 05/30/2017 SUBJECTIVE: The patient is in bed, in no acute distress. He was seen in room number 316. PHYSICAL EXAMINATION: VITAL SIGNS: With a temperature of 98, blood pressure is 118/50, respiratory rate of 20, and heart rate of 77. HEENT: Examination of HEENT is unremarkable. NECK: Supple. RESPIRATORY: Lungs are decreased breath sounds. HEART: Normal S1, S2. GASTROINTESTINAL: Abdominal examination is soft and nontender. LABORATORY DATA: Examination reveals a white count of 9.6. ASSESSMENT AND PLAN: He is an 86-year-old male with a past medical history of cataract bilateral and renal cancer and colonic polyps, arthritis, urinary retention with a Beck catheter who was admitted with urinary retention with a history of renal cell cancer and colonic polyps with Proteus mirabilis cystitis. Currently on ceftriaxone, may be able to switch to p.o. antibiotics upon discharge since the Proteus mirabilis in the urine is pansensitive.. Dr. Claros's note from yesterday is reviewed. We will discontinue the ceftriaxone and complete the therapy with p.o. Vantin 200 mg p.o. b.i.d. x5 days. Eder Torres MD
--- NOTE | 2017-05-30 13:27 | PN ---
Shortly, the patient is an 86-year-old male with not known previous psychiatric history. The patient was admitted on the medical site for obstructive uropathy, hypertension and failure to thrive. Psych consult was called for evaluation of possible depressive symptoms and possible psychotropic medication. The patient was seen yesterday for consultation. The patient is a very poor historian, irritable, does not want to have interview. At the same time, the patient was making statement that he is not sleeping, but based on the nursing report, the patient slept through the night and did not have any problems. The patient had episodes when he would refuse to eat and refuse to participate in therapy. This radio script writer was followed up . Remeron was started yesterday as per nursing staff. The patient slept well, but the patient refused to talk to this radio script writer saying that he did not sleep last night and he wants to have some rest. No other information is available. The patient was encouraged to eat and nursing staff notified to assist the patient with eating. Besides that, there are no psychotic symptoms and no agitation or aggression. OBJECTIVE: VITAL SIGNS: Stable. Temperature is 98.2, pulse is 77, blood pressure is 118/54, respiration 26 and saturation is 96%. MEDICATIONS: Reviewed. The patient is on Norvasc, bacitracin, Vantin, dronabinol, Remeron was started yesterday 7.5 mg for depression as well as for insomnia as well as to boost appetite. The patient is on Zofran, oxycodone, , Protonix, sodium chloride and Flomax. MENTAL STATUS EXAMINATION: The patient appears to be irritable, not willing to have interview, lying down in position. Mood described "I'm okay, I want to sleep. Affect was irritable, flat. The patient was talking with eye closed. thought process is concrete. Thought content, the patient denied any psychotic symptoms. Denied thoughts of killing himself or others. Denied intents or plan. Insight and judgment limited. Impulses are well controlled. IMPRESSION: Failure to thrive, most likely related to the medical issues; most likely, the patient also has mood disorder due to general medical condition. PLAN: This radio script writer initiated Remeron yesterday. I told to boost the patient's appetite as well as I told it will give good night sleep and help the patient with the depressive symptoms. Family should be involved. The patient has physical therapy. Dietitian consult was needed to be involved. Dr. Florian will follow up on this patient over the weekend. Should you have any questions give me a call back. Arely Lara MD
--- NOTE | 2017-05-31 00:11 | CON ---
PULMONARY CONSULTATION DATE: 05/29/2017 REFERRING PHYSICIAN: Chandrika Claros MD REASON FOR CONSULT: Cough, shortness of breath, malnutrition, and very poor p.o. intake. HISTORY OF PRESENT ILLNESS: This is an 86-year-old gentleman with a past medical history significant for hematuria, history of BPH, and TURP, comes into ER with fatigue, tired, and poor appetite. According to the patient, he does eat, but does not gain any weight, but on my arrival, his lunch has been setting for two hours or so, which he did not touch yet, seems like a very poor p.o. intake. Also, there is an Urology consult to rule out renal cell carcinoma. Gets some cough and shortness of breath. No chest pain. No nausea or vomiting. No diarrhea. No leg pain or leg swelling. PAST MEDICAL HISTORY: Hematuria and BPH. FAMILY HISTORY: No significant cardiopulmonary disease is reported. SOCIAL HISTORY: He denies any smoking or alcohol use. ALLERGIES: ALLERGY TO SULFA. MEDICATIONS: Presently, he is on bacitracin ointment to the affected area, Flomax 0.4 mg daily, Marinol 5 mg daily, Norvasc 5 mg daily, Percocet 5/325 one tablet q.6 hours p.r.n., Protonix 40 mg daily, Remeron 7.5 mg at bedtime, IV fluid normal saline 100 mL/hour, Tylenol p.r.n., Vantin 200 mg twice a day, and Zofran p.r.n. basis. REVIEW OF SYSTEMS: No headaches. No rhinitis. Mild shortness of breath. Occasional cough. No chest pain. No nausea. No vomiting. No diarrhea. No leg pain or leg swelling. PHYSICAL EXAMINATION: GENERAL: Lying in the bed, in no acute distress. VITAL SIGNS: Temperature is 98, heart rate is 65, respiratory rate is 20, blood pressure is 131/63, and pulse ox is 94% on room air. HEENT: Moist mucous membranes. NECK: Supple. No JVD. LUNGS: Fair airflow with a few rhonchi. HEART: S1 and S2. ABDOMEN: Soft and nontender. No organomegaly. EXTREMITIES: No edema. NEUROLOGIC: Awake, alert, and follow simple commands. LABORATORY DATA: Shows hemoglobin 8.4, hematocrit 24.7, WBC 9.6, and platelet is 373. IMPRESSION AND PLAN: Malnourished, anemia, hypertension, suspected renal cell carcinoma, colonic polyps, arthritis, urinary tract infection, and has Proteus mirabilis in the urine. He does have a right renal mass, but still does not answer why he has so poor intake, is this depression/adjustment disorder. The patient was seen by Dr. Mcgee. According to her note, it is most probably medical reasons for his appetite. The patient is already on Marinol as well as on Remeron, also on Protonix. So, we will suggest doing calorie count. If the patient is not taking p.o., then need to consider NG tube/G-tube, the patient is wasting away and malnourished, before he starts getting pressure ulcers and untreatable infection. Thank you and we will follow with you. Terry Rich MD
--- NOTE | 2017-05-31 00:35 | PN ---
DATE: 05/30/2017 SUBJECTIVE: The patient is an 86-year-old male. The patient was seen and examined on 05/30/2017 in the TCU, lying on the bed. Denying chest pain or shortness of breath. No nausea, vomiting or diarrhea. No hematuria or hematochezia. No swelling of the legs. No palpitation. No headache or dizziness. PHYSICAL EXAMINATION: VITAL SIGNS: Temperature 98.2, pulse 61, respiratory rate 20, blood pressure 101/59 and pulse oximetry 96%. HEENT: Head is normocephalic and atraumatic. Eyes: PERRLA. Extraocular muscles are intact. Conjunctivae clear. Nose is patent. Mucous membrane moist. NECK: Supple. No carotid bruit, JVD or thyromegaly. CHEST: Bilaterally symmetrical. HEART: S1 and S2 positive. LUNGS: Clear to auscultation. ABDOMEN: Soft. Bowel sounds present. No organomegaly. EXTREMITIES: No edema. No cyanosis. NEUROLOGIC: The patient is awake and alert. Moving all 4 extremities. No focal deficits. MEDICATIONS: Norvasc, bacitracin, Vantin, Marinol, NS, Remeron, Zofran, Percocet, Protonix and Flomax. LABORATORY DATA: White blood cell 9.6, hemoglobin 8.4, hematocrit 24.7 and platelets 373. ASSESSMENT AND PLAN: Mr. Anjel Quinones is an 86-year-old male with failure to thrive in adult because of malignancy, no appetite; depressed, but do not want to hurt self or others; weight loss unintentionally; renal cell carcinoma, diagnosis still in the process, oncology and Dr. Sony Watts are on the case; bladder outlet obstruction, resolved; is depressed, seen by Dr. Arely Lara, psychiatrist. According to her, the patient appears to be irritable, not willing to have interview. The patient was talking with eyes closed. Denies thoughts of killing himself or others. Denies intents or plan. Insight and judgment are limited. Impulses are well controlled. Failure to thrive. Looks like most of the things are related with medical issues due to general medical condition. Dr. Arely Lara removed the Remeron. According to Dr. Arely Lara, family should be involved. The patient has 1 and son. The patient got physical therapy. Gastrointestinal and deep venous thrombosis prophylaxis. The patient is getting antibiotics by Dr. Torres. According to oncology, the patient needs diagnosis, biopsy; the patient has solitary right renal mass, CT reviewed. Explained to the patient. Treatment options depend on the biopsy result. Meanwhile continue present treatment. We will follow. Chandrika Claros MD
[2017-05-31] MEDS: Pantoprazole 40 mg EC Tab PO SCH (05:47)
[2017-05-31] MEDS: Sodium Chloride 0.9% 1,000 ML IV SCH ×2 (06:49→16:52)
[2017-05-31] MEDS: Bacitracin 500 Units/gm Oint Foilpak UD TOP SCH ×2 (09:58→17:47)
[2017-05-31] MEDS: Cefpodoxime (Vantin) 200 mg Tab PO SCH ×2 (09:59→21:11)
--- NOTE | 2017-05-31 10:02 | CP.PCM.PN ---
Subjective - Date & Time of Evaluation Date of Evaluation: 05/31/17 Time of Evaluation: 09:40 - Subjective Subjective: resting comfortably, NAD Objective - Vital Signs/Intake and Output Vital Signs (last 24 hours): Temp Pulse Resp BP Pulse Ox 98.3 F 65 14 131/63 94 L 05/30/17 17:15 05/30/17 17:15 05/30/17 17:15 05/30/17 17:15 05/30/17 17:15 Intake and Output: 05/31/17 05/31/17 06:59 18:59 Intake Total 250 Output Total 800 Balance -550 - Medications Medications: Current Medications Acetaminophen (Tylenol 325mg Tab) 650 mg PO Q4 PRN; Protocol PRN Reason: Fever >100.5 F Amlodipine Besylate (Norvasc) 5 mg PO DAILY JULIAN PRN Reason: Protocol Last Admin: 05/30/17 11:12 Dose: Not Given Bacitracin (Bacitracin) 1 ea TOP TID JULIAN PRN Reason: Protocol Last Admin: 05/30/17 17:12 Dose: 1 ea Cefpodoxime Proxetil (Vantin) 200 mg PO Q12 JULIAN PRN Reason: Protocol Stop: 06/04/17 10:01 Last Admin: 05/30/17 21:09 Dose: 200 mg Dronabinol (Marinol) 5 mg PO DAILY JULIAN PRN Reason: Protocol Last Admin: 05/30/17 11:10 Dose: 5 mg Sodium Chloride (Sodium Chloride 0.9%) 1,000 mls @ 100 mls/hr IV .Q10H JULIAN PRN Reason: Protocol Last Admin: 05/31/17 06:49 Dose: 100 mls/hr Mirtazapine (Remeron) 7.5 mg PO HS JULIAN Last Admin: 05/30/17 21:09 Dose: 7.5 mg Ondansetron HCl (Zofran Inj) 4 mg IVP Q4H PRN; Protocol PRN Reason: Nausea/Vomiting Pantoprazole Sodium (Protonix Ec Tab) 40 mg PO 0600 JULIAN PRN Reason: Protocol Last Admin: 05/31/17 05:47 Dose: 40 mg Tamsulosin HCl (Flomax) 0.4 mg PO PCB JULIAN PRN Reason: Protocol Last Admin: 05/31/17 08:07 Dose: 0.4 mg - Labs Labs: 05/28/17 06:50 - Respiratory Exam Respiratory Exam: Clear to Ausculation Bilateral, NORMAL BREATHING PATTERN - Cardiovascular Exam Cardiovascular Exam: REGULAR RHYTHM - GI/Abdominal Exam GI & Abdominal Exam: Soft, Normal Bowel Sounds - Neurological Exam Neurological Exam: Alert, Awake - Skin Skin Exam: Dry, Warm Assessment and Plan (1) Failure to thrive in adult Status: Acute (2) Weight loss, unintentional Status: Acute (3) Renal cell carcinoma Status: Suspected (4) Bladder outlet obstruction Status: Resolved - Assessment and Plan (Free Text) Plan: continue physical therapy, social work for discharge planning, may need subacute rehab, await decision re: malignancy work-up
--- NOTE | 2017-05-31 10:33 | PN ---
DATE: 05/31/2017 SUBJECTIVE: The patient is in bed, in no acute distress, and nontoxic. He was seen earlier this morning. PHYSICAL EXAMINATION: VITAL SIGNS: On exam, temperature is 98, blood pressure is 131/60, and respiratory rate of 18. HEENT: Examination of HEENT is unremarkable. NECK: Supple. LUNGS: Decreased breath sounds. HEART: Normal S1 and S2. GASTROINTESTINAL: Abdominal examination is soft and nontender. LABORATORY DATA: Examination reveals a white count is noted. Microbiology cultures are reviewed Proteus. Review of orders reveals the patient to be on this p.o. cefpodoxime and Dr. Claros's note from yesterday is reviewed. ASSESSMENT AND PLAN: This is an 86-year-old male with past medical history of cataract bilateral and renal cancer, colonic polyps, arthritis, urinary retention on Beck catheter, admitted with urinary retention, history of renal cell cancer, colonic polyps, Proteus mirabilis, and cystitis. He is now on p.o. Vantin to complete 5 days and assess, and follow closely with you. Eder Torres MD
--- NOTE | 2017-05-31 16:55 | CON ---
DATE: HISTORY OF PRESENT ILLNESS: The patient is an 86-year-old white male with no prior psychiatric history, who is being followed by Psychiatry for possible depression in consideration of his failure to thrive. I reviewed Dr. Lara's notes, which indicate the patient is a very poor historian, has been irritable, and was very reluctant to participate in an interview. I met with the patient at bedside today and he continues to be irritable and dismissive and refuses to participate in any productive interview. The patient denies any hallucinations, denies suicidal thoughts. The patient refused to ask any orientation questions except for the fact that he knows that he is at [facility] and abruptly interfered by stating "I don't want to answer all these silly questions, God Almighty." Prior to leaving, whether the patient elected or not, I oriented him to the month, current circumstances, year, and locations and strongly recommended that the patient cooperated with staff members and encouraged him to eat indicating the reason for his psychiatric medication of Remeron. Vital signs were reviewed as well as labs; there are no recent labs since 05/28/2017. RELEVANT PSYCHIATRIC MEDICATIONS: Include Remeron 7.5 mg p.o. at bedtime. IMPRESSION: I agree with Dr. Lara. The patient has mood disorder secondary to general medical condition, which includes failure to thrive. PLAN: We will continue Remeron as this can improve his appetite and provide help with sleep at night. Psychiatry will continue to try to engage with the patient and establish report and trust and recommend the staff also continues to encourage the patient to cooperate. Psychiatry will follow up with him every 2 days but is currently more frequent followup and will be happy to visit with the patient. Alisson Florian MD
--- NOTE | 2017-05-31 21:35 | PN ---
SUBJECTIVE: The patient is seen and examined at the bedside, looking comfortable. No nausea, vomiting or diarrhea. No hematuria or hematochezia. No swelling of the legs. No chest pain. No palpitations, but is quite and does not look like in any distress. PHYSICAL EXAMINATION: VITAL SIGNS: Temperature 98, blood pressure 131/60, respiratory rate 18, pulse 80. HEENT: Head normocephalic, atraumatic. Eyes; PERRLA. Extraocular muscles intact. Conjunctivae clear. Nose is patent. NECK: Supple. No carotid bruits, JVD, or thyromegaly. CHEST: Bilaterally symmetrical. HEART: S1 and S2 positive. LUNGS: Clear to auscultation. ABDOMEN: Soft. Bowel sounds present. No organomegaly. EXTREMITIES: No edema. No cyanosis. NEUROLOGIC: The patient is awake and alert. Moving all four extremities. No focal deficit. MEDICATIONS: Bacitracin, Flomax, dronabinol, Norvasc, Protonix, Remeron, NS, Tylenol, Vantin and Zofran. LABORATORY DATA: We do not have recent labs today, but I reviewed old labs. We will order more labs. Actually I am ordering but the patient is refusing. We will try to convince him. ASSESSMENT AND PLAN: The patient is a 86-year-old male with past medical history of cataract bilaterally, rule out renal cancer, colonic polyps, arthritis, urinary tract infection, has Beck catheter, was admitted for urinary retention, Proteus mirabilis, and cystitis. He is now on p.o. Vantin to complete 5 days and assess back by the Infectious Disease Dr. Torres as per him. Failure to thrive in adult, weight loss unintentional. Continue physical therapy. electronic instrument trades worker is working on the case. The patient is refusing malignancy workup but still oncology is on the case. The patient has history of benign prostate hypertrophy, anemia, hypertension, depression and adjustment disorder. The patient is under care of Dr. Mcgee's. The patient is already getting psyche medication. Dr. Mcgee suggested NG tube/G tube after calorie count. Gastrointestinal and deep venous thrombosis prophylaxis. We will follow. Chandrika Claros MD
[2017-06-01] MEDS: Sodium Chloride 0.9% 1,000 ML IV SCH ×2 (03:03→15:35)
[2017-06-01] MEDS: Pantoprazole 40 mg EC Tab PO SCH (05:11)
--- NOTE | 2017-06-01 09:54 | CP.PCM.PN ---
Subjective - Date & Time of Evaluation Date of Evaluation: 06/01/17 Time of Evaluation: 09:40 - Subjective Subjective: NAD, resting comfortably Objective - Vital Signs/Intake and Output Vital Signs (last 24 hours): Temp Pulse Resp BP Pulse Ox 98.5 F 74 18 114/60 98 06/01/17 06:00 06/01/17 06:00 06/01/17 06:00 06/01/17 06:00 06/01/17 06:00 Intake and Output: 06/01/17 06/01/17 06:59 18:59 Intake Total 250 Output Total 2701 Balance -2451 - Medications Medications: Current Medications Acetaminophen (Tylenol 325mg Tab) 650 mg PO Q4 PRN; Protocol PRN Reason: Fever >100.5 F Amlodipine Besylate (Norvasc) 5 mg PO DAILY JULIAN PRN Reason: Protocol Last Admin: 05/31/17 09:59 Dose: 5 mg Bacitracin (Bacitracin) 1 ea TOP TID JULIAN PRN Reason: Protocol Last Admin: 05/31/17 17:47 Dose: Not Given Cefpodoxime Proxetil (Vantin) 200 mg PO Q12 JULIAN PRN Reason: Protocol Stop: 06/04/17 10:01 Last Admin: 05/31/17 21:11 Dose: 200 mg Dronabinol (Marinol) 5 mg PO DAILY JULIAN PRN Reason: Protocol Last Admin: 05/31/17 10:03 Dose: 5 mg Sodium Chloride (Sodium Chloride 0.9%) 1,000 mls @ 100 mls/hr IV .Q10H JULIAN PRN Reason: Protocol Last Admin: 06/01/17 03:03 Dose: 100 mls/hr Mirtazapine (Remeron) 7.5 mg PO HS JULIAN Last Admin: 05/31/17 21:12 Dose: 7.5 mg Ondansetron HCl (Zofran Inj) 4 mg IVP Q4H PRN; Protocol PRN Reason: Nausea/Vomiting Pantoprazole Sodium (Protonix Ec Tab) 40 mg PO 0600 JULIAN PRN Reason: Protocol Last Admin: 06/01/17 05:11 Dose: 40 mg Tamsulosin HCl (Flomax) 0.4 mg PO PCB JULIAN PRN Reason: Protocol Last Admin: 05/31/17 08:07 Dose: 0.4 mg - Labs Labs: 05/28/17 06:50 - Respiratory Exam Respiratory Exam: Clear to Ausculation Bilateral, NORMAL BREATHING PATTERN - GI/Abdominal Exam GI & Abdominal Exam: Soft, Normal Bowel Sounds Assessment and Plan (1) Failure to thrive in adult Status: Acute (2) Weight loss, unintentional Status: Acute (3) Renal cell carcinoma Status: Suspected (4) Bladder outlet obstruction Status: Resolved - Assessment and Plan (Free Text) Plan: continue physical therapy, social work for discharge planning, awaiting decision re: possible work-up for occult malignancy, will sign off case
[2017-06-01] MEDS: Bacitracin 500 Units/gm Oint Foilpak UD TOP SCH ×3 (10:53→18:19)
[2017-06-01] MEDS: Cefpodoxime (Vantin) 200 mg Tab PO SCH ×2 (10:54→22:16)
--- NOTE | 2017-06-01 11:39 | PN ---
DATE: 06/01/2017 SUBJECTIVE: The patient is in bed, in no acute distress, nontoxic. PHYSICAL EXAMINATION: VITAL SIGNS: Temperature is 98, blood pressure 115/50, respiratory rate of 18, heart rate of 77. HEENT: Unremarkable. NECK: Supple. LUNGS: Have decreased breath sounds. HEART: Normal S1 and S2. ABDOMEN: Soft and nontender. LABORATORY EXAMINATION: Reveals a white count of 9.6, hemoglobin of 8, and platelets of 373. Chemistries were noted. ASSESSMENT AND PLAN: This is an 86-year-old male with past medical history of bilateral cataract, past medical renal cancer, colonic polyps, arthritis, urinary retention, Beck catheter, admitted with urinary retention, history of renal cancer, and Proteus mirabilis, and cystitis, on p.o. Vantin to complete 5 more days. The patient's review of orders confirms the Vantin to be active. Dr. Guy's note is reviewed and from yesterday Dr. Claros's note is reviewed. Consultation by Dr. Florian is reviewed. We will follow closely with you. Eder Torres MD
--- NOTE | 2017-06-01 22:53 | PN ---
PULMONARY PROGRESS NOTE DATE: 06/01/2017 REFERRING PHYSICIAN: Dr. Claros. SUBJECTIVE: He is sitting up in bed. Family is at bedside. Feels better today. Have improved appetite. Did have a bowel movement yesterday. No nausea. No vomiting. No leg pain or leg swelling. PHYSICAL EXAMINATION: GENERAL: No acute distress. VITAL SIGNS: Temperature 99, heart rate 69, respiratory rate is 18, blood pressure 119/56 and pulse ox 95% on room air. HEENT: Moist mucous membranes. No ulcer or thrush noted. NECK: Supple. No JVD. LUNGS: Fair airflow with few rhonchi. HEART: S1 and S2. ABDOMEN: Soft and nontender. No organomegaly. EXTREMITIES: No edema. NEUROLOGIC: Awake and alert. Follows simple commands. MEDICATIONS: He is on bacitracin ointment to affected area three times a day, Flomax 0.4 mg , Marinol 5 mg daily, Norvasc 5 mg daily, Protonix 40 mg daily, Remeron 7.5 mg h.s., IV fluid normal saline 100 mL per hour, Tylenol p.r.n., Vantin 200 mg twice a day and Zofran p.r.n. basis. LABORATORY DATA: Reviewed. No new lab is available. ASSESSMENT AND PLAN: Malnutrition, anemia, hypertension, suspect renal cell carcinoma, colonic polyps, arthritis, urinary tract infection, has Proteus mirabilis in the urine. Pulmonary point of view, doing okay. Spoke to family at bedside. Continue to encourage p.o. intake. Aspiration precaution. Out of bed to chair. Continue calorie count. High risk for pressure ulcers. Thank you and we will follow with you. Terry Rich MD
[2017-06-02] MEDS: Sodium Chloride 0.9% 1,000 ML IV SCH ×2 (01:23→10:17)
--- NOTE | 2017-06-02 02:55 | PN ---
SUBJECTIVE: The patient is an 86 years old male. The patient is seen and examined on the bedside, looking comfortable. Does not look like in any distress. No nausea, vomiting, or diarrhea. No hematuria or hematochezia. No swelling of the legs. No chest pain or palpitation. No headache. No dizziness. The patient is not complaining about anything. PHYSICAL EXAMINATION: VITAL SIGNS: Temperature 98.5, pulse 74, respiratory rate 18, blood pressure 114/50 and pulse oximetry 98. HEENT: Head: Normocephalic and atraumatic. Eyes: PERRLA. Extraocular muscles are intact. Conjunctivae are clear. Nose is patent. Mucous membranes are moist. NECK: Supple. No carotid bruits. No JVD or thyromegaly. CHEST: Bilaterally symmetrical. HEART: S1 and S2 positive. LUNGS: Clear to auscultation. ABDOMEN: Soft. Bowel sounds are positive. No organomegaly. EXTREMITIES: No edema. No cyanosis. NEUROLOGIC: The patient is awake and alert. Moving all 4 extremities. No focal deficits. MEDICATIONS: Norvasc, bacitracin, Vantin, Marinol, NS, Remeron, Zofran, Protonix and tamsulosin. LABORATORY DATA: We does not have recent labs. I reviewed old labs. ASSESSMENT AND PLAN: The patient is an 86-year-old male, failure to thrive in adult, weight loss unintentional, renal cell carcinoma, bladder outlet obstruction, gastrointestinal and deep venous thrombosis prophylaxis. ID is on the case. Noncompliant, bilateral cataract surgery, rule out renal malignancy, chronic polyp, arthritis, has Beck's catheter, was admitted for urinary retention, history of Proteus mirabilis and cystitis, on p.o. Vantin to complete 5 days of antibiotics as per Infectious Disease. I reviewed all notes by Dr. Griffin Guy, Dr. Torres, Dr. Anival Vinosn. Talked to the patient about the treatment and plan. We will talk to the family also. Repeat labs. We will follow. Chandrika Claros MD
[2017-06-02] MEDS: Pantoprazole 40 mg EC Tab PO SCH (05:35)
[2017-06-02 07:51] LABS: HEMATOCRIT 25.3 % (42.0-52.0); MEAN CELL VOLUME 91.3 fl (80.0-105.0); MEAN CORPUSCULAR HEMOGLOBIN 29.6 pg (25.0-35.0); MEAN CORPUSCULAR HGB CONC 32.4 g/dl (31.0-37.0); MEAN PLATELET VOLUME 8.9 fl (7.0-11.0); RED CELL DISTRIBUTION WIDTH 15.2 % (11.5-14.5); WHITE BLOOD COUNT 7.4 10^3/ul (4.5-11.0)
[2017-06-02 08:01] LABS: BLOOD UREA NITROGEN 25 mg/dL (7-21); CALCIUM 7.7 mg/dL (8.4-10.5); CARBON DIOXIDE 28 mmol/L (21-33); CHLORIDE 109 mmol/L (95-110); GFR AFRICAN-AMERICAN > 60; GLUCOSE,RANDOM 88 mg/dL (70-110); POTASSIUM 4.3 mmol/L (3.6-5.0); SODIUM 142 mmol/L (132-148)
[2017-06-02] MEDS: Bacitracin 500 Units/gm Oint Foilpak UD TOP SCH (10:17)
--- NOTE | 2017-06-02 10:17 | PN ---
DATE: 05/31/2017 PULMONARY PROGRESS NOTE REFERRING PHYSICIAN: Dr. Claros. SUBJECTIVE: Subjectively, he is sitting up in a bed, having lunch, feels okay. No recent bowel movement. No cough. No sputum production, leg pain or leg swelling. OBJECTIVE: GENERAL: In no acute distress. VITAL SIGNS: Temp 99, heart rate is 69, respiratory rate is 20, blood pressure 115/57, pulse ox 95% on room air. HEENT: Moist mucous membrane. No ulcer or thrush noted. NECK: Supple. No JVD. LUNGS: Have fair airflow with few rhonchi. HEART: S1 and S2. ABDOMEN: Soft, nontender. No organomegaly. EXTREMITIES: There is no edema. NEUROLOGICAL: Awake and alert. Follows simple commands. MEDICATIONS: He has bacitracin ointment to affected area 3 times a day, Flomax 0.4 mg daily, Marinol 5 mg daily, Norvasc 5 mg daily, Protonix 40 mg daily, Remeron 7.5 mg at bedtime, IV fluids normal saline 100 mL/hour, Tylenol p.r.n., Vantin 200 mg twice a day, Zofran p.r.n. basis. LABORATORY DATA: Reviewed. No new lab is available. IMPRESSION: 1. Malnutrition. 2. Anemia. 3. Hypertension. 4. Suspected renal cell carcinoma. 5. Renal mass. 6. Colonic polyp. 7. Arthritis. 8. Urinary tract infection. PLAN: Has a proteus mirabilis in the urine. Workup is in progress for malnutrition. Calorie count is being counted. The patient seen by psychiatry. Gastric prophylaxis. DVT prophylaxis. Fall precaution. Continue therapy. Thank you and we will follow with you. Terry Rich MD
[2017-06-02] MEDS: Cefpodoxime (Vantin) 200 mg Tab PO SCH ×2 (10:18→22:10)
--- NOTE | 2017-06-02 12:55 | CP.PCM.CON ---
History of Present Illness - History of Present Illness History of Present Illness: Palliative consult requested by Dr. Gage Claros Reason: Goals of care/advance care planning 86 year old male with history of BPH, obstructive uropathy, HTN and failure to thrive who was admitted to acute care in acute renal failure secondary to BPH with obstruction.He denied fever,chills, nausea, vomiting. He has since had TURP and has been transitioned to [facility]. PMHx: Failure to thrive, BPH, obstructive uropathy, HTN, right renal mass. Social History: Former smoker, no alcohol or drug use. , lives with spouse. Family History: Non contributory. Review of Systems: Weakness, weight loss, difficulty urinating, all other systems reviewed and are normal Past Patient History - Past Medical History & Family History Past Medical History?: Yes - Past Social History Smoking Status: Former Smoker - CARDIAC Hx Hypertension: Yes - PULMONARY Hx Respiratory Disorders: No - NEUROLOGICAL Hx Neurological Disorder: No - HEENT Hx Cataracts: Yes (b/l sched for sx on L eye end of july) - RENAL Hx Chronic Kidney Disease: No - ENDOCRINE/METABOLIC Hx Endocrine Disorders: No - HEMATOLOGICAL/ONCOLOGICAL Hx Anemia: Yes Hx Cancer: Yes (probable renal cell CA) Other/Comment: small tumor r kidney - INTEGUMENTARY Other/Comment: right hip stage 2 1cm x 1cm open wound, redness to b/l ears st 1 , redness to right groin, skin discolorations b/l arms - MUSCULOSKELETAL/RHEUMATOLOGICAL Hx Falls: No - GASTROINTESTINAL Hx Gastrointestinal Disorders: Yes (weight loss poor appetite) - GENITOURINARY/GYNECOLOGICAL Hx Genitourinary Disorders: Yes Hx Reproductive Disorders: No - PSYCHIATRIC Hx Substance Use: No - SURGICAL HISTORY Other/Comment: prostate surgery, colon polyps - ANESTHESIA Hx Anesthesia Reactions: No Hx Malignant Hyperthermia: No Meds Allergies/Adverse Reactions: Allergies Allergy/AdvReac Type Severity Reaction Status Date / Time Sulfa (Sulfonamide Allergy RASH Verified 05/29/17 08:30 Antibiotics) - Medications Medications: Current Medications Acetaminophen (Tylenol 325mg Tab) 650 mg PO Q4 PRN; Protocol PRN Reason: Fever >100.5 F Amlodipine Besylate (Norvasc) 5 mg PO DAILY JULIAN PRN Reason: Protocol Last Admin: 06/02/17 10:17 Dose: 5 mg Bacitracin (Bacitracin) 1 ea TOP TID JULIAN PRN Reason: Protocol Last Admin: 06/02/17 10:17 Dose: 1 ea Cefpodoxime Proxetil (Vantin) 200 mg PO Q12 JULIAN PRN Reason: Protocol Stop: 06/04/17 10:01 Last Admin: 06/02/17 10:18 Dose: 200 mg Dronabinol (Marinol) 5 mg PO DAILY JULIAN PRN Reason: Protocol Last Admin: 06/02/17 10:17 Dose: 5 mg Sodium Chloride (Sodium Chloride 0.9%) 1,000 mls @ 100 mls/hr IV .Q10H JULIAN PRN Reason: Protocol Last Admin: 06/02/17 10:17 Dose: 100 mls/hr Mirtazapine (Remeron) 15 mg PO HS JULIAN Ondansetron HCl (Zofran Inj) 4 mg IVP Q4H PRN; Protocol PRN Reason: Nausea/Vomiting Pantoprazole Sodium (Protonix Ec Tab) 40 mg PO 0600 JULIAN PRN Reason: Protocol Last Admin: 06/02/17 05:35 Dose: 40 mg Tamsulosin HCl (Flomax) 0.4 mg PO PCB JULIAN PRN Reason: Protocol Physical Exam - Constitutional Appears: Cachectic, Chronically Ill - Head Exam Head Exam: NORMOCEPHALIC - Eye Exam Eye Exam: Normal appearance, PERRL - ENT Exam ENT Exam: Mucous Membranes Moist, Normal Oropharynx - Respiratory Exam Respiratory Exam: Decreased Breath Sounds, NORMAL BREATHING PATTERN - Cardiovascular Exam Cardiovascular Exam: REGULAR RHYTHM, +S1, +S2 - GI/Abdominal Exam GI & Abdominal Exam: Normal Bowel Sounds, Soft Additional comments: no tenderness or guarding - Extremities Exam Extremities exam: Positive for: normal inspection, pedal pulses present - Back Exam Back exam: NORMAL INSPECTION - Skin Skin Exam: Dry, Pallor - Additional Findings Additional findings: Palliative performance status 40 % Results - Vital Signs Recent Vital Signs: Last Vital Signs Temp 99 F 06/02/17 06:00 Pulse 76 06/02/17 10: Resp 20 06/02/17 06:00 BP 117/52 L 06/02/17 10:17 Pulse Ox 92 L 06/02/17 06:00 - Labs Result Diagrams: 06/02/17 07:30 06/02/17 07:30 Labs: Laboratory Results - last 24 hr 06/02/17 06/02/17 07:30 07:30 WBC 7.4 D RBC 2.77 L Hgb 8.2 L Hct 25.3 L MCV 91.3 MCH 29.6 MCHC 32.4 RDW 15.2 H Plt Count 392 MPV 8.9 Sodium 142 Potassium 4.3 Chloride 109 Carbon Dioxide 28 Anion Gap 9 L BUN 25 H Creatinine 0.8 Est GFR ( Amer) > 60 Est GFR (Non-Af Amer) > 60 Random Glucose 88 Calcium 7.7 L Assessment & Plan - Assessment and Plan (Free Text) Assessment: 86 year old male with history of obstructive BPH was recently admitted with urinary retention, acute renal failure. He is s/p TURP. Now seen in TCU for deconditioning. He is scheduled for placement of suprapubic tube prior to discharge form TRCU. Denies pain,states he is tired. Does not appear to be in distress. Affirms that his appetite is good but he keeps losing weight. He states that he has an Advanced Directive at home. Patient is not willing to participate in further discussion regarding advance care planning. Requesting that I speak with his . Georgina OLIVEIRA and I met with patients and son. states that the patient has an Advanced Directive and that he is DNR/DNI. Patient's son also collaborates this. requesting that patient be made DNR/DNI. Family is concerned about patients continued weight loss and fatigue. When asked if they wanted to pursue oncology work up for renal mass, family states they already have done so. As per , she spoke with Dr. Escobar who indicated there is nothing to be done. Family states that renal mass has not gotten bigger. Family feels problem is GI in nature and requesting the patient be seen by GI specialist for further input. Hospice care discussed with and son. states that once GI has evaluated her , if nothing can be done family will then consider transitioning home with hospice care at home. Family does not want patient to go to back to long-term. Time spent with and son in foals of care discussion and advance care planning, 40 minutes Plan: As discussed with Dr Gage Claros, who is in agreement DNR/DNI GI evaluation Will assist with establishing future goals of care advance care planning
--- NOTE | 2017-06-02 13:43 | PN ---
DATE: SUBJECTIVE: The patient was followed up today. The patient was seen by Psychiatry team because of possible underlying depression and failure to thrive. The patient was seen by Dr. Florian over the weekend. Notes reviewed. The patient still present to be irritable, was not willing to have interview, and was reluctantly answering further questions. The patient also found to be sarcastic and saying, "why you cannot bring more doctors to this room, maybe there will help me." Besides that, the patient said that he wants to sleep and he did not sleep very well last night because of the floor being noisy. Besides that, the patient denied being depressed, denied thoughts of harming himself or others, denies intent or plan. The patient ate breakfast today, but reported to have a bed appetite. The patient also said that he wants to have Ensure, but later on, the patient also complained that he feels weak, that is why he cannot walk very good. The patient reported that his family is supportive and they visit him once in a while. The patient said that he lives with his family. I do not know how true this information. Besides that, there is no psychosis. No agitation. Vital signs are stable. Temperature 99, pulse of 68, blood pressure 126/58, respirations 20, oxygen saturation 92. Medications reviewed. Tylenol, Norvasc, bacitracin, Vantin, Mannitol, and Remeron will be increased to 15 mg at the nighttime. This freelance writer educated the patient about risks, benefits, and alternatives of the medications Zofran, Protonix, sodium chloride, and Flomax. Labs reviewed. Chemistry reviewed. MENTAL STATUS EXAM: The patient appears to be irritable and not willing to have interview, intermittent eye contact. The patient laying in position. Speech was under productive, yes/no answers. Mood described, I want to sleep. Affect was constricted and irritable. Thought process seems to be concrete. Thought content, the patient denied visual, auditory or tactile hallucinations. Denied paranoid ideation. The patient denied thoughts of harming himself or others. Denied intents or plan. Insight and judgment are limited. Impulses are well controlled. IMPRESSION: Rule out mood disorder due to general medical condition, rule out adjustment disorder. The patient has multiple medical issues, failure to thrive, difficulty to ambulate, weakness. See medical team notes for more detailed information. PLAN: Continue current management. This freelance writer will increase the dose of Remeron to 15 mg at the nighttime for depression and insomnia and to boost appetite. Continue current management and medication, physical therapy follow up. This freelance writer will follow up on this patient every other day. Should you have any questions give me a call back. Thank you very much for letting me participate in care of your patient. Arely Lara MD
--- NOTE | 2017-06-02 21:56 | PCM.URO ---
Urology Progress Note - Subjective Hematuria: Yes - Objective Lab Studies: Reviewed (gu plans: will continue to encourage pt to have spt) Lab Results Last 24 Hours: Laboratory Results - last 24 hr 06/02/17 06/02/17 07:30 07:30 WBC 7.4 D RBC 2.77 L Hgb 8.2 L Hct 25.3 L MCV 91.3 MCH 29.6 MCHC 32.4 RDW 15.2 H Plt Count 392 MPV 8.9 Sodium 142 Potassium 4.3 Chloride 109 Carbon Dioxide 28 Anion Gap 9 L BUN 25 H Creatinine 0.8 Est GFR ( Amer) > 60 Est GFR (Non-Af Amer) > 60 Random Glucose 88 Calcium 7.7 L Intake & Output: Intake & Output 06/02/17 06/02/17 06/03/17 06:59 18:59 06:59 Intake Total 240 Output Total 2150 Balance -1910 Intake: Oral 240 Output: Urine 2150 Urethral (Beck) 2150 Other: # Voids Urethral (Beck) 1 # Bowel Movements 1 Vital Signs: Vital Signs - 24 hr 06/02/17 06/02/17 06/02/17 06:00 10:00 10:17 Temperature 99 F 97.9 F Pulse Rate 68 76 76 Respiratory 20 20 Rate Blood Pressure 126/58 L 117/52 L 117/52 L O2 Sat by Pulse 92 L 99 Oximetry 06/02/17 16:00 Temperature 98.6 F Pulse Rate 76 Respiratory 15 Rate Blood Pressure 129/58 L O2 Sat by Pulse Oximetry
--- NOTE | 2017-06-03 01:33 | PN ---
DATE: 06/02/2017 PULMONARY PROGRESS NOTE REFERRING PHYSICIAN: Dr. Claros. SUBJECTIVE: The patient is sitting up in a bed. Night was unremarkable. Had a bowel movement today. Started eating a little better. No cough. No sputum production. No nausea. No leg pain or leg swelling. OBJECTIVE GENERAL: In no acute distress. VITAL SIGNS: Temperature 98, heart rate 76, respiratory rate is 16, blood pressure is 129/58, pulse ox 99% on room air. HEENT: Moist mucous membrane. No ulcer or thrush noted. NECK: Supple. No JVD. LUNGS: Fair airflow with few rhonchi. HEART: S1 and S2. ABDOMEN: Soft and nontender. EXTREMITIES: No edema. NEUROLOGICAL: Awake and alert. Follows simple commands. MEDICATIONS: He is on bacitracin ointment to affected area three times a day, Flomax 0.4 mg , Marinol 5 mg daily, Norvasc 5 mg daily, Protonix 40 mg daily, Remeron 50 mg at bedtime, IV fluids normal saline 100 mL per hour, Tylenol p.r.n., Vantin 200 mg twice a day, Zofran p.r.n. basis. LABORATORY DATA: Shows hemoglobin 8.2, hematocrit 25.3, WBC 7.4, platelet count is 392. Sodium 142, potassium 4.3, chloride 109, bicarbonate 28, BUN 25, creatinine 0.8, glucose 88, calcium 7.7. IMPRESSION AND PLAN: Malnutrition, anemia, hypertension, suspect renal cell carcinoma, colonic polyps, arthritis, urinary tract infection. Pulmonary point of view, doing okay. Continue to encourage p.o. diet. Physics Department Chair note reviewed. May continue Sustacal supplement 3 times a day, fall precaution, out of bed to chair. High risk for pressure ulcers. Thank you and we will follow with you. Terry Rich MD
--- NOTE | 2017-06-03 04:14 | PN ---
DATE: SUBJECTIVE: The patient is an 86-year-old male. The patient is examined at the bedside. No change in the status. Length of time discussion done with social workers and Verena Feliciano and Dr. Owens. The patient is looking comfortable. No hematuria or hematochezia. No swelling of the legs. No chest pain or palpitation. Getting physical therapy, but losing weight. Appetite is not much. PHYSICAL EXAMINATION: VITAL SIGNS: Temperature 98.6, pulse 76, blood pressure 129/58 and respiratory rate 15. HEENT: Head; normocephalic and atraumatic. Eyes; PERRLA. Extraocular muscles are intact. Conjunctivae clear. Nose patent. Mucous membranes moist. NECK: Supple. No carotid bruits. No JVD or thyromegaly. CHEST: Bilaterally symmetrical. LUNGS: Clear to auscultation. HEART: S1 and S2 positive. ABDOMEN: Soft. Bowel sounds are positive. No organomegaly. EXTREMITIES: No edema. No cyanosis. NEUROLOGIC: The patient is awake and alert. Moving all 4 extremities. No focal deficits. MEDICATIONS: Bacitracin, Flomax, Marinol, Norvasc, Protonix, Remeron, NS, Tylenol, Vantin and Zofran. LABORATORY DATA: White blood cells 7.4, hemoglobin 8.2, hematocrit 25.3 and platelets 392. Sodium 142, potassium 4.3, BUN 25, creatinine 0.8 and calcium 7.7. ASSESSMENT AND PLAN: Mr. Anjel Quinones is an 86-year-old male with anemia, hypocalcemia, has multiple medical problems, benign prostatic hypertrophy, obstructive uropathy, hypertension, failure to thrive, has renal insufficiency, [id number] secondary to benign prostatic hypertrophy with obstruction, history of transurethral resection of prostate and has right renal mass. He is in PCU getting physical therapy. The patient is scheduled for placement of suprapubic tube catheter prior to discharge from PCU, waiting for Dr. Blaine Munoz's input. The patient has advanced directive at home. According to that, the patient is do not resuscitate and do not intubate. Verena Feliciano helped me to get that. Now, we made the patient do not resuscitate and do not intubate. Verena spoke to the patient's and son. Family's concern is about the patient losing weight. We called GI consult. Even, we spoke to Dr. Owens. Dr. Owens saw the patient last admission. As per family, GI consult was called. As per family, GI consult was called. According to the family, after GI evaluation, they are thinking to take the patient home for comfort care. Family and the patient did not want to go back to senior living. Discussion held with Verena Feliciano also. Waiting for Dr. Owens's input. The patient is seen by Dr. Blaine Munoz, urologist. Tried to understand Dr. Munoz's plan from his dictation, but I filled my plan. I do not know his treatment plan. I saw Dr. Yuen's note also. The patient has malnutrition, suspect renal cell carcinoma, but as per the patient, he do not want any chemotherapy or radiation therapy. History of urinary tract infection. He has Proteus mirabilis in the urine. Gastrointestinal and deep venous thrombosis prophylaxis. Repeat labs. We will follow up. Chandrika Claros MD
--- NOTE | 2017-06-03 05:28 | CON ---
DATE: 06/02/2017 HISTORY OF PRESENT ILLNESS: This patient was seen and evaluated earlier today. This 86-year-old patient was admitted because of the weakness and unable to be taken care of at home. The patient has a history of significant weight loss and also anemic. The patient is known to have a right renal mass measuring about 2.8 cm, not biopsied. The patient was seen in the office earlier for weight loss and anemia, had an endoscopy and colonoscopy done. Endoscopy revealed gastritis and hiatus hernia. 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 The patient's family was told about these polyps and needs surgical backup for removal of the polyp, the patient did not follow up. The GI consult was requested in view of his weight loss and anemia and further followup. No vomiting. PAST MEDICAL HISTORY: Other past medical history is significant for history of cataract surgery, hematuria, and TURP before. FAMILY HISTORY: Noncontributory. SOCIAL HISTORY: He denies smoking. He drinks alcohol, red wine. ALLERGIES: HE IS ALLERGIC TO SULFA. REVIEW OF SYSTEMS: Positive as above. The patient is weak. No chest pain. No palpitation. No bleeding per rectum. Other systems reviewed, positive as above. PHYSICAL EXAMINATION GENERAL: The patient is lying on the bed, not in acute distress. VITAL SIGNS: Temperature 98.6, pulse 76, blood pressure 129/58, and respirations 15. HEENT: Atraumatic. Anicteric. NECK: Supple. HEART: S1 and S2 heard. LUNGS: Bilateral air entry present. ABDOMEN: Soft. There is no mass palpable. No tenderness. EXTREMITIES: No edema. No cyanosis. No clubbing. NEUROLOGIC: Alert and oriented. LABORATORY DATA: Hemoglobin 8.2, hematocrit 25.3, WBC 7.4, and platelets 392. Chemistry shows BUN 25, creatinine 0.8. LFTs are essentially unremarkable. The patient had a CAT scan of the abdomen and pelvis done with no IV or p.o. contrast, which was essentially unremarkable except patchy nodular infiltrate in both lungs. The renal lesion was not noted. The patient did have a CT scan with p.o. and IV contrast on 11/11/2016. It mentioned, a 2.8 cm solid enhancing mass was noticed in the right kidney. IMPRESSION AND PLAN: This 86-year-old patient admitted with anemia, weakness, renal mass, with weight loss, reduced p.o. intake, failure to thrive. The patient also being evaluated by the oncologist and urologist regarding the renal mass. The patient had an endoscopy and a colonoscopy done. EGD revealed only hiatus hernia and gastritis. Colonoscopy revealed polyp, diverticulosis, and internal hemorrhoids. There was a polyp measuring about 3 cm in the sigmoid colon, was not removed as it was in an acutely angulated area. The patient needs an endoscopic mucosal resection with surgical backup. The patient's family has not decided about that. I would recommend: 1. Celiac disease profile. 2. Stool for fat. 3. If the family is agreeable for the endoscopic mucosal resection with surgical backup, we will schedule for that. One other differential diagnosis of weight loss should include malabsorption in addition to the above. Thank you very much for allowing us to participate in the care of the patient. Kendrick Owens MD
[2017-06-03] MEDS: Pantoprazole 40 mg EC Tab PO SCH (06:14)
[2017-06-03] MEDS: Bacitracin 500 Units/gm Oint Foilpak UD TOP SCH ×4 (10:09→18:03)
[2017-06-03] MEDS: Sodium Chloride 0.9% 1,000 ML IV SCH (10:12)
[2017-06-03] MEDS: Cefpodoxime (Vantin) 200 mg Tab PO SCH ×2 (10:12→22:21)
--- NOTE | 2017-06-03 12:27 | CP.PCM.PN ---
<Elli Guthrie - Last Filed: 06/03/17 12:26> Subjective - Date & Time of Evaluation Date of Evaluation: 06/03/17 Time of Evaluation: 10:10 - Subjective Subjective: Seen and examined at the bedside earlier today, the patient denies nausea, vomiting, or abdominal pain. Patient reports poor appetite. No acute overnight events reported. Objective - Vital Signs/Intake and Output Vital Signs (last 24 hours): Temp Pulse Resp BP Pulse Ox 98.6 F 80 15 141/72 99 06/02/17 16:00 06/03/17 10:11 06/02/17 16:00 06/03/17 10:11 06/02/17 10:00 Intake and Output: 06/03/17 06/03/17 06:59 18:59 Output Total 700 Balance -700 - Medications Medications: Current Medications Acetaminophen (Tylenol 325mg Tab) 650 mg PO Q4 PRN; Protocol PRN Reason: Fever >100.5 F Amlodipine Besylate (Norvasc) 5 mg PO DAILY JULIAN PRN Reason: Protocol Last Admin: 06/03/17 10:11 Dose: 5 mg Bacitracin (Bacitracin) 1 ea TOP TID JULIAN PRN Reason: Protocol Last Admin: 06/03/17 10:10 Dose: 1 ea Cefpodoxime Proxetil (Vantin) 200 mg PO Q12 JULIAN PRN Reason: Protocol Stop: 06/04/17 10:01 Last Admin: 06/03/17 10:12 Dose: 200 mg Dronabinol (Marinol) 5 mg PO DAILY JULIAN PRN Reason: Protocol Last Admin: 06/02/17 10:17 Dose: 5 mg Sodium Chloride (Sodium Chloride 0.9%) 1,000 mls @ 100 mls/hr IV .Q10H JULIAN PRN Reason: Protocol Last Admin: 06/03/17 10:12 Dose: 100 mls/hr Mirtazapine (Remeron) 15 mg PO HS JULIAN Last Admin: 06/02/17 22:10 Dose: 15 mg Ondansetron HCl (Zofran Inj) 4 mg IVP Q4H PRN; Protocol PRN Reason: Nausea/Vomiting Pantoprazole Sodium (Protonix Ec Tab) 40 mg PO 0600 JULIAN PRN Reason: Protocol Last Admin: 06/03/17 06:14 Dose: 40 mg Tamsulosin HCl (Flomax) 0.4 mg PO PCB JULIAN PRN Reason: Protocol Last Admin: 06/03/17 10:10 Dose: 0.4 mg - Labs Labs: 06/02/17 07:30 06/02/17 07:30 - Constitutional Appears: No Acute Distress - Eye Exam Eye Exam: Normal appearance. absent: Scleral icterus - Neck Exam Neck Exam: Normal Inspection - Respiratory Exam Respiratory Exam: NORMAL BREATHING PATTERN. absent: Respiratory Distress - Cardiovascular Exam Cardiovascular Exam: +S1, +S2 - GI/Abdominal Exam GI & Abdominal Exam: Soft, Normal Bowel Sounds. 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 Owens. <Kendrick Owens V - Last Filed: 06/03/17 20:13> Objective - Vital Signs/Intake and Output Vital Signs (last 24 hours): Temp Pulse Resp BP Pulse Ox 97.6 F 81 15 134/74 95 06/03/17 17:05 06/03/17 17:05 06/03/17 17:05 06/03/17 17:05 06/03/17 10:00 - Medications Medications: Current Medications Acetaminophen (Tylenol 325mg Tab) 650 mg PO Q4 PRN; Protocol PRN Reason: Fever >100.5 F Amlodipine Besylate (Norvasc) 5 mg PO DAILY JULIAN PRN Reason: Protocol Last Admin: 06/03/17 10:11 Dose: 5 mg Bacitracin (Bacitracin) 1 ea TOP TID JULIAN PRN Reason: Protocol Last Admin: 06/03/17 18:03 Dose: 1 ea Cefpodoxime Proxetil (Vantin) 200 mg PO Q12 JULIAN PRN Reason: Protocol Stop: 06/04/17 10:01 Last Admin: 06/03/17 10:12 Dose: 200 mg Dronabinol (Marinol) 5 mg PO DAILY JULIAN PRN Reason: Protocol Last Admin: 06/03/17 15:00 Dose: Not Given Sodium Chloride (Sodium Chloride 0.9%) 1,000 mls @ 100 mls/hr IV .Q10H JULIAN PRN Reason: Protocol Last Admin: 06/03/17 10:12 Dose: 100 mls/hr Mirtazapine (Remeron) 15 mg PO HS [facility] Last Admin: 06/02/17 22:10 Dose: 15 mg Ondansetron HCl (Zofran Inj) 4 mg IVP Q4H PRN; Protocol PRN Reason: Nausea/Vomiting Pantoprazole Sodium (Protonix Ec Tab) 40 mg PO 0600 [facility] PRN Reason: Protocol Last Admin: 06/03/17 06:14 Dose: 40 mg Tamsulosin HCl (Flomax) 0.4 mg PO PCB JULIAN PRN Reason: Protocol Last Admin: 06/03/17 10:10 Dose: 0.4 mg - Labs Labs: 06/02/17 07:30 06/02/17 07:30 Attending/Attestation - Attestation I have personally seen and examined this patient.: Yes I have fully participated in the care of the patient.: Yes I have reviewed all pertinent clinical information, including history, physical exam and plan: Yes Notes (Text): This is an addendum to GI progress report dictated by Elli Guthrie APN.The patient was seen and examined earlier. Medical records, lab studies, imagings were reviewed. Last 24 hours events reviewed. Agreed with the above treatment plan as outlined in Elli Guthrie APN's notes the with the addition of the following Patient is tolerating a diet no complaints of any abdominal pain. 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 Family at to make decisions regarding this Discussed also with the Dr Claros Thank you very much for allowing us to participate in the care of the patient 06/03/17 20:11
--- NOTE | 2017-06-03 12:47 | CP.PCM.PN ---
Subjective - Date & Time of Evaluation Date of Evaluation: 06/03/17 Time of Evaluation: 11:40 - Subjective Subjective: Comfortable in bed, no fevers. Objective - Vital Signs/Intake and Output Vital Signs (last 24 hours): Temp Pulse Resp BP Pulse Ox 98.6 F 76 15 129/58 L 99 06/02/17 16:00 06/02/17 16:00 06/02/17 16:00 06/02/17 16:00 06/02/17 10:00 Intake and Output: 06/03/17 06/03/17 06:59 18:59 Output Total 700 Balance -700 - Medications Medications: Current Medications Acetaminophen (Tylenol 325mg Tab) 650 mg PO Q4 PRN; Protocol PRN Reason: Fever >100.5 F Amlodipine Besylate (Norvasc) 5 mg PO DAILY JULIAN PRN Reason: Protocol Last Admin: 06/02/17 10:17 Dose: 5 mg Bacitracin (Bacitracin) 1 ea TOP TID JULIAN PRN Reason: Protocol Last Admin: 06/02/17 10:17 Dose: 1 ea Cefpodoxime Proxetil (Vantin) 200 mg PO Q12 JULIAN PRN Reason: Protocol Stop: 06/04/17 10:01 Last Admin: 06/02/17 22:10 Dose: 200 mg Dronabinol (Marinol) 5 mg PO DAILY JULIAN PRN Reason: Protocol Last Admin: 06/02/17 10:17 Dose: 5 mg Sodium Chloride (Sodium Chloride 0.9%) 1,000 mls @ 100 mls/hr IV .Q10H JULIAN PRN Reason: Protocol Last Admin: 06/02/17 10: Dose: 100 mls/hr Mirtazapine (Remeron) 15 mg PO HS JULIAN Last Admin: 06/02/17 22:10 Dose: 15 mg Ondansetron HCl (Zofran Inj) 4 mg IVP Q4H PRN; Protocol PRN Reason: Nausea/Vomiting Pantoprazole Sodium (Protonix Ec Tab) 40 mg PO 0600 JULIAN PRN Reason: Protocol Last Admin: 06/03/17 06:14 Dose: 40 mg Tamsulosin HCl (Flomax) 0.4 mg PO PCB JULIAN PRN Reason: Protocol Last Admin: 06/02/17 17:50 Dose: 0.4 mg - Labs Labs: 06/02/17 07:30 06/02/17 07:30 - Constitutional Appears: Non-toxic, No Acute Distress - Head Exam Head Exam: NORMAL INSPECTION - Respiratory Exam Respiratory Exam: Decreased Breath Sounds - Cardiovascular Exam Cardiovascular Exam: +S1, +S2 - GI/Abdominal Exam GI & Abdominal Exam: Soft. absent: Tenderness Assessment and Plan - Assessment and Plan (Free Text) Plan: Assessment Proteus mirabilis UTI/cystitis in a patient with urinary retention renal cancer bilateral cataracts colonic polyps arthritis Plan Continue PO Vantin for another 2-3 days and will continue to monitor clinically
[2017-06-03 14:20] VITALS: O2SAT 95
--- NOTE | 2017-06-03 15:12 | CP.PCM.PN ---
Subjective - Date & Time of Evaluation Date of Evaluation: 06/03/17 Time of Evaluation: 12:00 - Subjective Subjective: Alert,denies nausea, vomiting diarrhea. Offers no complaints Objective - Vital Signs/Intake and Output Vital Signs (last 24 hours): Temp Pulse Resp BP Pulse Ox 98.6 F 80 15 141/72 99 06/02/17 16:00 06/03/17 10:11 06/02/17 16:00 06/03/17 10:11 06/02/17 10:00 Intake and Output: 06/03/17 06/03/17 06:59 18:59 Output Total 700 Balance -700 - Medications Medications: Current Medications Acetaminophen (Tylenol 325mg Tab) 650 mg PO Q4 PRN; Protocol PRN Reason: Fever >100.5 F Amlodipine Besylate (Norvasc) 5 mg PO DAILY JULIAN PRN Reason: Protocol Last Admin: 06/03/17 10:11 Dose: 5 mg Bacitracin (Bacitracin) 1 ea TOP TID JULIAN PRN Reason: Protocol Last Admin: 06/03/17 10:10 Dose: 1 ea Cefpodoxime Proxetil (Vantin) 200 mg PO Q12 JULIAN PRN Reason: Protocol Stop: 06/04/17 10:01 Last Admin: 06/03/17 10:12 Dose: 200 mg Dronabinol (Marinol) 5 mg PO DAILY JULIAN PRN Reason: Protocol Last Admin: 06/02/17 10:17 Dose: 5 mg Sodium Chloride (Sodium Chloride 0.9%) 1,000 mls @ 100 mls/hr IV .Q10H JULIAN PRN Reason: Protocol Last Admin: 06/03/17 10:12 Dose: 100 mls/hr Mirtazapine (Remeron) 15 mg PO HS JULIAN Last Admin: 06/02/17 22:10 Dose: 15 mg Ondansetron HCl (Zofran Inj) 4 mg IVP Q4H PRN; Protocol PRN Reason: Nausea/Vomiting Pantoprazole Sodium (Protonix Ec Tab) 40 mg PO 0600 JULIAN PRN Reason: Protocol Last Admin: 06/03/17 06:14 Dose: 40 mg Tamsulosin HCl (Flomax) 0.4 mg PO PCB JULIAN PRN Reason: Protocol Last Admin: 06/03/17 10:10 Dose: 0.4 mg - Labs Labs: 06/02/17 07:30 06/02/17 07:30 - Constitutional Appears: Cachectic, Chronically Ill - Eye Exam Eye Exam: Normal appearance, PERRL - ENT Exam ENT Exam: Mucous Membranes Moist - Respiratory Exam Respiratory Exam: Clear to Ausculation Bilateral, NORMAL BREATHING PATTERN - Cardiovascular Exam Cardiovascular Exam: REGULAR RHYTHM, +S1, +S2 - GI/Abdominal Exam GI & Abdominal Exam: Soft, Normal Bowel Sounds - Extremities Exam Extremities Exam: Full ROM, Normal Inspection - Neurological Exam Neurological Exam: Alert - Skin Skin Exam: Dry, Warm Assessment and Plan - Assessment and Plan (Free Text) Assessment: 86 year old male with history of BPH, malnutrition, cachexia, right renal mass admitted to [facility] for deconditioning . Patient's has expressed interest in hospice services. Hospice care explained in detail, questions answered. Family states that patient does not want to be hospitalized in the future and prefers to be kept comfortably at home. Family has agreed to meet with management liaison. A copy of patients Advanced Directive si placed in chart Time spent with family in goals of care and end of life discussion, 30 minutes Plan: Hospice evaluation Advance care planning
[2017-06-03 17:06] VITALS: PULSE 81; RESP 15; TEMP 97.6
--- NOTE | 2017-06-04 03:21 | PN ---
PULMONARY PROGRESS NOTE DATE: 06/03/2017 REFERRING PHYSICIAN: Dr. Claros. SUBJECTIVE: He is lying on the bed at 45 degree, not eating his dinner. According to the nursing staff, his family does bring food from outside. Denied any headache, no rhinitis. No nausea, vomiting, or diarrhea. No leg pain or leg swelling. OBJECTIVE GENERAL: No acute distress. VITAL SIGNS: Temperature 98, heart rate 81, respiratory rate is 20, blood pressure 134/74 and pulse ox 95% on room air. HEENT: Moist mucous membranes. Crowded airway. NECK: Supple. No JVD. LUNGS: Fair airflow with rhonchi. HEART: S1 and S2. ABDOMEN: Soft and nontender. No organomegaly. EXTREMITIES: No edema. NEUROLOGIC: Awake and alert. Follows simple commands. MEDICATIONS: He is on bacitracin ointment to the affected area three times a day, Flomax 0.4 mg daily, Marinol 5 mg daily, Norvasc 5 mg daily, Protonix 40 mg daily, Remeron 50 mg at bedtime, IV fluid, normal saline 100 mL per hour, Tylenol p.r.n., Vantin 200 mg twice a day, and Zofran on p.r.n. basis. LABORATORY DATA: Reviewed and no new lab is available since yesterday. IMPRESSION AND PLAN: Malnutrition, anemia, hypertension, suspected renal cell carcinoma, colonic polyp, arthritis, urinary tract infection. Pulmonary point of view, doing okay. Keep head at 45 degree. Aspiration precaution. Encourage p.o. intake. Fall precaution. Continue therapy. Thank you and we will follow with you. Terry Rich MD
[2017-06-04] MEDS: Pantoprazole 40 mg EC Tab PO SCH (06:20)
[2017-06-04] MEDS: Sodium Chloride 0.9% 1,000 ML IV SCH ×2 (06:20→10:49)
--- NOTE | 2017-06-04 07:34 | PN ---
DATE: SUBJECTIVE: The patient is an 86-year-old male. The patient was seen and examined on the bedside, looking comfortable. No nausea, vomiting, or diarrhea. No hematuria or hematochezia. No swelling of the legs. No chest pain. No palpitation. Resting comfortably. PHYSICAL EXAMINATION: VITAL SIGNS: Temperature 97.6, pulse 61, blood pressure 135/74, and respiratory rate 15. HEENT: Head is normocephalic and atraumatic. Eyes; PERRLA. Extraocular muscles intact. Conjunctivae clear. Nose patent. Mucous membranes moist. NECK: Supple. No carotid bruits, JVD, or thyromegaly. CHEST: Bilaterally symmetrical. HEART: S1 and S2 positive. LUNGS: Clear to auscultation. ABDOMEN: Soft. Bowel sounds positive. No organomegaly. EXTREMITIES: No edema. No cyanosis. NEUROLOGIC: The patient is awake and alert. Moving all 4 extremities. No focal deficits. LABORATORY DATA: We do not have recent labs, I reviewed old labs. MEDICATIONS: Bacitracin, Flomax, Marinol, Norvasc, Protonix, Remeron, NS, Tylenol, Vantin, and Zofran. ASSESSMENT AND PLAN: Ms. Anjel Quinones with multiple medical problems, urinary tract infection and cystitis with Proteus mirabilis, urinary retention, renal cancer, bilateral cataracts, chronic polyp, and arthritis. The patient is on p.o. Vantin for another 2 to 3 days and we will continue monitoring clinically as per Infectious Disease. Urologist, Dr. Blaine Munoz is on the case also. GI saw the patient as per the patient's request. Length of time discussion done with Dr. Owens. The patient has history of loosing weight, poor appetite, failure to thrive, colon polyp not removed as angulated area. It is big in size in the sigmoid colon as per Dr. Owens recommended for EMR in the past. The patient did not followup. Now Dr. Owens wanted to do surgery, only if surgeon is standing on the bedside during operating theater, but now the plan to follow up stool for fat, leave the serology results pending. for EMR with surgical backup. The family to make decision. Diet as tolerated. Gastrointestinal prophylaxis. Deep venous thrombosis prophylaxis. Reviewed Verena Feliciano's notes also. She has clearly spoke to the patient's . is interested to put the patient in home comfort care. In future if the patient refused go to hospitalization, this as do not resuscitate and do not intubate. Waiting for the final decision. Meanwhile continue treatment. We will follow up. Chandrika Claros MD MTDD
--- NOTE | 2017-06-04 08:32 | PCM.URO ---
Urology Progress Note - Objective Lab Results Last 24 Hours: Laboratory Results - last 24 hr 06/03/17 07:40 IgA 176 Vital Signs: Vital Signs - 24 hr 06/03/17 06/03/17 06/03/17 10:00 10:11 17:05 Temperature 97.4 F L 97.6 F Pulse Rate 80 80 81 Respiratory 20 15 Rate Blood Pressure 141/72 141/72 134/74 O2 Sat by Pulse 95 Oximetry
[2017-06-04] MEDS: Bacitracin 500 Units/gm Oint Foilpak UD TOP SCH ×2 (10:49→10:50)
[2017-06-04] MEDS: Cefpodoxime (Vantin) 200 mg Tab PO SCH (10:51)
[2017-06-04 10:59] VITALS: BP 129/61
--- NOTE | 2017-06-04 12:05 | CP.PCM.PN ---
Subjective - Date & Time of Evaluation Date of Evaluation: 06/04/17 Time of Evaluation: 10:00 - Subjective Subjective: Seen and examined at bedside earlier today, the chart was reviewed. No acute overnight events reported. Patient reported to still have poor appetite but nursing reports that patient eats food brought in by family. Patient denies nausea, vomiting or abdominal pain. Objective - Vital Signs/Intake and Output Vital Signs (last 24 hours): Temp Pulse Resp BP Pulse Ox 97.6 F 81 15 129/61 95 06/03/17 17:05 06/03/17 17:05 06/03/17 17:05 06/04/17 10:50 06/03/17 10:00 - Medications Medications: Current Medications Acetaminophen (Tylenol 325mg Tab) 650 mg PO Q4 PRN; Protocol PRN Reason: Fever >100.5 F Amlodipine Besylate (Norvasc) 5 mg PO DAILY JULIAN PRN Reason: Protocol Last Admin: 06/04/17 10:50 Dose: Not Given Bacitracin (Bacitracin) 1 ea TOP TID JULIAN PRN Reason: Protocol Last Admin: 06/04/17 10:50 Dose: Not Given Dronabinol (Marinol) 5 mg PO DAILY JULIAN PRN Reason: Protocol Last Admin: 06/04/17 10:56 Dose: Not Given Sodium Chloride (Sodium Chloride 0.9%) 1,000 mls @ 100 mls/hr IV .Q10H JULIAN PRN Reason: Protocol Last Admin: 06/04/17 10:49 Dose: Not Given Mirtazapine (Remeron) 15 mg PO HS JULIAN Last Admin: 06/03/17 22:21 Dose: 15 mg Ondansetron HCl (Zofran Inj) 4 mg IVP Q4H PRN; Protocol PRN Reason: Nausea/Vomiting Pantoprazole Sodium (Protonix Ec Tab) 40 mg PO 0600 JULIAN PRN Reason: Protocol Last Admin: 06/04/17 06:20 Dose: 40 mg Tamsulosin HCl (Flomax) 0.4 mg PO PCB JULIAN PRN Reason: Protocol Last Admin: 06/04/17 10:50 Dose: Not Given - Labs Labs: 06/02/17 07:30 06/02/17 07:30 - Constitutional Appears: Cachectic - Head Exam Head Exam: NORMOCEPHALIC - Eye Exam Eye Exam: absent: Scleral icterus - ENT Exam ENT Exam: Mucous Membranes Moist - Neck Exam Neck Exam: Normal Inspection - Respiratory Exam Respiratory Exam: NORMAL BREATHING PATTERN. absent: Respiratory Distress - Cardiovascular Exam Cardiovascular Exam: +S1, +S2 - GI/Abdominal Exam GI & Abdominal Exam: Soft, Normal Bowel Sounds. absent: Guarding, Tenderness, Rebound - Neurological Exam Neurological Exam: Alert, Awake, Oriented x3 - Skin Skin Exam: Dry, Warm Assessment and Plan - Assessment and Plan (Free Text) Assessment: ASSESSMENT: Weight loss, poor appetite, Failure to thrive Renal carcinoma Anemia Colon polyp, not removed was in angulated area, has been recommended for EMR in the past, pt did not FU PLAN: celiac disease serology result pending diet as tolerated continue GI prophylaxsis DVT prophylaxisis Patient has history of colon polyps which has not been removed, recommended EMR , it has been discussed with patient and family on numerous occasions on day of procedure and this admission regarding EMR and that polyps has not been removed, spoke to patient regarding this and she stated that "he is too weak now", and she mentioned that he will go home on hospice. She did mention to me that Dr. Owens spoke to her about EMR and that he needed to FU. The patient is going to be discharged home today on home hoispice. Seen and discussed w/ Dr. Owens.
--- NOTE | 2017-06-04 12:24 | CP.PCM.PN ---
Subjective - Date & Time of Evaluation Date of Evaluation: 06/04/17 Time of Evaluation: 11:25 - Subjective Subjective: Comfortable, no fevers. Objective - Vital Signs/Intake and Output Vital Signs (last 24 hours): Temp Pulse Resp BP Pulse Ox 97.6 F 81 15 134/74 95 06/03/17 17:05 06/03/17 17:05 06/03/17 17:05 06/03/17 17:05 06/03/17 10:00 - Medications Medications: Current Medications Acetaminophen (Tylenol 325mg Tab) 650 mg PO Q4 PRN; Protocol PRN Reason: Fever >100.5 F Amlodipine Besylate (Norvasc) 5 mg PO DAILY JULIAN PRN Reason: Protocol Last Admin: 06/03/17 10:11 Dose: 5 mg Bacitracin (Bacitracin) 1 ea TOP TID JULIAN PRN Reason: Protocol Last Admin: 06/03/17 18:03 Dose: 1 ea Cefpodoxime Proxetil (Vantin) 200 mg PO Q12 JULIAN PRN Reason: Protocol Stop: 06/04/17 10:01 Last Admin: 06/03/17 22:21 Dose: 200 mg Dronabinol (Marinol) 5 mg PO DAILY JULIAN PRN Reason: Protocol Last Admin: 06/03/17 15:00 Dose: Not Given Sodium Chloride (Sodium Chloride 0.9%) 1,000 mls @ 100 mls/hr IV .Q10H JULIAN PRN Reason: Protocol Last Admin: 06/04/17 06:20 Dose: 100 mls/hr Mirtazapine (Remeron) 15 mg PO HS [facility] Last Admin: 06/03/17 22:21 Dose: 15 mg Ondansetron HCl (Zofran Inj) 4 mg IVP Q4H PRN; Protocol PRN Reason: Nausea/Vomiting Pantoprazole Sodium (Protonix Ec Tab) 40 mg PO 0600 JULIAN PRN Reason: Protocol Last Admin: 06/04/17 06:20 Dose: 40 mg Tamsulosin HCl (Flomax) 0.4 mg PO PCB JULIAN PRN Reason: Protocol Last Admin: 06/03/17 10:10 Dose: 0.4 mg - Labs Labs: 06/02/17 07:30 06/02/17 07:30 - Constitutional Appears: Non-toxic, No Acute Distress - Head Exam Head Exam: NORMAL INSPECTION - Respiratory Exam Respiratory Exam: Decreased Breath Sounds - Cardiovascular Exam Cardiovascular Exam: +S1, +S2 - GI/Abdominal Exam GI & Abdominal Exam: Soft. absent: Tenderness Assessment and Plan - Assessment and Plan (Free Text) Plan: Assessment Proteus mirabilis UTI/cystitis in a patient with urinary retention renal cancer bilateral cataracts colonic polyps arthritis Plan Continue PO Vantin for another 1-2 days and will continue to monitor clinically
--- NOTE | 2017-06-04 16:29 | PN ---
SUBJECTIVE: The patient is an 86-year-old male with multiple medical issues. The patient was admitted to the medical side for obstructive uropathy and failure to thrive. The patient also was found to have acute renal failure. Psych consult was called for evaluation of possible depression and failure to thrive. This content writer is seeing the patient for the past week. Remeron was started. The patient tolerated that well. The patient had a lot of medical issues. The patient was seen by Ms. Feliciano for advanced care planning. The patient currently is DNI and DNR, was evaluated by Hospice. The patient was seen today. The patient seems to be withdrawn. The patient wants to be left alone. The patient denied thoughts of harming himself or others, was able to indicate his preferences. As per note from the medical team, the patient wants to have comfort care and wants to be discharged back home. There is nothing else that can be implemented into the patient care, family involved, urologist involved, medical team as well, Infectious Disease also involved. OBJECTIVE: Vital signs seem to be stable, temperature 97.6, pulse is 81, blood pressure 134/74. MEDICATIONS: Reviewed. MENTAL STATUS EXAMINATION: The patient presented to be withdrawn. Flat affect. Intermittent eye contact. Speech was monotonic, low volume. Mood described not that good. Affect was constricted. Thought process coherent, goal directed. Thought content, the patient denied visual, auditory, or tactile hallucinations. Denied paranoid ideation. The patient denied thoughts of harming himself or others. Denied intents or plan. Insight and judgment seem to be fair. Impulses are well controlled. IMPRESSION: Rule out mood disorder due to general medical condition, rule out adjustment disorder. PLAN: Continue current management. There is nothing else can be implemented into the patient's care. Remeron was started to boost appetite and help with the sleep as well as for depressive symptoms. The patient was seen by Palliative Care. The patient wants to go to hospice and was able to indicate his preferences. Meanwhile, this content writer will sign off from this case. Thank you very much for letting me participate in care of your patient. Should you have any questions, give me a call back. Arely Lara MD [facility] # [phone]
--- NOTE | 2017-06-05 23:59 | DS ---
The patient is an 86-year-old male. The patient was admitted to TCU on 05/28/2017, discharged home on 06/04/2017. CHIEF COMPLAINT: Fatigue and tiredness. HISTORY OF PRESENT ILLNESS: Mr. Anjel Quinones is an 86-year-old male, was first time seen by me at [facility] rehab, private patient of Dr. Griffin Guy, was discharged from rehab to home. Then one day, called me that she cannot take care of him more and he is getting fatigued, tired, and then I told her to bring the patient to the [facility]. The patient was seen in the emergency room in [facility], admitted on the acute side. Consult was called with Dr. Munoz and the patient was having urine retention, Beck catheter was put and the patient has renal mass. I talked to the patient's and son about making further diagnosis. Actually, consult was called with Dr. Sony Watts for biopsy and Dr. Cui, Nephrology, but the patient's family was not comfortable with biopsy. We transferred the patient to TCU. He stated the patient got physical therapy, was eating enough, then we involved Verena Feliciano, comfort care nurse. She spoke to the patient's , son, and by myself and the wanted the GI, Dr. Owens to see the patient. Dr. Owens saw the patient and then talked to me. 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 I asked the patient personally that in case if he will get diagnosis of cancer, he wants to go for chemotherapy and radiation therapy, he refused. He just wants comfort care. Tried to send the patient to [facility], but family cannot afford that, it was 11,000 dollars per month. According to the , she cannot afford, then now we made hospice at home. Prescription of the medication was given according to , she has bedside commode, bed walker, everything at home. Discussion done with the patient's and family and discharged patient home with home care. PAST MEDICAL HISTORY: Cataract surgery, hematuria and TURP. FAMILY HISTORY: Father and mother noncontributory. HABITS: Never smoked. No drugs. No ethanol. Occasionally red wine. ALLERGIES: THE PATIENT IS ALLERGIC TO SULFA. HOME MEDICATIONS: Reviewed by me. REVIEW OF SYSTEMS: The patient was seen and examined on the bedside in the morning, looking comfortable. No nausea, vomiting or diarrhea. No hematuria or hematochezia. No swelling of the legs. No chest pain. No palpitation. No headache. No dizziness. No fever. No chills. Eating appropriate. PHYSICAL EXAMINATION: VITAL SIGNS: Temperature 97.6, pulse 81, blood pressure 134/74, and respiratory rate 15 and pulse oxymetry of 95. HEENT: Head is normocephalic and atraumatic. Eyes; PERRLA. Extraocular muscles are intact. Conjunctivae are clear. Nose is patent. NECK: Supple. No carotid bruits. No JVD or thyromegaly. CHEST: Bilaterally symmetrical. HEART: S1 and S2 positive. LUNGS: Clear to auscultation. ABDOMEN: Soft. Bowel sounds present. No organomegaly. EXTREMITIES: No edema. No cyanosis. NEUROLOGIC: The patient is awake and alert. Moving all 4 extremities. No focal deficits. MEDICATIONS: Tylenol, Norvasc, bacitracin, Vantin, Marinol, NS, Remeron, Zofran, Protonix, and Flomax. LABORATORY DATA: White blood cell 7.4, hemoglobin 8.2, hematocrit 25.3, and platelets 392. Sodium 140, potassium 4.3, BUN 25, creatinine 0.9, and glucose 88. ASSESSMENT AND PLAN: Mr. Anjel Quinones is an 86-year-old male with anemia, renal insufficiency, has Proteus mirabilis urinary tract infection, cystitis in the patient with urinary retention. Antibiotics given. He will be discharged home with Vantin. Renal tumor, rule out renal cancer; bilateral cataracts, colonic polyp, arthritis. We gave prescription of p.o. Vantin for 1 to 2 days. Continue monitoring the patient, seen by GI covering Dr. Owens with nurse practitioner, history of weight loss, poor appetite, failure to thrive, colonic polyp was not removed as the angulated area has been recommended for EMR in the past, but the patient and refused. Celiac disease serology results are pending. Diet as tolerated. Continue gastrointestinal prophylaxis, deep venous thrombosis prophylaxis. Discussion done with Dr. Owens, with the patient, the patient's , most appreciated. The patient will be under care of hospice care. Chandrika Claros MD
== END 2017-06-04 13:43 | disposition hospice, home (50) | DRG 945 ==
LOC: TRCU 20:40
PROVIDERS: ADMIT Internal Medicine; ATTEND Internal Medicine
PROC: F07Z9FZ Gait Training/Functional Ambulation Treatment using Assistive, Adaptive, Supportive or Protective Equipment (ICD-10-PCS; principal; 2017-05-29)
PROC: F07Z5FZ Bed Mobility Treatment using Assistive, Adaptive, Supportive or Protective Equipment (ICD-10-PCS; 2017-05-29)
PROC: F07Z8FZ Transfer Training Treatment using Assistive, Adaptive, Supportive or Protective Equipment (ICD-10-PCS; 2017-05-29)
PROC: F07L6YZ Therapeutic Exercise Treatment of Musculoskeletal System - Lower Back / Lower Extremity using Other Equipment (ICD-10-PCS; 2017-05-30)
PROC: F08Z1FZ Dressing Techniques Treatment using Assistive, Adaptive, Supportive or Protective Equipment (ICD-10-PCS; 2017-05-31)
PROC: F08Z2FZ Grooming/Personal Hygiene Treatment using Assistive, Adaptive, Supportive or Protective Equipment (ICD-10-PCS; 2017-06-02)
DX: R53.1 Weakness (principal); R26.9 Unspecified abnormalities of gait and mobility; C64.9 Malignant neoplasm of unspecified kidney, except renal pelvis; E46 Unspecified protein-calorie malnutrition; R64 Cachexia; N30.91 Cystitis, unspecified with hematuria; N13.8 Other obstructive and reflux uropathy; Z68.1 Body mass index [BMI] 19.9 or less, adult; R62.7 Adult failure to thrive; N40.1 Benign prostatic hyperplasia with lower urinary tract symptoms; R33.8 Other retention of urine; B96.4 Proteus (mirabilis) (morganii) as the cause of diseases classified elsewhere; I10 Essential (primary) hypertension; H26.9 Unspecified cataract; M19.90 Unspecified osteoarthritis, unspecified site; N32.0 Bladder-neck obstruction; D64.9 Anemia, unspecified; F43.21 Adjustment disorder with depressed mood; F06.30 Mood disorder due to known physiological condition, unspecified; Z66 Do not resuscitate; Z51.5 Encounter for palliative care; Z86.010 Personal history of colon polyps; Z87.891 Personal history of nicotine dependence; Z88.2 Allergy status to sulfonamides